=== PATIENT | female | born 2000 | race Caucasian/White ===

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

== ENCOUNTER 2022-07-28 07:23 | Emergency (ER) | payer OTHER, SELFPAY ==
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
--- NOTE | ~2022-07-28 | XR_ITS ---
AP view of the pelvis Clinical history: Pain Findings: No acute fracture or dislocation is seen. Osseous alignment is anatomic. Bilateral hip and SI joint spaces are preserved. Soft tissues are unremarkable. Impression: No significant abnormality is seen. Reviewed, dictated and finalized at location M. Impression: No significant abnormality is seen.
[2022-07-28 07:22] VITALS: BP 127/79; PULSE 95; RESP 14; TEMP 36.4; O2SAT 100
--- NOTE | 2022-07-28 07:40 | PC.NURSE ---
Dr. Melvin at bedside to assess pt.
[2022-07-28] MEDS: KETOROLAC (*BKC) 60 MG/2 ML VIAL IM (07:52)
--- NOTE | 2022-07-28 08:03 | PC.NURSE ---
Patient off unit to radiology.
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
[2022-07-28 10:01] VITALS: BP 131/84; PULSE 68; RESP 18; O2SAT 100
== END 2022-07-28 10:02 | disposition home or self-care (01) ==
PROVIDERS: Emergency Provider Emergency Medicine
DX: S39.012A Strain of muscle, fascia and tendon of lower back, initial encounter (principal); M25.552 Pain in left hip; V47.6XXA Car passenger injured in collision with fixed or stationary object in traffic accident, initial encounter; Y92.488 Other paved roadways as the place of occurrence of the external cause
CPT/HCPCS: 72100; 72170; 96372; 99283; J1885

== ENCOUNTER 2022-08-27 09:13 | Emergency (ER) | payer OTHER, SELFPAY ==
[2022-08-27 09:44] VITALS: BP 137/92; PULSE 88; RESP 18; TEMP 36.8; O2SAT 96
--- NOTE | 2022-08-27 10:41 | ED.URI ---
HPI - URI/Sore Throat General Chief Complaint: Upper Respiratory Infection Stated Complaint: st Time Seen by Provider: 08/27/22 09:49 Source: patient Mode of arrival: ambulatory Limitations: no limitations History of Present Illness HPI Narrative: Patient is a 22 y/o female who presents to the ED with c/o sore throat. Patient reports having a sore throat for the last 1 week. She also reports having some mild congestion, but denies cough, fevers, difficulty breathing or swallowing, nausea, vomiting, abdominal pain. Patient has been around another individual who did test positive for strep throat. She has not tried anything for symptoms. Related Data Home Medications Medication Instructions Recorded Confirmed albuterol sulfate 90 mcg/actuation 2 puff inhalation PRN PRN 09/08/20 11/16/20 aerosol inhaler Shortness Of Breath fluticasone propionate 44 See Rx Instructions .Route .COMPLEX 09/08/20 11/16/20 mcg/actuation HFA aerosol inhaler (Flovent HFA) vits no.130-ferrous fum 1 tablet PO DAILY 09/08/20 11/16/20 27 mg iron-folic acid 800 mcg tablet ( Vitamin) Allergies Allergy/AdvReac Type Severity Reaction Status Date / Time latex Allergy Mild Rash Verified 08/27/22 11:08 Review of Systems Review of Systems: CONSTITUTIONAL: Denies fever, chills, or sweats. ENT: See HPI. CARDIOVASCULAR: Denies chest pain. RESPIRATORY: Denies cough or dyspnea. GASTROINTESTINAL: Denies abdominal pain, nausea, vomiting. All systems reviewed & are unremarkable except as noted in HPI and below PMFSH Past Medical History Medical History Asthma (normal spontaneous vaginal delivery) Surgical History Surgical History No pertinent past surgical history Social History Social History Smoking status: Never smoker Second hand tobacco smoke exposure: No Substance use: never Gender identity (if verbalized by the patient): Female Spiritual care concerns: No Exam Narrative: GENERAL: Well appearing, obese, non-toxic, in no acute distress. HEAD: Normocephalic, atraumatic. ENT: Minimal posterior pharynx erythema, no tonsillar hypertrophy or exudate. No stridor or dysphagia. No trismus. Patient tolerating secretions. NECK: Supple. No significant adenopathy, no masses. RESPIRATORY: Airway patent, respirations nonlabored. Clear to auscultation bilaterally, no rales, rhonchi, wheezing. CARDIOVASCULAR: Regular rate and rhythm without murmurs, rubs, or gallops. Radial pulses 2+ and equal bilaterally. MUSCULOSKELETAL: Moves all extremities. Strength/ROM intact without gross deformities. SKIN: Warm, dry, normal color. No rashes. NEURO: A&O X3. Speech clear. Cranial nerves II-XII grossly intact. Steady gait. No ataxic movements. PSYCHIATRIC: Appropriate mood and affect. Normal interaction. Course Vital Signs Vital signs: Vital Signs Temperature 98.2 F 08/27/22 09:44 Pulse Rate 88 08/27/22 09:44 Respiratory Rate 18 08/27/22 09:44 Blood Pressure 137/92 H 08/27/22 09:44 Pulse Oximetry 96 08/27/22 09:44 Oxygen Delivery Room Air 08/27/22 09:44 Temperature 98.2 F 08/27/22 09:44 Pulse Rate 65 08/27/22 11:46 Respiratory Rate 16 08/27/22 11:46 Blood Pressure 110/86 08/27/22 11:46 Pulse Oximetry 98 08/27/22 11:46 Oxygen Delivery Room Air 08/27/22 11:09 MDM - URI/Sore Throat MDM Narrative Medical decision making narrative: Patient presented to ED with 1 week history of sore throat. Exposure to someone with strep throat. Exam with minimal erythema, no tonsillar hypertrophy or exudate. No concern for [employer]. No concern for airway compromise. Tolerating secretions. Vital stable. Afebrile. COVID, influenza, strep testing negative in the ED. Patient did have recen
[2022-08-27 11:09] VITALS: O2SAT 97
[2022-08-27 11:22] LABS: Strep Group A RT-PCR NOT DETECTED (Negative)
[2022-08-27 11:36] LABS: Influenza A QL RT-PCR Negative (Negative); Influenza B QL RT-PCR Negative (Negative); SARS-CoV-2 RNA PCR Negative (Negative)
[2022-08-27 11:46] VITALS: BP 110/86; PULSE 65; RESP 16; O2SAT 98
== END 2022-08-27 11:52 | disposition home or self-care (01) ==
PROVIDERS: Emergency Provider Physician Assistant
DX: J02.9 Acute pharyngitis, unspecified (principal); Z20.822 Contact with and (suspected) exposure to COVID-19; J45.909 Unspecified asthma, uncomplicated
CPT/HCPCS: 87636; 87651; 99283

== ENCOUNTER 2022-09-08 08:57 | Emergency (ER) | payer OTHER, SELFPAY ==
[2022-09-08] VITALS (19 sets, daily range): BP systolic 87–129; BP diastolic 56–90; PULSE 60–92; RESP 13–20; TEMP 36.2–36.8; O2SAT 92–100
[2022-09-08 09:27] LABS: Basophils Percent Auto 0.6 % (0.2-1.2); Eosinophils Absolute Auto 0.3 K/mm3 (0-0.3); Eosinophils Percent Auto 4.3 % (0-4.4); Hematocrit 42.6 % (37.0-47.0); Hemoglobin 13.5 g/dL (12.0-15.0); Immature Granulocyte Absolute 0.02 K/mm3 (0.00-0.031); Immature Granulocyte Percent A 0.3 % (0-0.5); Lymphocytes Absolute Auto 2.52 K/mm3 (0.9-3.2); Lymphocytes Percent Auto 39.9 % (18.3-44.2); Mean Corpuscular HGB Conc 31.7 g/dl (32-36); Mean Corpuscular Hemoglobin 26.9 pg (26-34); Mean Platelet Volume 10.9 fl (7.4-10.4); Monocytes Absolute Auto 0.5 K/mm3 (0.1-0.6); Monocytes Percent Auto 7.6 % (2.6-8.5); Neutrophils Percent Auto 47.3 % (45.5-73.1); Platelet Count Result 327 k/mm3 (150-375); Red Blood Count 5.01 M/mm3 (4.2-5.4); Red Cell Distribution Width 15.9 % (11.5-14.5); White Blood Count 6.3 K/mm3 (4.5-10.0)
[2022-09-08 09:36] LABS: Alanine Aminotransferase 19 U/L (6-35); Albumin Level 3.9 g/dL (3.5-5.1); Alkaline Phosphatase 83 U/L (38-126); Anion Gap 10 mmol/L (8-16); Aspartate Amino Transferase 21 U/L (14-36); Bilirubin,Total 0.4 mg/dL (0.2-1.3); Blood Urea Nitrogen 18 mg/dL (7-17); Calcium 8.3 mg/dL (8.4-10.2); Carbon Dioxide 20 mmol/L (22-30); Chloride 107 mmol/L (98-107); Estimated CRCL calculation 139 ml/min; Estimated Glomerular Filt Rate > 60; Glucose 98 mg/dL (65-110); Lipase 66 U/L (23-300); Potassium 4.1 mmol/L (3.4-5.0); Sodium 137 mmol/L (137-145)
--- NOTE | 2022-09-08 12:05 | ED.GENADULT ---
HPI - General Adult General Chief complaint: Nausea/Vomiting/Diarrhea Stated complaint: n/v Time Seen by Provider: 09/08/22 11:17 History of Present Illness HPI narrative: 22-year-old female presented emergency department for evaluation of intermittent abdominal cramping and nausea without vomiting. Patient states symptoms started few days ago and have been intermittent. Patient states she was feeling better yesterday but then symptoms worsened again today Related Data Home Medications Medication Instructions Recorded Confirmed albuterol sulfate 90 mcg/actuation 2 puff inhalation PRN PRN 09/08/20 11/16/20 aerosol inhaler Shortness Of Breath fluticasone propionate 44 See Rx Instructions .Route .COMPLEX 09/08/20 11/16/20 mcg/actuation HFA aerosol inhaler (Flovent HFA) vits no.130-ferrous fum 1 tablet PO DAILY 09/08/20 11/16/20 27 mg iron-folic acid 800 mcg tablet ( Vitamin) Allergies Allergy/AdvReac Type Severity Reaction Status Date / Time latex Allergy Mild Rash Verified 08/27/22 11:08 Review of Systems Review of Systems: All systems reviewed & are unremarkable except as noted in HPI and below PMFSH Past Medical History Medical History Asthma (normal spontaneous vaginal delivery) Surgical History Surgical History No pertinent past surgical history Social History Social History Smoking status: Never smoker Second hand tobacco smoke exposure: No Substance use: never Gender identity (if verbalized by the patient): Female Spiritual care concerns: No Exam Narrative: APPEARANCE: Well appearing, no pain, no distress, well-nourished. HEAD: normocephalic, atraumatic. EYES: PERRLA/EOMI, conjunctivae clear. NOSE: Normal no drainage NECK: Supple. No adenopathy, no masses. RESPIRATORY: Airway patent, respirations nonlabored. Clear to auscultation bilaterally, no rales, rhonchi, wheezing. CARDIOVASCULAR: Regular rate and rhythm without murmurs rubs or gallops. ABDOMINAL: Soft, nontender, nondistended, normal bowel sounds MUSCULOSKELETAL: Moves all extremities. Strength/ROM intact, No edema, No calf tenderness. NEURO: Alert. Cranial nerves II through XII intact. Grossly intact SKIN: Warm, dry. Normal Color Course Course Emergency Course: 22-year-old female presented ED for evaluation of nausea and vomiting. Patient is afebrile with no leukocytosis. Patient's chemistries were similar to her baseline. Patient's UA showed no evidence of urinary tract infection. Patient did feel improved with rehydration and nausea control with IV Zofran. Patient was advised to follow a clear liquid diet for the next few days and to take Zofran as needed for nausea control. Patient was encouraged of close follow-up with her primary care physician. Patient was also educated on reasons to return to the emerged department. All questions and concerns were addressed Vital Signs Vital signs: Vital Signs Temperature 97.1 F L 09/08/22 09:11 Pulse Rate 90 09/08/22 09:11 Respiratory Rate 16 09/08/22 09:11 Blood Pressure 116/74 09/08/22 09:11 Pulse Oximetry 97 09/08/22 09:11 Oxygen Delivery Room Air 09/08/22 09:11 Temperature 98.2 F 09/08/22 14:01 Pulse Rate 72 09/08/22 14:01 Respiratory Rate 20 09/08/22 14:01 Blood Pressure 102/62 09/08/22 14:01 Pulse Oximetry 100 09/08/22 14:01 Oxygen Delivery Room Air 09/08/22 11:32 Medical Decision Making Vital Signs Vital Signs: Vital Signs Temperature 97.1 F L 09/08/22 09:11 Pulse Rate 90 09/08/22 09:11 Respiratory Rate 16 09/08/22 09:11 Blood Pressure 116/74 09/08/22 09:11 Pulse Oximetry 97 09/08/22 09:11 Oxygen Delivery Room Air 09/08/22 09:11 Temperature 98.2 F 09/08/22 1
[2022-09-08 12:09] LABS: Add Urine Microscopic? YES; Appearance Urine Clear (Clear); Bacteria Urine None Seen /hpf; Bilirubin Urine Negative (Negative); Blood Urine Negative (Negative); Color Urine Yellow (Yellow); Glucose Urine UA Negative (Negative); Ketones Urine Negative (Negative); Leukocyte Esterase Ur Negative LEU/UL (Negative); Mucus Urine Present /lpf; Nitrate Urine Negative (Negative); Non Pathogenic Casts 0-2; Protein Urine Trace mg/dL (Negative); RBC Urine 0-2 /hpf (0-2); Specific Grav Ur 1.041 (1.001-1.035); Squamous Epithelial Cell Urine Few /hpf (Few); WBC Urine 0-5 /hpf; pH Urine 6.5 (5.0-9.0)
[2022-09-08] MEDS: SODIUM CHLORIDE 0.9% IV 1,000 ML 999 ML IV CONT (12:31)
[2022-09-08] MEDS: ONDANSETRON INJ 4 MG/2 ML VIAL IV PUSH (12:31)
== END 2022-09-08 14:37 | disposition home or self-care (01) ==
PROVIDERS: Emergency Provider Emergency Medicine
DX: R11.2 Nausea with vomiting, unspecified (principal); J45.909 Unspecified asthma, uncomplicated
CPT/HCPCS: 36415; 80053; 81001; 81025; 83690; 85025; 96361; 96374; 99284; J2405; J7030

== ENCOUNTER 2022-10-06 12:41 | Emergency (ER) | payer OTHER, SELFPAY ==
--- NOTE | ~2022-10-06 | CT_ITS ---
EXAMINATION: CT brain wo con DATE: 10/06/2022 13:40 INDICATION: Right temporal headache for a couple of days TECHNIQUE: Computed tomography (CT) of the head was performed without intravenous contrast. The mA wa s adjusted according to patient size. Iterative reconstruction technique was employed. Exam dose: 60 5.33 mGy-cm total exam DLP. COMPARISON: None FINDINGS: No intracranial mass lesion or hemorrhage or cerebrovascular accident is detected. No midli ne shift or mass effect effect. Normal simpson-white matter differentiation. Normal ventricular size. No subdural or epidural hematoma is detected. Posterior mucous retention cyst or polyp of left maxillary sinus. There is some patchy soft tissue th ickening the ethmoid air cells, right greater than left. Included paranasal sinuses and mastoid air c ells are otherwise unremarkable. No fracture or bone destruction of the cranial vault. IMPRESSION: No intracranial abnormality Reviewed, dictated and finalized at [facility]. Reviewed, dictated and finalized at location [] IMPRESSION: No intracranial abnormality
[2022-10-06 12:43] VITALS: BP 127/73; PULSE 142; RESP 18; TEMP 36.8; O2SAT 99
--- NOTE | 2022-10-06 12:52 | PC.NURSE ---
Patient states her friend gave her 100mg of THC gummies about an hour ago. patient had a headache prior to taking the gummies, but states it has gotten worse since.
[2022-10-06] MEDS: KETOROLAC 30 MG/ML VIAL (*BKC) IV PUSH (13:32)
[2022-10-06 13:42] LABS: Basophils Percent Auto 0.3 % (0.2-1.2); Eosinophils Absolute Auto 0.2 K/mm3 (0-0.3); Eosinophils Percent Auto 3.6 % (0-4.4); Hemoglobin 13.2 g/dL (12.0-15.0); Immature Granulocyte Absolute 0.01 K/mm3 (0.00-0.031); Immature Granulocyte Percent A 0.2 % (0-0.5); Lymphocytes Absolute Auto 2.29 K/mm3 (0.9-3.2); Lymphocytes Percent Auto 38.9 % (18.3-44.2); Mean Corpuscular HGB Conc 31.4 g/dl (32-36); Mean Corpuscular Hemoglobin 27.1 pg (26-34); Mean Corpuscular Volume 86.2 fl (80-100); Mean Platelet Volume 11.4 fl (7.4-10.4); Monocytes Absolute Auto 0.3 K/mm3 (0.1-0.6); Monocytes Percent Auto 4.9 % (2.6-8.5); Neutrophils Absolute Auto 3.1 K/mm3 (1.3-6.7); Neutrophils Percent Auto 52.1 % (45.5-73.1); Platelet Count Result 318 k/mm3 (150-375); Red Blood Count 4.87 M/mm3 (4.2-5.4); Red Cell Distribution Width 15.4 % (11.5-14.5); White Blood Count 5.9 K/mm3 (4.5-10.0)
[2022-10-06 13:53] LABS: Alanine Aminotransferase 23 U/L (6-35); Alkaline Phosphatase 81 U/L (38-126); Anion Gap 7 mmol/L (8-16); Aspartate Amino Transferase 30 U/L (14-36); Bilirubin,Total 0.6 mg/dL (0.2-1.3); Blood Urea Nitrogen 11 mg/dL (7-17); Calcium 8.9 mg/dL (8.4-10.2); Carbon Dioxide 24 mmol/L (22-30); Chloride 107 mmol/L (98-107); Estimated CRCL calculation 119 ml/min; Estimated Glomerular Filt Rate > 60; Glucose 125 mg/dL (65-110); Potassium 3.6 mmol/L (3.4-5.0); Sodium 138 mmol/L (137-145)
--- NOTE | 2022-10-06 14:02 | ED.HA ---
HPI - Headache General Chief Complaint: Headache Stated Complaint: headache Time Seen by Provider: 10/06/22 12:56 Source: patient Mode of arrival: ambulatory History of Present Illness HPI Narrative: 22 YEARS OLD WHITE FEMALE PRESENTS WITH INTERMITTENT RIGHT TEMPORAL HEADACHE STARTED 2 DAYS AGO AFTER EATING THE GUMMIES FOR THE 1ST TIME. THE LYMPHOMA, AND 06/09, SHE DENIES ANY FEVER, CHILLS, NAUSEA, VOMITING, DIARRHEA, CONSTIPATION. Related Data Home Medications Medication Instructions Recorded Confirmed albuterol sulfate 90 mcg/actuation 2 puff inhalation PRN PRN 09/08/20 11/16/20 aerosol inhaler Shortness Of Breath fluticasone propionate 44 See Rx Instructions .Route .COMPLEX 09/08/20 11/16/20 mcg/actuation HFA aerosol inhaler (Flovent HFA) vits no.130-ferrous fum 1 tablet PO DAILY 09/08/20 11/16/20 27 mg iron-folic acid 800 mcg tablet ( Vitamin) Allergies Allergy/AdvReac Type Severity Reaction Status Date / Time latex Allergy Mild Rash Verified 08/27/22 11:08 Review of Systems Review of Systems: All systems reviewed & are unremarkable except as noted in HPI and below PMFSH Past Medical History Medical History Asthma (normal spontaneous vaginal delivery) Surgical History Surgical History No pertinent past surgical history Social History Social History Smoking status: Never smoker Second hand tobacco smoke exposure: No Substance use: never Gender identity (if verbalized by the patient): Female Spiritual care concerns: No Exam Narrative: GENERAL APPEARANCE: WELL-DEVELOPED, WELL-NOURISHED SKIN: NORMAL COLOR HEAD: NORMOCEPHALIC, NONTRAUMATIC EYES: CLEAR CONJUNCTIVA ENT: OROPHARYNX NORMAL, EARS NORMAL, NOSE NORMAL NECK: SUPPLE, NONTENDER CHEST AND RESPIRATORY: AIRWAY PATENT, NO RESPIRATORY DISTRESS, NO ACCESSORY MUSCLE USE HEART: REGULAR RATE/RHYTHM ABDOMEN: SOFT, NONTENDER, NO ORGANOMEGALY, QUIET BOWEL SOUNDS VASCULAR: NORMAL PERIPHERAL PULSES, NORMAL CAPILLARY REFILL. MUSCULOSKELETAL: NORMAL RANGE OF MOTION, NONTENDER BACK NEUROLOGIC: ALERT AND ORIENTED ?3, ENAMEL APPLIER IS NORMAL TESTED, NO GROSS MOTOR DEFICIT Course Course Emergency Course: IMPROVED Vital Signs Vital signs: Vital Signs Temperature 36.8 C 10/06/22 12:43 Pulse Rate 142 H 10/06/22 12:43 Respiratory Rate 18 10/06/22 12:43 Blood Pressure 127/73 10/06/22 12:43 Pulse Oximetry 99 10/06/22 12:43 Oxygen Delivery Room Air 10/06/22 12:43 Temperature 36.8 C 10/06/22 12:43 Pulse Rate 142 H 10/06/22 12:43 Respiratory Rate 18 10/06/22 12:43 Blood Pressure 127/73 10/06/22 12:43 Pulse Oximetry 99 10/06/22 12:43 Oxygen Delivery Room Air 10/06/22 12:43 MDM - Headache MDM Narrative Medical decision making narrative: PATIENT PRESENTS WITH INTERMITTENT RIGHT TEMPORAL HEADACHE, AFTER EATING GUMMY IS 2 DAYS AGO. PHYSICAL EXAMINATION IS UNREMARKABLE, DIFFERENTIAL DIAGNOSIS, MARIJUANA RELATED SYMPTOMS, AND ANXIETY/DEPRESSION, WORKUP TODAY INCLUDES CT SCAN OF THE HEAD, CBC AND CMP CAME BACK WITHIN NORMAL LIMITS. PATIENT TO BE DISCHARGED ON TYLENOL, IBUPROFEN NEEDED. AND TO STOP USING GUMMIES Differential Diagnosis Differential diagnosis: Likely migraine, tension headache and headache Lab Data 10/06/22 13:32 10/06/22 13:32 Labs: Lab Results 10/06/22 Range/Units 13:32 WBC 5.9 (4.5-10.0) K/mm3 RBC 4.87 (4.2-5.4) M/mm3 Hgb 13.2 (12.0-15.0) g/dL Hct 42.0 (37.0-47.0)
[2022-10-06 15:28] VITALS: BP 117/78; PULSE 85; RESP 16; O2SAT 96
[2022-10-06 15:58] LABS: Amphetamine Screen Urine Negative (Negative); Barbiturate Screen Urine Negative (Negative); Benzodiazepines Screen Urine Negative (Negative); Cannabinoid Screen Urine Positive (Negative); Cocaine Screen Urine Negative (Negative); Methadone Screen Urine Negative (Negative); Opiate Screen Urine Negative (Negative); Phencyclidine Screen Urine Negative (Negative)
== END 2022-10-06 15:30 | disposition home or self-care (01) ==
PROVIDERS: Emergency Provider Emergency Medicine
DX: R51.9 Headache, unspecified (principal); J45.909 Unspecified asthma, uncomplicated
CPT/HCPCS: 36415; 70450; 80053; 80307; 85025; 96374; 99284; J1885

== ENCOUNTER 2023-01-20 21:05 | Emergency (ER) | payer OTHER, SELFPAY ==
[2023-01-20 21:07] VITALS: BP 123/79; PULSE 84; RESP 20; TEMP 36.6; O2SAT 100
--- NOTE | 2023-01-20 21:37 | ED.EAR ---
HPI - Ear Problem General Chief complaint: Ear Stated complaint: left ear pain Time Seen by Provider: 01/20/23 21:24 Source: patient Mode of arrival: EMS Limitations: no limitations History of Present Illness HPI Narrative: This is a 22-year-old female that presents to the emergency department for ear pain ongoing over the last 1 hour. Reports recently being diagnosed with an ear infection. She finished a round of amoxicillin for this. She started to have pain again an hour ago which prompted her to be seen again. Denies fevers or drainage. Related Data Home Medications Medication Instructions Recorded Confirmed albuterol sulfate 90 mcg/actuation 2 puff inhalation PRN PRN 09/08/20 11/16/20 aerosol inhaler Shortness Of Breath fluticasone propionate 44 See Rx Instructions .Route .COMPLEX 09/08/20 11/16/20 mcg/actuation HFA aerosol inhaler (Flovent HFA) vits no.130-ferrous fum 1 tablet PO DAILY 09/08/20 11/16/20 27 mg iron-folic acid 800 mcg tablet ( Vitamin) Allergies Allergy/AdvReac Type Severity Reaction Status Date / Time latex Allergy Mild Rash Verified 01/20/23 21:06 Review of Systems Review of Systems: CONSTITUTIONAL: Denies fever ENT: Reports otalgia. All systems reviewed & are unremarkable except as noted in HPI and below PMFSH Past Medical History Medical History Asthma (normal spontaneous vaginal delivery) Surgical History Surgical History No pertinent past surgical history Social History Social History Smoking status: Never smoker Second hand tobacco smoke exposure: No Substance use: never Gender identity (if verbalized by the patient): Female Spiritual care concerns: No Exam Narrative: GENERAL: Well-appearing, well-nourished, and in no acute distress. HEAD: Normocephalic, atraumatic. EYES: EOMI. ENT: Bilateral TMs pearly simpson non-bulging. External auditory canals are normal. No mastoid tenderness or erythema NECK: Supple. No adenopathy or masses. CHEST: No respiratory distress HEART: Regular rate EXTREMITIES: Normal range of motion. No edema. SKIN: Warm, dry, no rash. NEURO: No focal deficits. Alert and oriented x3. PSYCH: Normal mood and affect Course Vital Signs Vital signs: Vital Signs Temperature 97.9 F 01/20/23 21:07 Pulse Rate 84 01/20/23 21:07 Respiratory Rate 20 01/20/23 21:07 Blood Pressure 123/79 01/20/23 21:07 Pulse Oximetry 100 01/20/23 21:07 Oxygen Delivery Room Air 01/20/23 21:07 Temperature 97.9 F 01/20/23 21:07 Pulse Rate 84 01/20/23 21:07 Respiratory Rate 20 01/20/23 21:07 Blood Pressure 123/79 01/20/23 21:07 Pulse Oximetry 100 01/20/23 21:07 Oxygen Delivery Room Air 01/20/23 21:07 Medical Decision Making MDM Narrative Medical decision making narrative: Patient presents to the emergency department for left ear pain ongoing over the last hour. Has been evaluated for this complaint previously and has finished a round of amoxicillin. She is afebrile and nontoxic-appearing. Her external auditory canal and TM are normal. There are no signs of infection currently. She was instructed to continue Zyrtec and Flonase if needed. She is to follow-up with ENT. She was given warnings to return to the ER Differential Diagnosis Differential Diagnosis: Serous otitis media, acute otitis media, otitis externa Vital Signs Vital Signs: Vital Signs Temperature 97.9 F 01/20/23 21:07 Pulse Rate 84 01/20/23 21:07 Respiratory Rate 01/20/23 21:07 Blood Pressure 123/79 01/20/23 21:07 Pulse Oximetry 100 01/20/23 21:07 Oxygen Delivery Room Air 01/20/23 21:07 Temperature 97.9 F 01/20/23 21:07 Pulse Rate 84 01/20/23 21:07 Respiratory Rate 01/20/23 21:07 Blood Pressu
== END 2023-01-20 22:24 | disposition home or self-care (01) ==
LOC: ANHED 21:39
PROVIDERS: Emergency Provider Physician Assistant
DX: H92.02 Otalgia, left ear (principal); J45.909 Unspecified asthma, uncomplicated
CPT/HCPCS: 99281

== ENCOUNTER 2023-02-02 13:27 | Emergency (ER) | payer OTHER, SELFPAY ==
[2023-02-02] VITALS (14 sets, daily range): BP systolic 128–153; BP diastolic 78–101; PULSE 58–86; RESP 17–22; TEMP 36.7–36.8; O2SAT 97–100
--- NOTE | ~2023-02-02 | XR_ITS ---
EXAMINATION: XR chest 1V portable DATE: 02/02/2023 15:39 INDICATION: Asthma exacerbation. TECHNIQUE: A single frontal view of the chest was obtained. COMPARISON: None. FINDINGS: There is no pneumonia, pleural effusion, or pneumothorax. The heart size is normal. IMPRESSION: 1. No acute cardiopulmonary disease. Reviewed, dictated and finalized at [facility].
--- NOTE | 2023-02-02 14:59 | ED.ASTHMA ---
HPI - Asthma General Chief Complaint: Asthma Stated Complaint: asthma Time Seen by Provider: 02/02/23 13:53 History of Present Illness HPI Narrative: 22-year-old female with history of asthma reports for evaluation for shortness of breath and wheezing since she woke up this morning. Patient reports unproductive cough that developed this morning along with her symptoms. She states this is how she was presents with an asthma exacerbation. She currently does not have any inhalers or nebulizers at home and has not been medicated for asthma. She does not have a PCP. She states she was hospitalized once when she was between 17 and 19 years old for an asthma exacerbation. Reports she normally comes to the ED when she has difficulty breathing and gets a refill of her inhaler. She denies chest pain, lower extremity edema, calf pain, history of VTE, congestion, sore throat, otalgia, fever, body aches or chills, abdominal pain, nausea or vomiting, diarrhea, dysuria or hematuria. Related Data Home Medications Medication Instructions Recorded Confirmed albuterol sulfate 90 mcg/actuation 2 puff inhalation PRN PRN 09/08/20 11/16/20 aerosol inhaler Shortness Of Breath fluticasone propionate 44 See Rx Instructions .Route .COMPLEX 09/08/20 11/16/20 mcg/actuation HFA aerosol inhaler (Flovent HFA) vits no.130-ferrous fum 1 tablet PO DAILY 09/08/20 11/16/20 27 mg iron-folic acid 800 mcg tablet ( Vitamin) Allergies Allergy/AdvReac Type Severity Reaction Status Date / Time latex Allergy Mild Rash Verified 02/02/23 13:36 Review of Systems Review of Systems: CONSTITUTIONAL: Denies fever, chills EYES: Denies visual changes, redness, or discharge. ENT: Denies rhinorrhea, congestion, sore throat, or otalgia. CARDIOVASCULAR: Denies chest pain, palpitations, or edema. RESPIRATORY: See HPI GASTROINTESTINAL: Denies abdominal pain, nausea, vomiting, or diarrhea. GENITOURINARY: Denies dysuria or hematuria. SKIN: Denies rash or itching. MUSCULOSKELETAL: Denies back pain, joint pain, or myalgia. NEUROLOGIC: Denies headache, numbness, dizziness, or weakness. PSYCHIATRIC: Denies anxiety or depression. [facility] Past Medical History Medical History Asthma (normal spontaneous vaginal delivery) Surgical History Surgical History No pertinent past surgical history Social History Social History Smoking status: Never smoker Second hand tobacco smoke exposure: No Substance use: never Gender identity (if verbalized by the patient): Female Spiritual care concerns: No Exam Narrative: GENERAL: Well-appearing, in no acute distress. Patient resting comfortably in exam bed. HEAD: Normocephalic EYES: PERRLA ENT: Nares clear. Mucous membranes moist. Oropharynx without tonsillar hypertrophy exudate or other lesions. NECK: Supple. CHEST: Inspiratory and expiratory wheezing throughout all lung lynch. Labored breathing. No retractions. Speaking in full sentences without difficulty. HEART: Regular rate and rhythm. No murmur heard. Normal peripheral pulses. ABDOMEN: Soft, nontender, normal active bowel sounds. EXTREMITIES: Normal range of motion. No edema. Negative Homans. SKIN: Warm, dry, no rash. NEURO: No focal deficits. Alert and oriented x3. PSYCH: Normal mood and affect. Course Vital Signs Vital signs: Vital Signs Temperature 98.0 F 02/02/23 13:32 Pulse Rate 77 02/02/23 13:32 Respiratory Rate 22 H 02/02/23 13:32 Blood Pressure 136/90 02/02/23 13:32 Pulse Oximetry 98 02/02/23 13:32 Oxygen Delivery Room Air 02/02/23 13:32 Temperature 98.0 F 02/02/23 13:32 Pulse Rate 72 02/02/23 15:50 Respiratory Rate 18 02/02/23 15:50 Blood Pressure 135/78 02/02/23 15:16 Pulse Oximetry 9
[2023-02-02] MEDS: ALBUTEROL SULFATE NEB 2.5 MG/3 ML INH INHALATION ×2 (15:04→15:50)
[2023-02-02] MEDS: IPRATROPIUM BR 0.02% INH SOLN 0.5 MG/2.5 ML VIAL INHALATION ×2 (15:04→15:50)
[2023-02-02] MEDS: methylPREDNISolone SOD SUCC 125 MG VIAL IV PUSH (15:21)
[2023-02-02] MEDS: MAGNESIUM SULF 2 GM/WATER 50ML 2 GM/50 ML BAG IVPB (15:21)
[2023-02-02 16:07] LABS: Influenza A QL RT-PCR Negative (Negative); Influenza B QL RT-PCR Negative (Negative); SARS-CoV-2 RNA PCR Negative (Negative)
== END 2023-02-02 17:23 | disposition home or self-care (01) ==
PROVIDERS: Emergency Provider Physician Assistant
DX: J45.901 Unspecified asthma with (acute) exacerbation (principal); Z20.822 Contact with and (suspected) exposure to COVID-19
CPT/HCPCS: 71045; 87636; 94640; 96365; 96375; 99284; J2930; J3475

== ENCOUNTER 2023-03-02 12:40 | Emergency (ER) | payer OTHER, SELFPAY ==
[2023-03-02 12:47] VITALS: BP 151/64; PULSE 78; RESP 18; TEMP 36.7; O2SAT 100
--- NOTE | 2023-03-02 14:16 | ED.EAR ---
HPI - Ear Problem General Chief complaint: Ear Stated complaint: left ear pain, MACIAS and nasal drainage Time Seen by Provider: 03/02/23 13:05 Source: patient Mode of arrival: ambulatory Limitations: no limitations History of Present Illness HPI Narrative: Patient is a 22 y/o female who presents to the ED with c/o L ear pain. Patient reports she developed sinus congestion/pressure/drainage yesterday, along with L ear pain. Pain more severe today which prompted her presentation. Has been taking Ibuprofen for pain. Denies any ear drainage, fevers, cough, sore throat, known sick contacts. Related Data Home Medications Medication Instructions Recorded Confirmed albuterol sulfate 90 mcg/actuation 2 puff inhalation PRN PRN 09/08/20 11/16/20 aerosol inhaler Shortness Of Breath fluticasone propionate 44 See Rx Instructions .Route .COMPLEX 09/08/20 11/16/20 mcg/actuation HFA aerosol inhaler (Flovent HFA) vits no.130-ferrous fum 1 tablet PO DAILY 09/08/20 11/16/20 27 mg iron-folic acid 800 mcg tablet ( Vitamin) Allergies Allergy/AdvReac Type Severity Reaction Status Date / Time latex Allergy Mild Rash Verified 03/02/23 12:41 Review of Systems Review of Systems: CONSTITUTIONAL: Denies fever, chills, or sweats. ENT: See HPI. CARDIOVASCULAR: Denies chest pain. RESPIRATORY: Denies cough or dyspnea. GASTROINTESTINAL: Denies abdominal pain, nausea, vomiting. All systems reviewed & are unremarkable except as noted in HPI and below PMFSH Past Medical History Medical History Asthma (normal spontaneous vaginal delivery) Surgical History Surgical History No pertinent past surgical history Social History Social History Smoking status: Never smoker Second hand tobacco smoke exposure: No Substance use: never Gender identity (if verbalized by the patient): Female Spiritual care concerns: No Exam Narrative: GENERAL: Well appearing, obese with BMI of 31.5, non-toxic, in no acute distress. HEAD: Normocephalic, atraumatic. ENT: R TM clear. No evidence of AOM/AOE. L EAC mildly erythematous and swollen, difficult to fully visualize TM due to swelling. Tenderness to palpation with manipulation of pinna and palpation of tragus. The visualized portions of the TM do not appear erythematous or bulging. No drainage. No cerumen impaction. No significant posterior pharynx erythema. No tonsillar hypertrophy or exudate. Moist mucous membranes NECK: Supple. No adenopathy, no masses. RESPIRATORY: Airway patent, respirations nonlabored. CARDIOVASCULAR: Regular rate and rhythm without murmurs, rubs, or gallops. Radial pulses 2+ and equal bilaterally. MUSCULOSKELETAL: Moves all extremities. No gross deformities. SKIN: Warm, dry, normal color. No rashes. NEURO: A&O X3. Speech clear. Cranial nerves II-XII grossly intact. Steady gait. No ataxic movements. PSYCHIATRIC: Appropriate mood and affect. Normal interaction. Course Vital Signs Vital signs: Vital Signs Temperature 98.0 F 03/02/23 12:47 Pulse Rate 78 03/02/23 12:47 Respiratory Rate 18 03/02/23 12:47 Blood Pressure 151/64 H 03/02/23 12:47 Pulse Oximetry 100 03/02/23 12:47 Oxygen Delivery Room Air 03/02/23 12:47 Temperature 98.0 F 03/02/23 12:47 Pulse Rate 78 03/02/23 12:47 Respiratory Rate 18 03/02/23 12:47 Blood Pressure 151/64 H 03/02/23 12:47 Pulse Oximetry 100 03/02/23 12:47 Oxygen Delivery Room Air 03/02/23 12:47 Medical Decision Making [facility] Narrative Medical decision making narrative: 1 day history of left ear pain, viral type symptoms. Vital stable. Afebrile. Exam consistent with otitis externa, swelling noted to EAC however still able to visualize back to TM. No evidence of TM perforat
[2023-03-02] MEDS: NEOMYCIN/POLYMYXIN/HYDROCORT OT SUSP 10 ML BTL (*BKC) 3 DROP LEFT EAR (14:39)
[2023-03-02] MEDS: ACETAMINOPHEN 500 MG TABLET 1000 MG PO (14:40)
== END 2023-03-02 14:44 | disposition home or self-care (01) ==
PROVIDERS: Emergency Provider Physician Assistant
DX: H60.502 Unspecified acute noninfective otitis externa, left ear (principal); J45.909 Unspecified asthma, uncomplicated
CPT/HCPCS: 99283; A9270

== ENCOUNTER 2023-03-17 05:16 | Emergency (ER) | payer OTHER, SELFPAY ==
[2023-03-17 05:19] VITALS: BP 130/70; PULSE 80; RESP 15; TEMP 36.6; O2SAT 100
[2023-03-17 07:07] LABS: Strep Group A RT-PCR NOT DETECTED (Negative)
[2023-03-17 07:15] VITALS: BP 121/74; PULSE 60; RESP 20; O2SAT 100
[2023-03-17 07:18] LABS: Influenza A QL RT-PCR Negative (Negative); Influenza B QL RT-PCR Negative (Negative); SARS-CoV-2 RNA PCR Negative (Negative)
--- NOTE | 2023-03-17 07:44 | ED.GENADULT ---
HPI - General Adult General Chief complaint: Upper Respiratory Infection Stated complaint: sinus infection Time Seen by Provider: 03/17/23 06:59 History of Present Illness HPI narrative: Patient is a 22-year-old female who presents ER with sinus congestion. Ongoing for 2 weeks. Associated with postnasal drip and occasional cough. No fevers or chills. She has not tried any [id number] decongestants. No known sick contacts. She does have some fatigue. Related Data Home Medications Medication Instructions Recorded Confirmed albuterol sulfate 90 mcg/actuation 2 puff inhalation PRN PRN 09/08/20 11/16/20 aerosol inhaler Shortness Of Breath fluticasone propionate 44 See Rx Instructions .Route .COMPLEX 09/08/20 11/16/20 mcg/actuation HFA aerosol inhaler (Flovent HFA) vits no.130-ferrous fum 1 tablet PO DAILY 09/08/20 11/16/20 27 mg iron-folic acid 800 mcg tablet ( Vitamin) Allergies Allergy/AdvReac Type Severity Reaction Status Date / Time latex Allergy Mild Rash Verified 03/17/23 06:28 Review of Systems Review of Systems: All systems reviewed & are unremarkable except as noted in HPI and below Constitutional: Constitutional: Denies chills, Reports fatigue and Denies fever(s) ENT: Reports nasal congestion and Reports sore throat Respiratory: Respiratory: Reports cough, Denies dyspnea and Denies wheezing PMFSH Past Medical History Medical History Asthma (normal spontaneous vaginal delivery) Surgical History Surgical History No pertinent past surgical history Social History Social History Smoking status: Never smoker Second hand tobacco smoke exposure: No Substance use: never Gender identity (if verbalized by the patient): Female Spiritual care concerns: No Exam Narrative: GENERAL: Well-appearing, well-nourished, and in no acute distress. HEAD: Normocephalic, atraumatic. ENT: Mucous membranes moist. Normal-appearing posterior oropharynx. NECK: Supple. CHEST: Clear to auscultation. No respiratory distress. HEART: Regular rate and rhythm. Normal peripheral pulses. NEURO: Alert and oriented x3. PSYCH: Normal mood and affect. Course Course Emergency Course: COVID/flu/strep negative. Discussed supportive care. Discharge home. Vital Signs Vital signs: Vital Signs Temperature 97.9 F 03/17/23 05:19 Pulse Rate 80 03/17/23 05:19 Respiratory Rate 15 03/17/23 05:19 Blood Pressure 130/70 03/17/23 05:19 Pulse Oximetry 100 03/17/23 05:19 Oxygen Delivery Room Air 03/17/23 05:19 Temperature 97.9 F 03/17/23 05:19 Pulse Rate 60 03/17/23 07:15 Respiratory Rate 20 03/17/23 07:15 Blood Pressure 121/74 03/17/23 07:15 Pulse Oximetry 100 03/17/23 07:15 Oxygen Delivery Room Air 03/17/23 05:19 Medical Decision Making Vital Signs Vital Signs: Vital Signs Temperature 97.9 F 03/17/23 05:19 Pulse Rate 80 03/17/23 05:19 Respiratory Rate 15 03/17/23 05:19 Blood Pressure 130/70 03/17/23 05:19 Pulse Oximetry 100 03/17/23 05:19 Oxygen Delivery Room Air 03/17/23 05:19 Temperature 97.9 F 03/17/23 05:19 Pulse Rate 60 03/17/23 07:15 Respiratory Rate 20 03/17/23 07:15 Blood Pressure 121/74 03/17/23 07:15 Pulse Oximetry 100 03/17/23 07:15 Oxygen Delivery Room Air 03/17/23 05:19 Lab Data Labs: Lab Results 03/17/23 03/17/23 Range/Units 06:34 06:35 Influenza A (RT-PCR) Negative (Negative) Influenza B (RT-PCR) Negative (Negative) SARS-CoV-2 RNA (RT-PCR) Negative (Negative) Group A Strep (PCR) Not detected (Negative) Discharge Plan Discharge Clinical Impression: URI (upper respiratory infection) Patient Disposition: Home, Self-Care
== END 2023-03-17 08:01 | disposition home or self-care (01) ==
PROVIDERS: Student in an Organized Health Care Education/Training Program; Emergency Provider Emergency Medicine
DX: J06.9 Acute upper respiratory infection, unspecified (principal); Z20.822 Contact with and (suspected) exposure to COVID-19; J45.909 Unspecified asthma, uncomplicated
CPT/HCPCS: 87636; 87651; 99283

== ENCOUNTER 2023-04-06 17:29 | Emergency (ER) | payer SELFPAY ==
--- NOTE | 2023-04-06 17:46 | PC.NURSE ---
called for triage without answer at [phone]
--- NOTE | 2023-04-06 18:09 | PC.NURSE ---
no answer for triage at [phone]. patient seen walking out at [phone] and hasnt returned.
== END 2023-04-06 20:04 | disposition left against medical advice (07) ==
DX: Z53.21 Procedure and treatment not carried out due to patient leaving prior to being seen by health care provider (principal)
CPT/HCPCS: 99199

== ENCOUNTER 2023-05-03 16:37 | Emergency (ER) | payer MEDICAID, SELFPAY ==
--- NOTE | ~2023-05-03 | US_ITS ---
EXAMINATION: 1. US OB transvaginal 2. US OB <= 14 wk fetus add gest DATE: 05/03/2023 19:51 INDICATION: . Vaginal bleeding. TECHNIQUE: Real-time transvaginal pelvic ultrasound was performed. COMPARISON: None. FINDINGS: The uterus measures 7.2 x 4.5 x 4.9 cm. There are 2 cysts in the endometrial complex with mean diamet ers of 7 mm and 9 mm, respectively. If these findings are gestational sacs, they correlate with estim ated gestational ages of 5 weeks 3 days and 5 weeks 5 days, respectively. No pole or yolk sac i s identified. Right ovary is not identified. The left ovary measures 2.2 x 2.1 x 2.3 cm. There is no free fluid in the pelvis. IMPRESSION: 1. 2 cysts in the endometrial complex, which may be a dichorionic, diamniotic twin gestation. Sponta neous and ectopic are not excluded. Serial beta hCGs are recommended. Reviewed, dictated and finalized at location E. OPERATOR IMPRESSION: 1. 2 cysts in the endometrial complex, which may be a dichorionic, diamniotic twin gestation. Spontaneous and ectopic are not excluded. Se rial beta hCGs are recommended.
[2023-05-03 16:41] VITALS: BP 115/70; PULSE 82; RESP 18; TEMP 36.2; O2SAT 99
--- NOTE | 2023-05-03 17:23 | ED.PREGNANCY ---
HPI - General Chief complaint: Vaginal Bleeding Stated complaint: and bleeding Time Seen by Provider: 05/03/23 16:49 History of Present Illness HPI Narrative: Patient is a 22-year-old female presenting with vaginal bleeding. Patient states that she had a faintly positive test at the beginning of January. States that she had a short period at the beginning of February so she assumed she was not . States that she has not had a cycle since that time and she had a positive test 5 days ago. Today she had blood on the toilet paper when she wiped so she came in for evaluation. Denies any abdominal pain. No chest pain, shortness of breath, lightheadedness. No dysuria or hematuria. No further complaints. Related Data Home Medications Medication Instructions Recorded Confirmed albuterol sulfate 90 mcg/actuation 2 puff inhalation PRN PRN 09/08/20 11/16/20 aerosol inhaler Shortness Of Breath fluticasone propionate 44 See Rx Instructions .Route .COMPLEX 09/08/20 11/16/20 mcg/actuation HFA aerosol inhaler (Flovent HFA) vits no.130-ferrous fum 1 tablet PO DAILY 09/08/20 11/16/20 27 mg iron-folic acid 800 mcg tablet ( Vitamin) Allergies Allergy/AdvReac Type Severity Reaction Status Date / Time latex Allergy Mild Rash Verified 05/03/23 16:50 Review of Systems Review of Systems: All systems reviewed & are unremarkable except as noted in HPI and below PMFSH Past Medical History Medical History Asthma (normal spontaneous vaginal delivery) Surgical History Surgical History No pertinent past surgical history Social History Social History Smoking status: Never smoker Second hand tobacco smoke exposure: No Substance use: never Gender identity (if verbalized by the patient): Female Spiritual care concerns: No Exam Narrative: GENERAL: Well-appearing, well-nourished, and in no acute distress. HEAD: Normocephalic, atraumatic. EYES: PERRLA and EOMI. ENT: Nares clear, no rhinorrhea or epistaxis. Mucous membranes moist. NECK: Supple. CHEST: Clear to auscultation. No respiratory distress. HEART: Regular rate and rhythm ABDOMEN: Soft, nontender, nondistended EXTREMITIES: Normal range of motion. SKIN: Warm, dry, no rash. NEURO: Alert and oriented x3. PSYCH: Normal mood and affect. Course Vital Signs Vital signs: Vital Signs Temperature 97.1 F L 05/03/23 16:41 Pulse Rate 82 05/03/23 16:41 Respiratory Rate 18 05/03/23 16:41 Blood Pressure 115/70 05/03/23 16:41 Pulse Oximetry 99 05/03/23 16:41 Oxygen Delivery Room Air 05/03/23 16:41 Temperature 97.1 F L 05/03/23 16:41 Pulse Rate 78 05/03/23 20:16 Respiratory Rate 15 05/03/23 20:16 Blood Pressure 131/95 H 05/03/23 20:16 Pulse Oximetry 100 05/03/23 20:16 Oxygen Delivery Room Air 05/03/23 16:41 MDM - OB/Uterine Contractions MDM Narrative Medical decision making narrative: 22-year-old female presenting with vaginal bleeding vitals are stable. Exam remarkable for the above. Blood work is unremarkable. Beta hCG is greater than 15,000. Transvaginal ultrasound has been ordered. Ultrasound shows 2 cysts in the endometrial complex, which may be a dichorionic, diamniotic twin gestation. Spontaneous and ectopic are not excluded. Serial beta hCGs are recommended. patient was updated with these results. She has an appointment with her OB next week. Discussed that she needs to have an HCG drawn within 2 days. Patient voices understanding and she is agreeable with this plan. She denies further complaints or questions. Discharged in stable condition. Differential Diagnosis Differential diagnosis: Likely other ( First trimester
[2023-05-03 17:41] LABS: Basophils Percent Auto 0.5 % (0.2-1.2); Eosinophils Absolute Auto 0.1 K/mm3 (0-0.3); Eosinophils Percent Auto 1.7 % (0-4.4); Hematocrit 38.9 % (37.0-47.0); Hemoglobin 12.5 g/dL (12.0-15.0); Immature Granulocyte Absolute 0.03 K/mm3 (0.00-0.031); Immature Granulocyte Percent A 0.4 % (0-0.5); Lymphocytes Absolute Auto 2.25 K/mm3 (0.9-3.2); Lymphocytes Percent Auto 26.6 % (18.3-44.2); Mean Corpuscular HGB Conc 32.1 g/dl (32-36); Mean Corpuscular Hemoglobin 29.3 pg (26-34); Mean Corpuscular Volume 91.1 fl (80-100); Mean Platelet Volume 10.4 fl (7.4-10.4); Monocytes Absolute Auto 0.5 K/mm3 (0.1-0.6); Neutrophils Absolute Auto 5.5 K/mm3 (1.3-6.7); Neutrophils Percent Auto 64.8 % (45.5-73.1); Platelet Count Result 302 k/mm3 (150-375); Red Blood Count 4.27 M/mm3 (4.2-5.4); Red Cell Distribution Width 13.8 % (11.5-14.5); White Blood Count 8.5 K/mm3 (4.5-10.0)
[2023-05-03 17:44] LABS: Appearance Urine Cloudy (Clear); Bacteria Urine 4+ /hpf; Bilirubin Urine Negative (Negative); Blood Urine 3+ (Negative); Color Urine Yellow (Yellow); Glucose Urine UA Negative (Negative); Ketones Urine Trace mg/dL (Negative); Leukocyte Esterase Ur 1+ LEU/UL (Negative); Nitrate Urine Negative (Negative); Non Pathogenic Casts 0-2; Protein Urine Negative (Negative); RBC Urine 0-2 /hpf (0-2); Specific Grav Ur 1.023 (1.001-1.035); Squamous Epithelial Cell Urine Moderate /hpf (Few); Urobilinogen Urine 0.2 mg/dL (<2.0); WBC Urine 21-50 /hpf; pH Urine 6.5 (5.0-9.0)
[2023-05-03 17:48] LABS: Add Urine Microscopic? YES
[2023-05-03 17:51] LABS: Alanine Aminotransferase 13 U/L (6-35); Albumin Level 4.2 g/dL (3.5-5.1); Alkaline Phosphatase 85 U/L (38-126); Anion Gap 9 mmol/L (8-16); Aspartate Amino Transferase 18 U/L (14-36); Bilirubin,Total 0.5 mg/dL (0.2-1.3); Blood Urea Nitrogen 11 mg/dL (7-17); Calcium 9.2 mg/dL (8.4-10.2); Carbon Dioxide 23 mmol/L (22-30); Chloride 104 mmol/L (98-107); Estimated Glomerular Filt Rate > 60; Glucose 85 mg/dL (65-110); Potassium 4.3 mmol/L (3.4-5.0); Sodium 136 mmol/L (137-145)
[2023-05-03 17:54] LABS: Partial Thromboplastin Time 23.6 SECONDS (22.3-36.8); Prothrombin Time 13.4 Seconds (11.1-14.7)
[2023-05-03 20:16] VITALS: BP 131/95; PULSE 78; RESP 15; O2SAT 100
== END 2023-05-03 21:17 | disposition home or self-care (01) ==
PROVIDERS: Emergency Provider Emergency Medicine
DX: O20.9 Hemorrhage in early pregnancy, unspecified (principal); O99.511 Diseases of the respiratory system complicating pregnancy, first trimester; J45.909 Unspecified asthma, uncomplicated; Z3A.01 Less than 8 weeks gestation of pregnancy
CPT/HCPCS: 36415; 76802; 76817; 80053; 81001; 84702; 85025; 85610; 85730; 86850; 86900; 86901; 87077; 87086; 87186; 99284

== ENCOUNTER 2023-05-09 18:22 | Emergency (ER) | payer MEDICAID, SELFPAY ==
--- NOTE | ~2023-05-09 | US_ITS ---
CORRECTED REPORT corrected examination [place] [facility] [place] This report was recreated on 05/11/23. Original report was [facility]IC SUCCESS COORDINATOR EXAMINATION: US OB <= 14 weeks fetus w TV, US OB <= 14 wk fetus add gest INDICATION: Right lower quadrant pain TECHNIQUE: Sonography of the pelvis was performed by transabdominal and transvaginal techniques. COMPARISON: 05/03/2023. RESULT: Uterus: 8.7 x 4.9 x 5.5 cm. Anteverted. Homogenous myometrium. The cervix is long and closed. Intrauterine gestational sac: Multiple present. Fetus A: Mean Sac Diameter: 1.19 cm, corresponding gestational age 6 week 0 days. Yolk sac present, 0.34 cm. Embryo: [place] rump length: 0.31 cm, corresponding gestational age 5 weeks, 6 days. Gestational heart rate: present 113 bpm. Subgestational hematoma: Absent . Fetus B: Mean Sac Diameter: 1.76 cm, corresponding gestational age 6 week 5 days. Yolk sac: Present, 0.34 cm . Embryo: [place] rump length: 0.48 cm, corresponding gestational age 6 weeks, 1 days. Gestational heart rate: present 105 bpm. Subgestational hematoma: Absent . Right ovary: 3.1 x 2.0 x 2.1 cm. Vascular flow is present. No adnexal mass. Small adjacent simple cysts or dominant follicles. Left ovary: 2.6 x 2.4 x 2.1 cm. Vascular flow is present. No adnexal mass. 13 mm complex cyst, likely resolving and/or hemorrhagic corpus luteal cyst. Pelvis free fluid: None. IMPRESSION: Twin, live intrauterine gestations. Fetus A: Estimated Gestational Age: 5 weeks, 6 days by crown rump length. ZENON by ultrasound 01/03/2024. Fetus B: Estimated Gestational Age: 6 weeks, 1 days by crown rump length. ZENON by ultrasound 01/01/2024. Reviewed, dictated and finalized at location K. [facility] SUCCESS COORDINATOR MTDD IMPRESSION: Twin, live intrauterine gestations. Fetus A: Estimated Gestational Age: 5 weeks, 6 days by crown rump length. ZENON by ultras ound 01/03/2024. Fetus B: Estimated Gestational Age: 6 weeks, 1 days by crown rump length. ZENON by ultras ound 01/01/2024.
[2023-05-09 18:58] VITALS: BP 119/68; PULSE 102; RESP 18; TEMP 36.7; O2SAT 100
[2023-05-09 20:52] LABS: Basophils Percent Auto 0.4 % (0.2-1.2); Eosinophils Absolute Auto 0.3 K/mm3 (0-0.3); Eosinophils Percent Auto 4.4 % (0-4.4); Hematocrit 38.2 % (37.0-47.0); Hemoglobin 12.6 g/dL (12.0-15.0); Immature Granulocyte Absolute 0.03 K/mm3 (0.00-0.031); Immature Granulocyte Percent A 0.4 % (0-0.5); Lymphocytes Absolute Auto 1.84 K/mm3 (0.9-3.2); Lymphocytes Percent Auto 24.3 % (18.3-44.2); Mean Corpuscular Hemoglobin 29.8 pg (26-34); Mean Corpuscular Volume 90.3 fl (80-100); Mean Platelet Volume 10.7 fl (7.4-10.4); Monocytes Absolute Auto 0.5 K/mm3 (0.1-0.6); Monocytes Percent Auto 6.9 % (2.6-8.5); Neutrophils Absolute Auto 4.8 K/mm3 (1.3-6.7); Neutrophils Percent Auto 63.6 % (45.5-73.1); Platelet Count Result 264 k/mm3 (150-375); Red Blood Count 4.23 M/mm3 (4.2-5.4); Red Cell Distribution Width 13.7 % (11.5-14.5); White Blood Count 7.6 K/mm3 (4.5-10.0)
[2023-05-09 20:58] LABS: Appearance Urine Clear (Clear); Bacteria Urine 1+ /hpf; Bilirubin Urine Negative (Negative); Blood Urine Negative (Negative); Color Urine Yellow (Yellow); Glucose Urine UA Negative (Negative); Ketones Urine Negative (Negative); Leukocyte Esterase Ur Negative LEU/UL (Negative); Nitrate Urine Negative (Negative); Protein Urine 2+ mg/dL (Negative); RBC Urine 0-2 /hpf (0-2); Specific Grav Ur 1.029 (1.001-1.035); Squamous Epithelial Cell Urine Few /hpf (Few)
[2023-05-09 21:03] LABS: Alanine Aminotransferase 13 U/L (6-35); Albumin Level 4.3 g/dL (3.5-5.1); Alkaline Phosphatase 81 U/L (38-126); Anion Gap 10 mmol/L (8-16); Aspartate Amino Transferase 17 U/L (14-36); Bilirubin,Total 0.5 mg/dL (0.2-1.3); Blood Urea Nitrogen 7 mg/dL (7-17); Calcium 9.1 mg/dL (8.4-10.2); Carbon Dioxide 23 mmol/L (22-30); Chloride 105 mmol/L (98-107); Estimated CRCL calculation 160 ml/min; Estimated Glomerular Filt Rate > 60; Glucose 95 mg/dL (65-110); Lipase 50 U/L (23-300); Potassium 3.2 mmol/L (3.4-5.0); Sodium 138 mmol/L (137-145)
[2023-05-09 21:04] LABS: Add Urine Microscopic? YES
--- NOTE | 2023-05-09 22:00 | ED.GENADULT ---
HPI - General Adult General Chief complaint: Abdominal Pain Stated complaint: 10 weeks preg/abd pain Time Seen by Provider: 05/09/23 20:55 History of Present Illness HPI narrative: Patient 22-year-old female presents emergency department chief complaint of right lower quadrant pain. The patient reports that she was recently diagnosed with a twin but was not completely confirmed to be a intrauterine on ultrasound patient reports that she has been having abdominal discomfort today denies vaginal bleeding the patient was Rh positive on blood work done earlier this month. Related Data Home Medications Medication Instructions Recorded Confirmed albuterol sulfate 90 mcg/actuation 2 puff inhalation PRN PRN 09/08/20 11/16/20 aerosol inhaler Shortness Of Breath fluticasone propionate 44 See Rx Instructions .Route .COMPLEX 09/08/20 11/16/20 mcg/actuation HFA aerosol inhaler (Flovent HFA) vits no.130-ferrous fum 1 tablet PO DAILY 09/08/20 11/16/20 27 mg iron-folic acid 800 mcg tablet ( Vitamin) Allergies Allergy/AdvReac Type Severity Reaction Status Date / Time latex Allergy Mild Rash Verified 05/09/23 20:52 Review of Systems Review of Systems: A 10 system review of systems was completed on the patient and is negative except for what is stated in the HPI. Nursing and ancillary documentation was reviewed. [facility] Past Medical History Medical History Asthma (normal spontaneous vaginal delivery) Surgical History Surgical History No pertinent past surgical history Social History Social History Smoking status: Never smoker Second hand tobacco smoke exposure: No Substance use: never Gender identity (if verbalized by the patient): Female Spiritual care concerns: No Exam Narrative: GENERAL: Well-appearing, well-nourished, and in no acute distress. HEAD: Normocephalic, atraumatic. EYES: PERRLA and EOMI. ENT: Nares clear, no rhinorrhea or epistaxis. Mucous membranes moist. NECK: Supple. CHEST: Clear to auscultation. No respiratory distress. HEART: Regular rate and rhythm. No murmur heard. Normal peripheral pulses. ABDOMEN: Soft, minimal tenderness to palpation in the right lower quadrant, nondistended, normal active bowel sounds. EXTREMITIES: Normal range of motion. No edema. SKIN: Warm, dry, no rash. NEURO: No focal deficits. Alert and oriented x3. PSYCH: Normal mood and affect. Course Vital Signs Vital signs: Vital Signs Temperature 36.7 C 05/09/23 18:58 Pulse Rate 102 H 05/09/23 18:58 Respiratory Rate 18 05/09/23 18:58 Blood Pressure 119/68 05/09/23 18:58 Pulse Oximetry 100 05/09/23 18:58 Oxygen Delivery Room Air 05/09/23 18:58 Temperature 36.7 C 05/09/23 18:58 Pulse Rate 102 H 05/09/23 18:58 Respiratory Rate 18 05/09/23 18:58 Blood Pressure 119/68 05/09/23 18:58 Pulse Oximetry 100 05/09/23 18:58 Oxygen Delivery Room Air 05/09/23 18:58 Medical Decision Making [facility] Narrative Medical decision making narrative: Differential diagnosis includes UTI, appendicitis, ectopic , pain secondary to Laboratory studies were obtained showed normal CBC normal CMP quantitative hCG was greater than 15,000 urinalysis showed 6-10 white blood cells and 1+ bacteria Ultrasound showed a twin IUP no evidence of free fluid no evidence of ectopic Vital Signs Vital Signs: Vital Signs Temperature 36.7 C 05/09/23 18:58 Pulse Rate 102 H 05/09/23 18:58 Respiratory Rate 18 05/09/23 18:58 Blood Pressure 119/68 05/09/23 18:58 Pulse Oximetry 100 05/09/23 18:58 Oxygen Delivery Room Air 05/09/23 18:58 Temperature 36.7 C 05/09/23 18:58 Pulse Rate 102 H 05/09/23 18:58 Resp
[2023-05-09 22:43] VITALS: BP 125/81; PULSE 80; RESP 17; O2SAT 99
== END 2023-05-09 22:45 | disposition home or self-care (01) ==
PROVIDERS: Emergency Provider Emergency Medicine
DX: O23.41 Unspecified infection of urinary tract in pregnancy, first trimester (principal); N39.0 Urinary tract infection, site not specified; Z3A.10 10 weeks gestation of pregnancy; J45.909 Unspecified asthma, uncomplicated
CPT/HCPCS: 36415; 76801; 76802; 76817; 80053; 81001; 83690; 84702; 85025; 87077; 87086; 87088; 87186; 99284

== ENCOUNTER 2023-06-29 21:02 | Emergency (ER) | payer OTHER, SELFPAY ==
[2023-06-29 21:03] VITALS: BP 145/85; PULSE 71; RESP 18; TEMP 36.1; O2SAT 100
--- NOTE | 2023-06-29 21:25 | PC.NURSE ---
After having VS taken pt decided her BP was stable enough to go home. Education and f/u provided and patient aware to come back if needed and f/u with PCP.
== END 2023-06-29 22:42 | disposition left against medical advice (07) ==
LOC: ANHED 22:23
DX: R10.10 Upper abdominal pain, unspecified (principal)
CPT/HCPCS: 99199

== ENCOUNTER 2023-08-09 17:04 | Emergency (ER) | payer OTHER, SELFPAY ==
[2023-08-09 17:36] VITALS: BP 121/71; PULSE 87; RESP 16; TEMP 36.2; O2SAT 100
--- NOTE | 2023-08-09 19:14 | ED.ABDPAIN ---
HPI - Abdominal Pain General Chief Complaint: Abdominal Pain Stated Complaint: 19 weeks , abd pain Time Seen by Provider: 08/09/23 19:02 History of Present Illness HPI narrative: Patient is a 23-year-old female who is 19 weeks that presents to the ER with lower abdominal pain. Pulling pain that feels like it is in her lower abdomen moving her hips and back. She had this in previous pregnancies. She reports she has had some vaginal spotting for last week as well. Her OB is located in [place]. She was supposed to follow-up soon. She is unsure what her blood type is. Related Data Home Medications Medication Instructions Recorded Confirmed albuterol sulfate 90 mcg/actuation 2 puff inhalation PRN PRN 09/08/20 11/16/20 aerosol inhaler Shortness Of Breath fluticasone propionate 44 See Rx Instructions .Route .COMPLEX 09/08/20 11/16/20 mcg/actuation HFA aerosol inhaler (Flovent HFA) vits no.130-ferrous fum 1 tablet PO DAILY 09/08/20 11/16/20 27 mg iron-folic acid 800 mcg tablet ( Vitamin) Allergies Allergy/AdvReac Type Severity Reaction Status Date / Time latex Allergy Mild Rash Verified 05/09/23 20:52 PMFSH Past Medical History Medical History Asthma (normal spontaneous vaginal delivery) Surgical History Surgical History No pertinent past surgical history Social History Social History Smoking status: Never smoker Second hand tobacco smoke exposure: No Substance use: never Gender identity (if verbalized by the patient): Female Spiritual care concerns: No Exam Narrative: GENERAL: Well-appearing, well-nourished, and in no acute distress. HEAD: Normocephalic, atraumatic. ENT: Mucous membranes moist. CHEST: Clear to auscultation. No respiratory distress. HEART: Regular rate and rhythm. Normal peripheral pulses. ABDOMEN: Soft, nontender, Fundus palpated just below the umbilicus. PELVIC: Normal external genitalia. Vaginal vault without bleeding and only physiologic discharge. Normal appearing cervix is closed. EXTREMITIES: Normal range of motion. No edema. SKIN: Warm, dry, no rash. NEURO: Alert and oriented x3. PSYCH: Normal mood and affect. Course Course Emergency Course: Blood type O positive. No bleeding on exam. Positive heart tones patient felt the at home and ligament pain. Recommend Tylenol. Unable to get after hours ultrasound for this issue. Discharge. Vital Signs Vital signs: Vital Signs Temperature 97.2 F L 08/09/23 17:36 Pulse Rate 87 08/09/23 17:36 Respiratory Rate 16 08/09/23 17:36 Blood Pressure 121/71 08/09/23 17:36 Pulse Oximetry 100 08/09/23 17:36 Temperature 97.2 F L 08/09/23 17:36 Pulse Rate 67 08/09/23 20:31 Respiratory Rate 18 08/09/23 20:31 Blood Pressure 116/63 08/09/23 20:31 Pulse Oximetry 100 08/09/23 20:31 MDM - Abdominal Pain Lab Data 08/09/23 20:06 08/09/23 20:06 Labs: Lab Results 08/09/23 Range/Units 20:06 WBC 7.9 (4.5-10.0) K/mm3 RBC 3.69 L (4.2-5.4) M/mm3 Hgb 10.9 L (12.0-15.0) g/dL Hct 33.7 L (37.0-47.0) % MCV 91.3 (80-100) fl MCH 29.5 (26-34) pg MCHC 32.3 (32-36) g/dl RDW 13.7 (11.5-14.5) % Plt Count 272 (150-375) k/mm3 MPV 11.2 H (7.4-10.4) fl Immature Gran % (Auto) 1.9 H (0-0.5) % Neut % (Auto) 56.7 (45.5-73.1) % Lymph % (Auto) 30.8 (18.3-44.2) % [place] % (Auto) 7.6 (2.6-8.5) % Eos % (Auto) 2.5 (0-4.4) % Baso % (Auto) 0.5 (0.2-1.2) % Lymph # (Auto) 2.44 (0.9-3.2) K/mm3 [place] # (Auto) 0.6 (0.1-0.6) K/mm3 Eos # (Auto) 0.2 (0-0.3) K/mm3 Baso # (Auto) 0.0 (0.0-0.1) K/mm3 Abs Immat Gran (auto) 0.15 H (0.00-0.031) K/mm3 Absolute Neuts (auto) 4.5 (1.3-6
[2023-08-09 20:31] VITALS: BP 116/63; PULSE 67; RESP 18; O2SAT 100
[2023-08-09 20:33] LABS: Basophils Percent Auto 0.5 % (0.2-1.2); Eosinophils Absolute Auto 0.2 K/mm3 (0-0.3); Eosinophils Percent Auto 2.5 % (0-4.4); Hematocrit 33.7 % (37.0-47.0); Hemoglobin 10.9 g/dL (12.0-15.0); Immature Granulocyte Absolute 0.15 K/mm3 (0.00-0.031); Immature Granulocyte Percent A 1.9 % (0-0.5); Lymphocytes Absolute Auto 2.44 K/mm3 (0.9-3.2); Lymphocytes Percent Auto 30.8 % (18.3-44.2); Mean Corpuscular HGB Conc 32.3 g/dl (32-36); Mean Corpuscular Hemoglobin 29.5 pg (26-34); Mean Corpuscular Volume 91.3 fl (80-100); Mean Platelet Volume 11.2 fl (7.4-10.4); Monocytes Absolute Auto 0.6 K/mm3 (0.1-0.6); Monocytes Percent Auto 7.6 % (2.6-8.5); Neutrophils Absolute Auto 4.5 K/mm3 (1.3-6.7); Neutrophils Percent Auto 56.7 % (45.5-73.1); Platelet Count Result 272 k/mm3 (150-375); Red Blood Count 3.69 M/mm3 (4.2-5.4); Red Cell Distribution Width 13.7 % (11.5-14.5); White Blood Count 7.9 K/mm3 (4.5-10.0)
[2023-08-09 21:26] LABS: Alanine Aminotransferase 10 U/L (6-35); Albumin Level 3.4 g/dL (3.5-5.1); Alkaline Phosphatase 84 U/L (38-126); Anion Gap 6 mmol/L (4-12); Aspartate Amino Transferase 15 U/L (14-36); Bilirubin,Total 0.4 mg/dL (0.2-1.3); Blood Urea Nitrogen 6 mg/dL (7-17); Calcium 8.8 mg/dL (8.4-10.2); Carbon Dioxide 22 mmol/L (22-30); Chloride 107 mmol/L (98-107); Estimated CRCL calculation 250 ml/min; Estimated Glomerular Filt Rate > 60; Glucose 67 mg/dL (65-110); Potassium 3.8 mmol/L (3.4-5.0); Sodium 135 mmol/L (137-145)
== END 2023-08-09 22:28 | disposition home or self-care (01) ==
PROVIDERS: Emergency Provider Emergency Medicine
DX: O26.892 Other specified pregnancy related conditions, second trimester (principal); R10.2 Pelvic and perineal pain; O99.512 Diseases of the respiratory system complicating pregnancy, second trimester; J45.909 Unspecified asthma, uncomplicated; Z3A.19 19 weeks gestation of pregnancy
CPT/HCPCS: 36415; 80053; 85025; 85461; 86850; 86900; 86901; 99284

== ENCOUNTER 2023-08-26 21:55 | Observation (INO) | payer OTHER, SELFPAY ==
[2023-08-26 22:32] VITALS: BP 111/61; PULSE 72
[2023-08-26 22:45] VITALS: BP 107/62; PULSE 74
[2023-08-26 23:14] LABS: Appearance Urine Clear (Clear); Bilirubin Urine Negative (Negative); Blood Urine Negative (Negative); Color Urine Yellow (Yellow); Glucose Urine UA Negative (Negative); Ketones Urine Negative (Negative); Leukocyte Esterase Ur Negative LEU/UL (Negative); Nitrate Urine Negative (Negative); Protein Urine Negative (Negative); Specific Grav Ur 1.021 (1.001-1.035)
[2023-08-26 23:26] LABS: Add Urine Microscopic? NO
[2023-08-26 23:41] VITALS: BMI 35.1
--- NOTE | 2023-08-26 23:41 | OBADM ---
This patient, Pablo Finney, admitted to the OB room OB Post 117 for observation. Patient/family oriented to hospital policies and general routines including ID bracelet, bed and alarms, visiting hours, pain management, procedures, bathroom and other care routines, personal items, smoking policy, room service/diet, and visiting hours. Patient/Family are encouraged to report perceived risks to care and to ask questions if they do not understand what they are told or what they should do.
--- NOTE | 2023-08-29 07:41 | PM.OBTRLD ---
OB - Triage/Final Diagnosis Visit Information Date of evaluation: 08/26/23 Reason for evaluation: other (abdominal pain) Comments/Additional reasons for admission: I have assessed the risk for this patient, Pablo Finney, and determined that she would benefit from observation care. Evaluation Laboratory results: Laboratory Tests 08/26/23 23:07 Urine Color Yellow Urine Appearance Clear Urine pH 6.0 Ur Specific [place] 1.021 Urine Protein Negative Urine Glucose (UA) Negative Urine Ketones Negative Ur Blood (Man) Negative Urine Nitrate Negative Urine Bilirubin Negative Urine Urobilinogen 1.0 Leukocyte Esterase Rfl Negative Comments: +FHTs x 2, no evidence of PTL or ROM. DC home. To f/up with primary BROADCAST TRAFFIC COORDINATOR
== END 2023-08-26 23:55 ==
PROVIDERS: Advanced Practice Midwife; Admitting Provider Obstetrics & Gynecology Gynecology; Visit Provider Obstetrics & Gynecology Gynecology
DX: O26.892 Other specified pregnancy related conditions, second trimester (principal); R10.9 Unspecified abdominal pain; Z3A.21 21 weeks gestation of pregnancy
CPT/HCPCS: 81003; G0378; G0379

== ENCOUNTER 2023-09-25 15:00 | Observation (INO) | payer OTHER, SELFPAY ==
[2023-09-25] VITALS (7 sets, daily range): BP systolic 88–106; BP diastolic 51–67; PULSE 69–84; TEMP 36.6; BMI 35.2
[2023-09-25 16:53] LABS: Appearance Urine Clear (Clear); Bacteria Urine None Seen /hpf; Bilirubin Urine Negative (Negative); Blood Urine Negative (Negative); Color Urine Yellow (Yellow); Glucose Urine UA Negative (Negative); Ketones Urine Negative (Negative); Leukocyte Esterase Ur Trace LEU/UL (Negative); Need Manual Microscopic Reviewed; Nitrate Urine Negative (Negative); Non Pathogenic Casts 0-2; Protein Urine Negative (Negative); Squamous Epithelial Cell Urine Moderate /hpf (Few); WBC Urine 0-5 /hpf (0-3); pH Urine 6.5 (5.0-9.0)
[2023-09-25 16:57] LABS: Add Urine Microscopic? YES
--- NOTE | 2023-09-26 09:22 | PM.OBTRLD ---
OB - Triage/Final Diagnosis Visit Information Reason for evaluation: threatened labor Comments/Additional reasons for admission: I have assessed the risk for this patient, Pablo Finney, and determined that she would benefit from observation care. Evaluation Laboratory results: Laboratory Tests 09/25/23 16:26 Urine Color Yellow Urine Appearance Clear Urine pH 6.5 Ur Specific [place] 1.020 Urine Protein Negative Urine Glucose (UA) Negative Urine Ketones Negative Ur Blood (Man) Negative Urine Nitrate Negative Urine Bilirubin Negative Urine Urobilinogen 1.0 Add Ur Microanalysis Reviewed Leukocyte Esterase Rfl Trace H Urine RBC 6-10 H Urine WBC 0-5 Ur Squamous Epith Cells Moderate Urine Bacteria None seen Urine Casts 0-2 Vital signs: Vital Signs - 24 hr 09/25/23 15:51 09/25/23 16:03 09/25/23 16:15 Temperature Pulse Rate 77 73 69 Blood Pressure 103/60 88/51 L 96/56 L 09/25/23 16:30 09/25/23 16:45 09/25/23 17:00 Temperature Pulse Rate 84 72 74 Blood Pressure 102/64 101/67 106/61 09/25/23 17:18 Temperature 97.9 F Pulse Rate Blood Pressure
== END 2023-09-25 17:13 | disposition home or self-care (01) ==
PROVIDERS: Admitting Provider Obstetrics & Gynecology; Visit Provider Obstetrics & Gynecology
DX: O47.02 False labor before 37 completed weeks of gestation, second trimester (principal); Z3A.25 25 weeks gestation of pregnancy
CPT/HCPCS: 81001; G0379

== ENCOUNTER 2023-10-13 14:33 | Observation (INO) | payer OTHER, SELFPAY ==
--- NOTE | ~2023-10-13 | US_ITS ---
LIMITED OBSTETRIC ULTRASOUND/BIOPHYSICAL PROFILE Ordering provider: Jeremias Ceja MD History: . twins/unable to get NST . Comparison: None. FINDINGS: Twin . PRESENTATION: A: Breech. B: Vertex. Longitudinal lie PLACENTAL LOCATION: Anterior No previa. HEART RATE: A:134 bpm B: 154 (normal is between 110 to 160 bpm). AMNIOTIC FLUID INDEX: Normal. Largest vertical pocket is A:3.7 cm. B: 2.5 cm normal OTHER: Maternal ovaries not visualized. SCORE: breathing movements: 2 movements: 2 tone: 2 Amniotic fluid volume: 2 Total: 8 IMPRESSION: Normal biophysical profile for both. Reviewed, dictated and finalized at location A.
--- NOTE | ~2023-10-13 | US_ITS ---
LIMITED OBSTETRIC ULTRASOUND/BIOPHYSICAL PROFILE Ordering provider: Jeremias Ceja MD History: . twins/unable to get NST . Comparison: None. FINDINGS: Twin . PRESENTATION: A: Breech. B: Vertex. Longitudinal lie PLACENTAL LOCATION: Anterior No previa. HEART RATE: A:134 bpm B: 154 (normal is between 110 to 160 bpm). AMNIOTIC FLUID INDEX: Normal. Largest vertical pocket is A:3.7 cm. B: 2.5 cm normal OTHER: Maternal ovaries not visualized. SCORE: breathing movements: 2 movements: 2 tone: 2 Amniotic fluid volume: 2 Total: 8 IMPRESSION: Normal biophysical profile for both. Reviewed, dictated and finalized at location A.
[2023-10-13 15:01] VITALS: BP 122/60; PULSE 108
[2023-10-13 15:08] VITALS: BMI 34.8
--- NOTE | 2023-10-13 15:09 | OBADM ---
This patient, Pablo Finney, admitted to the OB room OB Post 116 for observation. Patient/family oriented to hospital policies and general routines including ID bracelet, bed and alarms, visiting hours, pain management, procedures, bathroom and other care routines, personal items, smoking policy, room service/diet, and visiting hours. Patient/Family are encouraged to report perceived risks to care and to ask questions if they do not understand what they are told or what they should do.
[2023-10-13 15:12] LABS: Appearance Urine Clear (Clear); Bacteria Urine Rare /hpf; Bilirubin Urine Negative (Negative); Blood Urine Negative (Negative); Color Urine Dark Yellow (Yellow); Glucose Urine UA Negative (Negative); Ketones Urine Trace mg/dL (Negative); Leukocyte Esterase Ur Trace LEU/UL (Negative); Nitrate Urine Negative (Negative); Non Pathogenic Casts 0-2; Protein Urine 1+ mg/dL (Negative); RBC Urine 0-2 /hpf (0-2); Specific Grav Ur 1.038 (1.001-1.035); Squamous Epithelial Cell Urine Moderate /hpf (Few); pH Urine 6.5 (5.0-9.0)
[2023-10-13 15:13] LABS: Add Urine Microscopic? YES
[2023-10-13 15:15] VITALS: BP 120/69; PULSE 109
[2023-10-13 15:30] VITALS: BP 116/55; PULSE 107
[2023-10-13 15:39] LABS: Hematocrit 29.4 % (37.0-47.0); Mean Corpuscular HGB Conc 30.6 g/dl (32-36); Mean Corpuscular Hemoglobin 26.5 pg (26-34); Mean Corpuscular Volume 86.7 fl (80-100); Mean Platelet Volume 11.5 fl (7.4-10.4); Platelet Count Result 261 k/mm3 (150-375); Red Blood Count 3.39 M/mm3 (4.2-5.4); White Blood Count 10.9 K/mm3 (4.5-10.0)
[2023-10-13 15:51] LABS: Alanine Aminotransferase 13 U/L (6-35); Albumin Level 3.2 g/dL (3.5-5.1); Alkaline Phosphatase 111 U/L (38-126); Anion Gap 7 mmol/L (4-12); Aspartate Amino Transferase 18 U/L (14-36); Bilirubin,Total 0.6 mg/dL (0.2-1.3); Blood Urea Nitrogen 9 mg/dL (7-17); Calcium 8.5 mg/dL (8.4-10.2); Carbon Dioxide 21 mmol/L (22-30); Chloride 108 mmol/L (98-107); Estimated CRCL calculation 168 ml/min; Estimated Glomerular Filt Rate > 60; Glucose 108 mg/dL (65-110); Potassium 3.9 mmol/L (3.4-5.0); Sodium 136 mmol/L (137-145)
--- NOTE | 2023-10-13 15:53 | PC.NURSE ---
1433:Patient arrives on unit visually distressed with no shirt on. Patient states she was at work and within the last hour has had pain across her upper abdomen that caused her to lay on the floor and not get up. Patient is rating her pain an 8 out of 10 and describing the pain as a stabbing and constant pain. Patient states she has twins and has been feeling them move.
[2023-10-13 15:54] LABS: Barbiturate Screen Urine Negative (Negative); Benzodiazepines Screen Urine Negative (Negative)
[2023-10-13 16:03] LABS: Amphetamine Screen Urine Negative (Negative); Cannabinoid Screen Urine Negative (Negative); Methadone Screen Urine Negative (Negative); Opiate Screen Urine Negative (Negative); Phencyclidine Screen Urine Negative (Negative)
--- NOTE | 2023-10-13 16:03 | PC.NURSE ---
1520: RN called walk in doctor, Dr. Cornelio Ceja to inform him of patient's complaints and that RN is unable to obtain NST due to patient trashing in the bed. Orders to get CBC, CMP, UA, Urine drug screens, and get BPP and placenta check. 1600: RN reported UA, CBC and CMP results. Orders to get an amylase and lipase as well. OB aware that patient down in ultrasound at this time.
[2023-10-13 16:15] LABS: Amylase 68 U/L (30-110); Lipase 62 U/L (23-300)
[2023-10-13 16:45] VITALS: BP 126/86; PULSE 94
[2023-10-13 17:00] VITALS: BP 119/97; PULSE 89
[2023-10-13 17:15] VITALS: BP 117/81; PULSE 93
[2023-10-13 17:20] LABS: Cocaine Screen Urine Negative (Negative)
--- NOTE | 2023-10-13 17:28 | PC.NURSE ---
1725: RN phoned Dr. Cornelio Ceja to inform him of patient's lab results and ultrasound report. OB aware patient is still having pain, orders to give 1 g of Tylenol PO an discharge patient home with instructions on when to come back to the hospital and to keep her next appointment with her OB in [place] on 10/17/2023.
[2023-10-13] MEDS: ACETAMINOPHEN 500 MG TABLET 1000 MG PO (17:40)
--- NOTE | 2023-10-13 17:48 | PC.NURSE ---
1742: RN reviewed discharge paper work with patient. Patient aware and agreeable of discharged plan.
--- NOTE | 2023-10-15 11:31 | P.PNOB_ITS ---
OB - Triage/Final Diagnosis Visit Information Reason for evaluation: threatened labor Comments/Additional reasons for admission: I have assessed the risk for this patient, Pablo Finney, and determined that she would benefit from observation care. Evaluation Laboratory results: Laboratory Tests 10/13/23 10/13/23 14:56 15:30 WBC 10.9 H RBC 3.39 L Hgb 9.0 L Hct 29.4 L MCV 86.7 MCH 26.5 MCHC 30.6 L RDW 15.0 H Plt Count 261 MPV 11.5 H Sodium 136 L Potassium 3.9 Chloride 108 H Carbon Dioxide 21 L Anion Gap 7 BUN 9 Creatinine 0.50 L Estim Creat Clear Calc 168 Estimated GFR > 60 Glucose 108 Calcium 8.5 Total Bilirubin 0.6 AST 18 ALT 13 Alkaline Phosphatase 111 Total Protein 6.0 L Albumin 3.2 L Amylase 68 Lipase 62 Urine Color Dark yellow Urine Appearance Clear Urine pH 6.5 Ur Specific [place] 1.038 H Urine Protein 1+ H Urine Glucose (UA) Negative Urine Ketones Trace H Ur Blood (Man) Negative Urine Nitrate Negative Urine Bilirubin Negative Urine Urobilinogen 1.0 Leukocyte Esterase Rfl Trace H Urine RBC 0-2 Urine WBC 6-10 H Ur Squamous Epith Cells Moderate Urine Bacteria Rare Urine Casts 0-2 Urine Opiates Screen Negative Urine Methadone Screen Negative Ur Barbiturates Screen Negative Ur Phencyclidine Scrn Negative Ur Amphetamine Screen Negative U Benzodiazepines Scrn Negative Urine Cocaine Screen Negative U Cannabinoids Screen Negative
== END 2023-10-13 17:44 | disposition home or self-care (01) ==
PROVIDERS: Admitting Provider Obstetrics & Gynecology; Visit Provider Obstetrics & Gynecology
DX: O47.03 False labor before 37 completed weeks of gestation, third trimester (principal); Z3A.28 28 weeks gestation of pregnancy
CPT/HCPCS: 36415; 76815; 76819; 80053; 80307; 81001; 82150; 83690; 85027; 87086; A9270; G0378; G0379

== ENCOUNTER 2024-02-02 17:44 | Emergency (ER) | payer OTHER, SELFPAY ==
--- NOTE | ~2024-02-02 | XR_ITS ---
EXAM: XR foot LT min 3V DATE: 02/02/2024 18:07 HISTORY: injury 2d ago, BRUISING TO TOES AND LATERAL FOOT . COMPARISON: None available. FINDINGS: Normal mineralization. Nondisplaced transverse fracture of the proximal aspect of the left fifth metatarsal. No lytic or blastic lesion. Joint spaces are maintained. No erosion or periosteal change. Soft tissues within normal limits. IMPRESSION: Nondisplaced left fifth metatarsal base avulsion fracture. Reviewed, dictated and finalized at location K.
--- NOTE | ~2024-02-02 | XR_ITS ---
EXAM: XR ankle LT min 3V DATE: 02/02/2024 18:20 HISTORY: injury . COMPARISON: X-ray left foot, same date. FINDINGS: Normal mineralization. No ankle fracture or dislocation. Redemonstration of the nondisplac ed left fifth metatarsal base avulsion fracture No lytic or blastic lesion. Joint spaces are maintain ed. No erosion or periosteal change. Soft tissues within normal limits. IMPRESSION: No acute osseous finding in the left ankle. Reviewed, dictated and finalized at location K.
[2024-02-02 17:46] VITALS: BP 114/74; PULSE 104; RESP 20; TEMP 36.2; O2SAT 99
--- NOTE | 2024-02-02 18:32 | ED.LOWEXIN ---
HPI - Extremity Injury (Lower) General Chief Complaint: Extremity Injury, Lower Stated Complaint: left foot injury Time Seen by Provider: 02/02/24 17:54 History of Present Illness HPI Narrative: Patient missed a step about 2 days ago and has had persistent pain, swelling, bruising to her left foot and ankle. No focal numbness or weakness Related Data Home Medications Medication Instructions Recorded Confirmed albuterol sulfate 90 mcg/actuation 2 puff inhalation PRN PRN 09/08/20 11/16/20 aerosol inhaler Shortness Of Breath fluticasone propionate 44 See Rx Instructions .Route .COMPLEX 09/08/20 11/16/20 mcg/actuation HFA aerosol inhaler (Flovent HFA) Allergies Allergy/AdvReac Type Severity Reaction Status Date / Time latex Allergy Mild Rash Verified 05/09/23 20:52 Review of Systems Review of Systems: All systems reviewed & are unremarkable except as noted in HPI and below PMFSH Past Medical History Medical History Asthma (normal spontaneous vaginal delivery) Surgical History Surgical History No pertinent past surgical history Social History Social History Smoking status: Never smoker Second hand tobacco smoke exposure: No Substance use: never Gender identity (if verbalized by the patient): Female Spiritual care concerns: No Exam Narrative: EXAMINATION OF ORGAN SYSTEMS/BODY AREAS: Constitutional: Vital signs per nursing GENERAL:[No acute distress, non-toxic appearing.] HEAD: Normal with no signs of head trauma. EYES: EOMI, conjunctiva normal ENT: Hearing grossly intact LUNGS: Nonlabored breathing. HEART: [Regular rate and rhythm], normal DP pulse ABD: [Soft], [nontender to palpation] EXT: Normal range of motion, swelling and tenderness to left foot and ankle SKIN: Bruising to left foot and ankle NEURO: [Alert and oriented x 3. No gross focal sensory or strength deficits.] PSYCH: Normal affect Course Vital Signs Vital signs: Vital Signs Temperature 97.2 F L 02/02/24 17:46 Pulse Rate 104 H 02/02/24 17:46 Respiratory Rate 20 02/02/24 17:46 Blood Pressure 114/74 02/02/24 17:46 Pulse Oximetry 99 02/02/24 17:46 Oxygen Delivery Room Air 02/02/24 17:46 Temperature 97.2 F L 02/02/24 17:46 Pulse Rate 104 H 02/02/24 17:46 Respiratory Rate 20 02/02/24 17:46 Blood Pressure 114/74 02/02/24 17:46 Pulse Oximetry 99 02/02/24 17:46 Oxygen Delivery Room Air 02/02/24 17:46 Procedures Orthopedic Splinting/Casting Injury #1: Splinting/Casting Date: 02/02/24 Splinting/Casting Time: 18:41 Side: left Lower Extremity Injury Location: foot Lower Extremity Immobilizer: posterior splint Splint: customized in ED OCL: short leg Pre-Procedure Neuro Vascular Exam: normal Post-Procedure Neuro Vascular Exam: normal Other Orthopedic Equipment: crutches MDM - Extremity Injury (Lower) MDM Narrative Medical decision making narrative: MEDICAL DECISION MAKING AND COURSE IN THE ED WITH INTERPRETATION/REVIEW OF DIAGNOSTIC STUDIES: Electronic medical record was reviewed. This patient was seen by myself. Patient presented to the ED with complaint of [left foot pain after missing a step]. Vitals [were within acceptable limits]. Physical exam revealed tenderness at [left foot and ankle]. Based on the patient's history and physical exam, I am concerned for fracture vs sprain. Patient was given Toradol for pain. Ankle and foot xrays were obtained showing no obvious fracture to the ankle, there is a 5th metatarsal avulsion fracture on the foot x-ray on my independent interpretation. Posterior short-leg splint applied to injured extremity. Patient given strict return precautions if pain is worse or there is poor bloo
[2024-02-02] MEDS: KETOROLAC 30 MG/ML VIAL (*BKC) 15 MG IM (18:46)
== END 2024-02-02 18:50 | disposition home or self-care (01) ==
PROVIDERS: Emergency Provider Emergency Medicine
DX: S92.355A Nondisplaced fracture of fifth metatarsal bone, left foot, initial encounter for closed fracture (principal); J45.909 Unspecified asthma, uncomplicated; W10.9XXA Fall (on) (from) unspecified stairs and steps, initial encounter
CPT/HCPCS: 29515; 73610; 73630; 95864; 96372; 99284; J1885

== ENCOUNTER 2024-06-26 09:52 | Emergency (ER) | payer OTHER, SELFPAY ==
[2024-06-26 10:05] VITALS: BP 126/74; PULSE 61; RESP 18; TEMP 36.4; O2SAT 98
--- NOTE | 2024-06-26 10:08 | ED.ABDPAIN ---
HPI - Abdominal Pain General Chief Complaint: Abdominal Pain Stated Complaint: L abd pain Time Seen by Provider: 06/26/24 10:01 Source: patient Mode of arrival: ambulatory Limitations: no limitations History of Present Illness HPI narrative: This is a 24 year old female that presents to the ER for left flank pain. Ongoing since this morning. Associated with nausea and vomiting. Denies fever, dysuria, hematuria. Related Data Home Medications ?Medication ?Instructions ?Recorded ?Confirmed ?Last Taken ?Type albuterol sulfate 90 mcg/actuation 2 puff inhalation PRN PRN 09/08/20 11/16/20 Unknown History aerosol inhaler Shortness Of Breath fluticasone propionate 44 See Rx Instructions .Route .COMPLEX 09/08/20 11/16/20 09/08/20 09:00 History mcg/actuation HFA aerosol inhaler (Flovent HFA) Allergies Allergy/AdvReac Type Severity Reaction Status Date / Time latex Allergy Mild Rash Verified 06/26/24 09:53 Review of Systems Review of Systems: CONSTITUTIONAL: Denies fever GASTROINTESTINAL: Reports abdominal pain, nausea, vomiting GENITOURINARY: Denies dysuria or hematuria. All systems reviewed & are unremarkable except as noted in HPI and below PMFSH Past Medical History Medical History Asthma (normal spontaneous vaginal delivery) Surgical History Surgical History No pertinent past surgical history Social History Social History Smoking status: Never smoker Second hand tobacco smoke exposure: No Substance use: never Gender identity (if verbalized by the patient): Female Spiritual care concerns: No Exam Narrative: GENERAL: Uncomfortable, well-nourished, and in no acute distress. HEAD: Normocephalic, atraumatic. EYES: EOMI. CHEST: Clear to auscultation. No respiratory distress. No wheezes rales or rhonchi HEART: Regular rate and rhythm. No murmur heard. Normal peripheral pulses. ABDOMEN: Soft, nontender, nondistended, normal active bowel sounds. EXTREMITIES: Normal range of motion. No edema. SKIN: Warm, dry, no rash. NEURO: No focal deficits. Alert and oriented x3. PSYCH: Normal mood and affect Course Course Emergency Course: Patient updated on her workup and agrees with plan of care Vital Signs Vital signs: Vital Signs Temperature 97.5 F L 06/26/24 10:05 Pulse Rate 61 06/26/24 10:05 Respiratory Rate 18 06/26/24 10:05 Blood Pressure 126/74 06/26/24 10:05 Pulse Oximetry 98 06/26/24 10:05 Oxygen Delivery Room Air 06/26/24 10:05 Temperature 97.5 F L 06/26/24 10:05 Pulse Rate 80 06/26/24 14:12 Respiratory Rate 16 06/26/24 14:12 Blood Pressure 114/70 06/26/24 14:12 Pulse Oximetry 100 06/26/24 14:12 Oxygen Delivery Room Air 06/26/24 10:05 MDM - Abdominal Pain MDM Narrative Medical decision making narrative: Patient presents emergency department for left flank pain. She is afebrile and nontoxic appearing. Her vitals are stable. Cbc without leukocytosis. Metabolic panel with normal kidney function. Urine without evidence of infection. Does show red blood cells. CT abdomen and pelvis shows a 4 mm distal left ureteral stone. Patient updated on her workup and agrees with plan of care. Will be started on Flomax and given follow-up with Urology. She was given warnings to return to the ER Differential Diagnosis Differential diagnosis: Likely calculus of kidney and other (UTI) Lab Data Attestation: I reviewed the patient's lab results. 06/26/24 10:19 06/26/24 10:19 Labs: Lab Results 06/26/24 06/26/24 06/26/24 Range/Units 10:07 10:10 10:19 WBC 7.2 (4.5-10.0) K/mm3 RBC 4.75 (4.2-5.4) M/mm3 Hgb 13.9 D (12.0-15.0) g/dL Hct 41.8 (37.0-47.0) % MCV 88.0 (80-100) fl MCH 29.3 (26-34) pg MCHC 33.3 (32-36) g/dl RDW 13.0 (11.5-14.5) % Plt Count 338 (150-375) k/mm3 MPV 10.6 H (7.4-10.4) fl Immature Gran % (Auto) 0.4 (0-0.5) % Neut % (Auto) 60.6 (45.5-73.1) % Lymph % (Auto) 29.0 (18.3-44.2) % [place] % (Auto) 5.4 (2.6-8.5) % Eos % (Auto) 3.9 (0-4.4) % Baso % (Auto) 0.7 (0.2-1.2) % Lymph # (Auto) 2.10 (0.9-3.2) K/mm3 [place] # (Auto) 0.4 (0.1-0.6) K/mm3 Eos # (Auto) 0.3 (0-0.3) K/mm3 Baso # (Auto) 0.1 (0.0-0.1) K/mm3 Abs Immat Gran (auto) 0.03 (0.00-0.031) K/mm3 Absolute Neuts (auto) 4.4 (1.3-6.7) K/mm3 Absolute Nucleated RBC 0.000 (0.0-0.012) K/mm3 Nucleated RBC % 0.0 (0.0-0.2) % Sodium 142 (137-145) mmol/L Potassium 3.6 (3.4-5.0) mmol/L Chloride 110 H (98-107) mmol/L Carbon Dioxide 19 L (22-30) mmol/L Anion Gap 13 H (4-12) mmol/L BUN 8 (7-17) mg/dL Creatinine 0.65 L (0.7-1.0) mg/dL Estim Creat Clear Calc 139 ml/min Estimated GFR > 60 (59 - ) Glucose 128 H (65-110) mg/dL Calcium 9.3 (8.4-10.2) mg/dL Total Bilirubin 0.7 (0.2-1.3) mg/dL AST 20 (14-36) U/L ALT 21 (6-35) U/L Alkaline Phosphatase 88 (38-126) U/L Total Protein 8.0 (6.3-8.2) g/dL Albumin 4.5 (3.5-5.1) g/dL Lipase 48 (23-300) U/L Urine Color Yellow (Yellow) Urine Appearance Turbid H (Clear) Urine pH 5.0 (5.0-9.0) Ur Specific [place] 1.027 (1.001-1.035) Urine Protein 1+ H (Negative) mg/dL Urine Glucose (UA) Negative (Negative) mg/dL Urine Ketones Trace H (Negative) mg/dL Ur Blood (Man) 3+ H (Negative) Urine Nitrate Negative (Negative) Urine Bilirubin Negative (Negative) Urine Urobilinogen 1.0 (<2.0) mg/dL Add Ur Microanalysis Reviewed Leukocyte Esterase Rfl Negative (Negative) NADER/UL Urine RBC 51-100 H (0-2) /hpf Urine WBC 0-5 (0-3) /hpf Ur Squamous Epith Cells Many H (Few) /hpf Urine Bacteria None seen /hpf Urine Casts 6-10 Urine Mucus Present /lpf POC Urine HCG, Qual Negative (Negative) Imaging Data Radiologist's impression: ITS Impressions Abdomen/Pelvis CT 06/26/24 11:00 IMPRESSION: Left-sided hydroureteronephrosis secondary to a 4 mm stone in the distal left ureter at the level of the left ureterovesicular junction. Nonobstructing calculus within the interpolar region of the right kidney. Borderline hepatosplenomegaly. Abdomen X-Ray 06/26/24 12:54 Impression: 1: Left pelvic calcification which may correspond to a distal ureteral stone or phlebolith. 2: Right nephrolithiasis. Critical Care Time Critical Care Time Critical Care Time: No Discharge Plan Discharge Clinical Impression: Kidney stone Patient Disposition: Home, Self-Care Condition: Stable Instructions: Kidney Stones (ED), How to Strain Your Urine (ED) Additional Instructions: Return to the emergency department if you experience fever, chest pain, shortness of breath, abdominal pain with nausea and vomiting, pain or burning with urination, blood in urine, or any other symptoms that are concerning to you. Remain well hydrated. Strain your urine. [id number] pain medication as needed. Prescribed pain medication as needed Follow up with Urology Patient Language: Fijian Prescriptions: New oxycodone-acetaminophen [Percocet] 5-325 mg tablet 1 tablet PO Q6H PRN (Reason: pain) Qty: 14 0RF tamsulosin 0.4 mg capsule 0.4 mg PO DAILY 7 Days Qty: 7 0RF No Action fluticasone propionate [Flovent HFA] 44 mcg/actuation HFA aerosol inhaler See Rx Instructions .ROUTE .COMPLEX Rx Instructions: 1 puff daily albuterol sulfate 90 mcg/actuation HFA aerosol inhaler 2 puff INHALATION PRN PRN (Reason: Shortness Of Breath) albuterol sulfate 90 mcg/actuation HFA aerosol inhaler 1 inh inhalation QID PRN (Reason: shortness of breath or wheezing) Qty: 6.7 0RF acetaminophen [Tylenol Extra Strength] 500 mg tablet 1,000 mg PO Q6H PRN (Reason: pain) Qty: 50 0RF ibuprofen 600 mg tablet 600 mg PO TID PRN (Reason: fever or pain) Qty: 30 0RF fluticasone propionate [Flonase Allergy Relief] 50 mcg/actuation spray,suspension 1 spray intranasal BID Qty: 16 0RF Rx Instructions: administer into each nostril Follow-up/Referrals: PHYSICIAN,HOP FARMER [Non-Staff] - Ted Giles MD [Physician] -
[2024-06-26 10:09] LABS: BEDSIDEPREGUCG Negative (Negative)
[2024-06-26] MEDS: MORPHINE SULFATE (*CRX) 4 MG/ML INJ IV PUSH (10:18)
[2024-06-26] MEDS: SODIUM CHLORIDE 0.9% IV 1,000 ML 999 ML IV CONT ×2 (10:18→11:26)
[2024-06-26] MEDS: ONDANSETRON INJ 4 MG/2 ML VIAL IV PUSH (10:18)
[2024-06-26 10:31] LABS: Basophils Absolute Auto 0.1 K/mm3 (0.0-0.1); Basophils Percent Auto 0.7 % (0.2-1.2); Eosinophils Absolute Auto 0.3 K/mm3 (0-0.3); Eosinophils Percent Auto 3.9 % (0-4.4); Hematocrit 41.8 % (37.0-47.0); Hemoglobin 13.9 g/dL (12.0-15.0); Immature Granulocyte Absolute 0.03 K/mm3 (0.00-0.031); Immature Granulocyte Percent A 0.4 % (0-0.5); Mean Corpuscular HGB Conc 33.3 g/dl (32-36); Mean Corpuscular Hemoglobin 29.3 pg (26-34); Mean Platelet Volume 10.6 fl (7.4-10.4); Monocytes Absolute Auto 0.4 K/mm3 (0.1-0.6); Monocytes Percent Auto 5.4 % (2.6-8.5); Neutrophils Absolute Auto 4.4 K/mm3 (1.3-6.7); Neutrophils Percent Auto 60.6 % (45.5-73.1); Platelet Count Result 338 k/mm3 (150-375); Red Blood Count 4.75 M/mm3 (4.2-5.4); White Blood Count 7.2 K/mm3 (4.5-10.0)
[2024-06-26 10:41] LABS: Alanine Aminotransferase 21 U/L (6-35); Albumin Level 4.5 g/dL (3.5-5.1); Alkaline Phosphatase 88 U/L (38-126); Anion Gap 13 mmol/L (4-12); Aspartate Amino Transferase 20 U/L (14-36); Bilirubin,Total 0.7 mg/dL (0.2-1.3); Blood Urea Nitrogen 8 mg/dL (7-17); Calcium 9.3 mg/dL (8.4-10.2); Carbon Dioxide 19 mmol/L (22-30); Chloride 110 mmol/L (98-107); Estimated CRCL calculation 139 ml/min; Estimated Glomerular Filt Rate > 60; Glucose 128 mg/dL (65-110); Lipase 48 U/L (23-300); Potassium 3.6 mmol/L (3.4-5.0); Sodium 142 mmol/L (137-145)
[2024-06-26 10:44] LABS: Add Urine Microscopic? YES; Appearance Urine Turbid (Clear); Bacteria Urine None Seen /hpf; Bilirubin Urine Negative (Negative); Blood Urine 3+ (Negative); Color Urine Yellow (Yellow); Glucose Urine UA Negative (Negative); Ketones Urine Trace mg/dL (Negative); Leukocyte Esterase Ur Negative LEU/UL (Negative); Mucus Urine Present /lpf; Need Manual Microscopic Reviewed; Nitrate Urine Negative (Negative); Protein Urine 1+ mg/dL (Negative); RBC Urine 51-100 /hpf (0-2); Specific Grav Ur 1.027 (1.001-1.035); Squamous Epithelial Cell Urine Many /hpf (Few); WBC Urine 0-5 /hpf (0-3)
[2024-06-26] MEDS: KETOROLAC 15 MG/ML VIAL (*BKC) IV PUSH (11:26)
[2024-06-26 11:57] VITALS: BP 120/81; PULSE 76; RESP 18; O2SAT 100
[2024-06-26 13:00] VITALS: BP 115/74; PULSE 76; RESP 16; O2SAT 100
[2024-06-26] MEDS: HYDROmorphone HCL INJ (*CRX) 1 MG/ML SYR 0.5 MG IV PUSH (13:15)
[2024-06-26 14:12] VITALS: BP 114/70; PULSE 80; RESP 16; O2SAT 100
[2024-06-26] MEDS: oxyCODONE HCL (*CRX) 5 MG TAB IR PO (15:10)
[2024-06-26 15:30] VITALS: BP 92/80; PULSE 99; RESP 16; TEMP 36.4; O2SAT 100
== END 2024-06-26 15:34 | disposition home or self-care (01) ==
PROVIDERS: Emergency Provider Physician Assistant
DX: N13.2 Hydronephrosis with renal and ureteral calculous obstruction (principal); J45.909 Unspecified asthma, uncomplicated
CPT/HCPCS: 36415; 74018; 74176; 80053; 81001; 81025; 83690; 85025; 96361; 96374; 96375; 99284; A9270; J1171; J1885; J2270; J2405; J7030

== ENCOUNTER 2024-09-11 16:45 | Emergency (ER) | payer OTHER, SELFPAY ==
--- NOTE | ~2024-09-11 | XR_ITS ---
EXAMINATION: XR ankle RT min 3V DATE: 09/11/2024 17:27 INDICATION: Right ankle injury TECHNIQUE: Anteroposterior, oblique, mortise, and lateral views of the right ankle were obtained. COMPARISON: None. FINDINGS: Alignment is normal. No fracture. Joint spaces are normal. Prominent soft tissue swelling about the l ateral malleolus. No ankle joint effusion. IMPRESSION: 1. No right ankle joint effusion or osseous abnormality. Reviewed, dictated and finalized at location A.
--- OUTSIDE RECORDS SUMMARY | 2024-09-11 16:47 | XMS_ITS | Patient Health Record ---
Author Organization [facility] Address [address] [place] [address] Care Team Providers Care Top Taper Machine Name Role Phone Vel Castro Primary Care Provider Lizzeth Simon Unavailable [phone] Areli Bradley Unavailable [phone] Allergies No Known Allergies Results Component Value Reference Range Notes RPR w/reflex to TrepSure Reviewed date:07/22/2024 10:51:06 AM Interpretation: Performing Lab:[facility] [place], [address] [facility], Phone - [phone], Director - Aminta Notes/Report: RPR Non Reactive Non Reactive Treponemal Antibodies, TPPA Reactive Non Reactive Interpretation: Syphilis: Treponemal Antibodies with Reflex to RPR and RPR Titer, Reverse Screening and Diagnosis Algorithm Treponemal Treponemal Ab RPR, Qn Ab, TPPA Final Interpretation -------- Non N/A N/A No laboratory evidence Reactive of syphilis. Retest in 2-4 weeks if recent exposure is suspected. -------- Reactive Non Non Treponemal antibodies Reactive Reactive not confirmed. Inconclusive for syphilis; potential early syphilis, possible false positive. Retest in 2-4 weeks if recent exposure is suspected. -------- Reactive Non Reactive Treponemal antibodies Reactive detected. Consistent with past or current (potential early) syphilis. -------- Reactive >/=1:1 N/A Treponemal and nontreponemal antibodies detected. Consistent with current or past syphilis. This test is intended ONLY for specimens that have tested positive (reactive) or equivocal for Treponema pallidum antibodies prior to submission for testing. For the full CDC-recommended syphilis screening and diagnosis algorithm, [facility] offers test code 537968 RPR, Rfx Qn RPR/Confirm TP or 461563 T pallidum Screening [place]. CMP 14 Comprehensive Metabol ic Panel* Reviewed date:07/22/2024 10:52:18 AM Interpretation: Performing Lab:[facility], [address] [place] [address], Phone - [phone], Director - Aminta Notes/Report: Glucose 80 70-99 mg/dL BUN 10 6-20 mg/dL Creatinine 0.69 0.57-1.00 mg/dL eGFR 125 >59 mL/min/1.73 BUN/Creatinine Ratio 14 9-23 Sodium 141 134-144 mmol/L Potassium 4.4 3.5-5.2 mmol/L Chloride 105 96-106 mmol/L Carbon Dioxide, Total TNP Test not performed. Due to a lack of reproducibility with this patient sample, a valid result could not be obtained. Calcium 9.8 8.7-10.2 mg/dL Protein, Total 7.1 6.0-8.5 g/dL Albumin 4.7 4.0-5.0 g/dL Globulin, Total 2.4 1.5-4.5 g/dL Bilirubin, Total 0.3 0.0-1.2 mg/dL Alkaline Phosphatase 118 44-121 IU/L AST (SGOT) 17 0-40 IU/L ALT (SGPT) 17 0-32 IU/L Lipid Panel* Reviewed date:07/22/2024 10:51:16 AM Interpretation: Performing Lab:[facility] [address] [place] [address], Phone - [phone], Director - [facility] Notes/Report: Cholesterol, Total 152 100-199 mg/dL Triglycerides 102 0-149 mg/dL HDL Cholesterol 46 >39 mg/dL VLDL Cholesterol Riley 19 5-40 mg/dL LDL Chol Calc (NIH) 87 0-99 mg/dL TSH+Free T4* Reviewed date:07/22/2024 10:50:31 AM Interpretation: Performing Lab:[facility] [address] [place] [address], Phone - [phone], Director - [facility] Notes/Report: TSH 2.770 0.450-4.500 uIU/mL T4,Free(Direct) 1.36 0.82-1.77 ng/dL Hepatitis C Virus Antibody w /Rflx to Quantitative Real-time PCR (132073) Reviewed date:07/22/2024 10:51:38 AM Interpretation: Performing Lab:[facility] [address] [place] [address], Phone - [phone], Director - [facility] Notes/Report: HCV Ab Non Reactive Non Reactive Interpretation: Not infected with HCV unless early or acute infection is suspected (which may be delayed in an immunocompromised individual), or other evidence exists to indicate HCV infection. Vitamin D, 25-Hydroxy* Reviewed date:07/22/2024 10:50:15 AM Interpretation: Performing Lab:[facility] [address] [place] [address], Phone - [phone], Director - [facility] Notes/Report: Vitamin D, 25-Hydroxy 21.3 30.0-100.0 ng/mL Vitamin D deficiency has been defined by the [place] of [employer] and an Endocrine Society practice guideline as a level of serum 25-OH vitamin D less than 20 ng/mL (1,2). The Endocrine Society went on to further define vitamin D insufficiency as a level between 21 and 29 ng/mL (2). 1. IOM ([place] of [employer]). 2010. Dietary reference intakes for calcium and D. [place]: The National Academies Press. 2. Sandor MF, Phillip GONZALES, Nikky MACIAS, et al. Evaluation, treatment, and prevention of vitamin D deficiency: an Endocrine Society clinical practice guideline. JCEM. 2010; 96(7):1911-30. Hepatitis B Surface Antigen (HBsAg Screen) Reviewed date:07/22/2024 10:51:49 AM Interpretation: Performing Lab:[facility] [address], Phone - [phone], Director - [facility] Notes/Report: HBsAg Screen Negative Negative CBC With Differential/Platel et* Reviewed date:07/22/2024 10:52:31 AM Interpretation: Performing Lab:[facility] [place], [address] [place] [address], Phone - [phone], Director - [facility] Notes/Report: WBC 6.0 3.4-10.8 x10E3/uL RBC 4.67 3.77-5.28 x10E6/uL Hemoglobin 13.6 11.1-15.9 g/dL Hematocrit 42.6 34.0-46.6 % MCV 91 79-97 fL MCH 29.1 26.6-33.0 pg MCHC 31.9 31.5-35.7 g/dL RDW 13.5 11.7-15.4 % Platelets 319 150-450 x10E3/uL Neutrophils 60 Not Estab. % Lymphs 29 Not Estab. % Monocytes 6 Not Estab. % Eos 4 Not Estab. % Basos 1 Not Estab. % Neutrophils (Absolute) 3.6 1.4-7.0 x10E3/uL Lymphs (Absolute) 1.7 0.7-3.1 x10E3/uL Monocytes(Absolute) 0.4 0.1-0.9 x10E3/uL Eos (Absolute) 0.2 0.0-0.4 x10E3/uL Baso (Absolute) 0.1 0.0-0.2 x10E3/uL Immature Granulocytes 0 Not Estab. % Immature Grans (Abs) 0.0 0.0-0.1 x10E3/uL Folate (Folic Acid), Serum* Reviewed date:07/22/2024 10:52:05 AM Interpretation: Performing Lab:[address], Phone - [phone], Director - [facility] Notes/Report: Folate (Folic Acid), Serum 9.8 >3.0 ng/mL A serum folate concentration of less than 3.1 ng/mL is considered to represent clinical deficiency. Vitamin B12* Reviewed date:07/22/2024 10:50:23 AM Interpretation: Performing Lab:[address], Phone - [phone], Director - [facility] Notes/Report: Vitamin B12 692 220-3897 pg/mL Hemoglobin A1c* Reviewed date:07/22/2024 10:51:57 AM Interpretation: Performing Lab:[address], Phone - [phone], Director - [facility] Notes/Report: Hemoglobin A1c 5.5 4.8-5.6 % . Prediabetes: 5.7 - 6.4 Diabetes: >6.4 Glycemic control for adults with diabetes: <7.0 HIV Screen *HIV 1, 2 Ab, p24 Ag (747250) Reviewed date:07/22/2024 10:51:27 AM Interpretation: Performing Lab:[address], Phone - [phone], Director - [facility] Notes/Report: HIV Ab/p24 Ag Screen Non Reactive Non Reactive HIV-1/HIV-2 antibodies and HIV-1 p24 antigen were NOT detected. There is no laboratory evidence of HIV infection. HIV Negative Comprehensive Drug Analysis, Urine Reviewed date:03/12/2024 04:49:47 PM Interpretation: Performing Lab:[facility], [address] [facility], Phone - [phone], Director - Yosi Notes/Report: ToxAssure, [facility] FLEX or MAT drug testing: Technical Component - Data Analysis performed at [facility], [address] [place] [address], [phone] . Vp Cardiovascular Service Line Marcela Mcmahon MD Summary Report (Summary) FINAL ======== COMPREHENSIVE DRUG ANALYSIS,UR ======== Test Result Flag Units Drug Present Carboxy-THC 22 ng/mg creat Carboxy-THC is a metabolite of tetrahydrocannabinol (THC). Source of THC is most commonly herbal marijuana or marijuana-based products, but THC is also present in a scheduled prescription medication. Trace amounts of THC can be present in hemp and cannabidiol (CBD) products. This test is not intended to distinguish between noein-1-flihlyozywuffqrkqmht, the predominant form of THC in most herbal or marijuana-based products, and cmite-6-uxtnsjdprnwvcyyavrzs. Fluoxetine PRESENT Norfluoxetine PRESENT Norfluoxetine is an expected metabolite of fluoxetine. Acetaminophen PRESENT Doxylamine PRESENT Dextromethorphan PRESENT Dextrorphan/Levorphanol PRESENT Dextrorphan is an expected metabolite of dextromethorphan, an enns-lek-wfyjkvj or prescription cough suppressant. Dextrorphan cannot be distinguished from the scheduled prescription medication levorphanol by the method used for analysis. Guaifenesin PRESENT Guaifenesin may be administered as an xdem-sgt-rlrocvu or prescription drug; it may also be present as a breakdown product of methocarbamol. Propranolol PRESENT ======== Test Result Flag Units Ref Range Creatinine 131 mg/dL >=20 ======== For clinical consultation, please call . ======== PDF . PDF Report Reviewed date:03/12/2024 04:50:06 PM Interpretation: Performing Lab:[facility], [address] [place] [address], Phone - [phone], Director - Yosi Notes/Report: ToxAssure, T[facility]Assure FLEX or MAT drug testing: Technical Component - [facility], [address] [place] [address], [phone] . Vp Cardiovascular Service Line Marcela Mcmahon MD PDF Report1 LS Aripiprazole Reviewed date:07/22/2024 10:49:55 AM Interpretation: Performing Lab[facility], [address] [place] [address], Phone - [phone], Director - Aminta Notes/Report: Aripiprazole 55.6 Expected steady state plasma levels in patients receiving recommended daily dosages: 109.0-585.0 ng/mL This test was developed and its performance characteristics determined by [facility]. It has not been cleared or approved by the Food and Drug Administration. Fluoxetine (Prozac), Serum Reviewed date:07/17/2024 11:56:37 AM Interpretation: Performing Lab: Notes/Report: Reason For Referral No Information Medications Medication SIG (Take, Route, Frequency, Duration) Notes Start Date End Date Status Ergocalciferol 1.25 MG (71655 UT) 1 capsule Orally once weekly for 30 days 07/22/2024 Active Albuterol Sulfate HFA 108 (90 Base) MCG/ACT 1 puff as needed Inhalation every 4 hrs Active Propranolol HCl ER 60 MG 1 capsule Orall y Once a day for 30 days Active ARIPiprazole 10 MG 1 tablet once daily Orally for 30 days Active QUEtiapine Fumarate 25 MG 0.5-1 tablet o nce nightly at bedtime as needed for sleep Orally for 30 days Active hydrOXYzine HCl 50 MG 1 tablet Orally up to 3 times daily for 30 days As needed for anxiety/sleep Active Naltrexone HCl 50 MG 1 tablet Orally Onc e a day Active Advair Diskus 250-50 MCG/ACT 1 puff Inha lation Twice a day Active buPROPion HCl ER (XL) 150 MG 1 tablet in the morning Orally Once a day Active FLUoxetine HCl 40 MG 1 capsule Orally On ce a day for 30 days Active Immunizations Vaccine Route Administration Date Status Comme nts Influenza, virus vaccine, trivalent, preservative free IM Intramuscular 03/28/2024 Administered Senait Platasusan Polk 03/28/2024 09:38:11 AM 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 > Social History Tobacco Use: Social History Observation Description Date Details (start date - stop date) Never Smoker NA - NA Sex Assigned At : Social History Observation Description Sex Assigned At Female Tobacco Control (Standard) Question Answer Notes Tobacco use: Nonsmoker Problems Problem Type SNOMED Code ICD Code Onset Dates Problem Status W/U Status Risk Notes Problem Bipolar II disorder (24007623) Bipolar II disorder (F31.81) Active confirmed Problem Depression (290683155) Depression (F32.9) Active confirmed Problem Anxiety (44238949) Anxiety (F41.9) Active confirmed Problem Vitamin D deficiency (11864781) Vitamin D deficiency (E55.9) Active confirmed Problem Asthma (805542274) Asthma (J45.909) Active confirmed Problem Overweight (607601684) Over weight (E66.3) Active confirmed Problem H/O intravenous drug use in remission (Z87.898) Active confirmed Vital Signs Heart Rate 84 /min 06/20/2024 Temperature 98.2 degrees Fahrenheit 06/20/2024 Respiratory Rate 16 /min 06/20/2024 Blood pressure diastolic 78 mm Hg 06/20/2024 Oximetry 97 % 06/20/2024 Height 65 in 08/22/2024 Blood pressure systolic 124 mm Hg 06/20/2024 Weight 242 lbs 08/22/2024 BMI 40.27 kg/m2 08/22/2024 Encounters Encounter Location Date Provider Diagnosis [address] [place] [address] 12/17/2023 Areli Bradley Therapeutic drug monitoring Z51.[address] [address] 01/28/2024 Vel Castro [address] [address] 07/09/2024 Velолег Castro Bipolar II disorder F31.81 ; Anxiety F41.9 ; Depression F32.9 ; Asthma J45.909 ; H/O intravenous drug use in remission Z87.898 ; Encounter for immunization Z23 ; Nutritional counseling Z71.3 and Therapeutic drug monitoring Z51.[address] [address] 11/14/2023 Arelidarian Bradley Nutritional counseling Z71.3 ; Depression F32.9 and Anxiety F41.[address] [address] 01/09/2024 Arelidarian Bradley Depression F32.9 and Anxiety F41.[address] [address] 02/26/2024 Velолег Castro Anxiety F41.9 ; Bipolar II disorder F31.81 ; Depression F32.9 ; Asthma J45.909 and H/O intravenous drug use in remission Z87.[address] [address] 03/28/2024 Velолег Castro Bipolar II disorder F31.81 ; Anxiety F41.9 ; Depression F32.9 ; Asthma J45.909 ; H/O intravenous drug use in remission Z87.898 ; Encounter for immunization Z23 and Nutritional counseling Z71.[address] [address] 05/16/2024 Velолег Auer Bipolar II disorder F31.81 ; Anxiety F41.9 ; Depression F32.9 ; Asthma J45.909 ; H/O intravenous drug use in remission Z87.898 ; Encounter for immunization Z23 and Nutritional counseling Z71.[address] [address] 06/20/2024 Vel Castro Bipolar II disorder F31.81 ; Anxiety F41.9 ; Depression F32.9 ; Asthma J45.909 ; H/O intravenous drug use in remission Z87.898 ; Encounter for immunization Z23 and Nutritional counseling Z71.[address] [place] [address] 08/22/2024 Vel Castro Bipolar II disorder F31.81 ; Anxiety F41.9 ; Depression F32.9 ; Asthma J45.909 ; H/O intravenous drug use in remission Z87.898 ; Nutritional counseling Z71.3 and Over weight E66.[address] [facility] [facility] [place] [address] 10/08/2023 Areli Kirk [address] [address] 10/25/[address] [place] [address] 11/14/2023 Areli Kirk [address] [address] 12/12/2023 Areli Bradley Therapeutic drug monitoring Z51.81 [facility] [address] [place] [address] 01/18/[address] [facility] [place] [address] 02/19/[address] [place] [address] 02/26/[address] [place] [address] 02/26/[address] [place] [address] 03/29/[address] [facility] [place] [address] 03/31/[address] [place] [address] 03/31/2024 Vel Castro [facility] [address] [place] [address] 06/24/2024 Vel Castro Therapeutic drug monitoring Z51.81 ; Bipolar II disorder F31.81 ; Anxiety F41.9 and Depression F32.[address] [place] [address] 07/17/2024 Vel Castro Vitamin D deficiency E55.[address] [place] [address] 07/22/2024 Vel Castro Vitamin D deficiency E55.[address] [address] 07/25/[address] [place] [address] 08/01/2024 Vel Castro [address] [address] 08/15/2024 Vel Castro [facility] [address] [place] [address] 09/08/[address] [place] [address] 11/07/[address] [place] [address] 11/07/2023 Areli Bradley Depression F32.9 and Anxiety F41.[address] [place] [address] 02/19/2024 Vel Castro Depression F32.9 and Anxiety F41.9 Assessments Encounter Date Diagnosis (ICD Code) Assessment Notes Treatment Notes Treatment Clinical Notes Section Notes 11/07/2023 Depression (ICD-10 - F32.9) 11/14/2023 Nutritional counseling (ICD-10 - Z71.3) 12/12/2023 Therapeutic drug monitoring (ICD-10 - Z51.81) 12/17/2023 Therapeutic drug monitoring (ICD-10 - Z51.81) 01/09/2024 Depression (ICD-10 - F32.9) PHQ-9 score is 14 today, was 1 at last visit; Pt reports that her depression has increased since giving to her twin sons last month. Pt has been tolerating medication well. Pt denies SI/HI at this time. Will cont to monitor moods and monitor for mood disorder. DD: PTSD, Bipolar Disorder. 02/19/2024 Depression (ICD-10 - F32.9) 02/26/2024 Bipolar II disorder (ICD-10 - F31.81) Duration (acute/chronic), stability (controlled/uncontrol led): Chronic, uncontrolled Current medications/efficacy: Somewhat, room for improvement Previous medication trials: sertraline Current/previous therapies: Follows up with therapy regularly Examination as documented - see pertinent aspects of office visit documentation. Pertinent diagnostics: LABS ORDERED TODAY - PATIENT TO FOLLOW UP FOR LAB VISIT Differential diagnoses: RECOMMENDATIONS: START lamotrigine as prescribed to assist with mood/stability - educated patient/guardian on adverse effects, risks and benefits, as well as alternative treatments INCREASE fluoxetine as prescribed - educated patient/guardian on adverse effects, risks and benefits, as well as alternative treatments INCREASE hydroxyzine as prescribed - educated patient/guardian on adverse effects, risks and benefits, as well as alternative treatments Continue/modify other medications as prescribed - educated patient/guardian on adverse effects, risks and benefits, as well as alternative treatments Consume well balanced diet, preferably low in saturated fats (solid at room temperature, such as butter, margarine, Crisco, etc) and low in sodium (<2,000mg per day). Consume plenty of fruits/vegetables, healthy grains/whole grains, unsaturated/healthy fats (liquid at room temperature, such as olive oil, sunflower seed oil, canola, vegetable, etc.). Exercise regularly - Develop an exercise routine. 30 minutes of moderate exercise (walking at a brisk pace) 5 times per week is recommended. You should work hard enough to cause a sweat but still be able to talk with others while exercising. Exercise improves overall health - improves blood pressure and blood sugar, helps control weight, reduces stress, and improves mood. Practice stress reduction techniques, such as guided imagery, journaling, aromatherapy, acupuncture/acupressu re, deep breathing, etc. Practice healthy sleep hygiene - maintain regular routine, no caffeine after 1PM, no exercise 1-2 hours prior to bedtime, keep bedroom dark and cool, no TV or electronics while in bed. Consider melatonin as needed. Consider cognitive behavioral therapy for insomnia (CBT-I). Consider/Continue therapy. Consider/Continue substance cessation therapy as needed - contact office if desiring medication assisted therapy. Manage co-morbid conditions. Continue monitoring symptoms - report persistent or worsening/concerning symptoms to the office or go to the ER. For mental health CRISIS, please reach out to [phone] ([employer] Suicide and Crisis Lifeline), 911, go to the emergency department, or contact the [facility] Crisis Unit/Team. Follow up as scheduled in 4 weeks or sooner if necessary. Follow up with PCP and/or other specialists as advised. NEXT STEP: Consider increasing lamotrigine pending response/tolerability . Consider increasing fluoxetine as needed. Consider increasing hydroxyzine as needed. Review labs. 02/26/2024 Anxiety (ICD-10 - F41.9) See assessment and plan for bipolar II disorder 03/28/2024 Bipolar II disorder (ICD-10 - F31.81) Duration (acute/chronic), stability (controlled/uncontrol led): Chronic, improved with recent medication adjustments, still room for improvement, see HPI Current medications/efficacy: Somewhat, room for improvement Previous medication trials: sertraline Current/previous therapies: Follows up with therapy regularly Examination as documented - see pertinent aspects of office visit documentation. Pertinent diagnostics: LABS ORDERED DURING PREVIOUS VISIT - PATIENT AGREEABLE TO COLLECTION AT NEXT FOLLOW UP APPOINTMENT Differential diagnoses: RECOMMENDATIONS: INCREASE lamotrigine as prescribed to assist with mood/stability, take in the evening to assist with sleep as this medication makes patient sleepy - educated patient/guardian on adverse effects, risks and benefits, as well as alternative treatments START propranolol as prescribed - educated patient/guardian on adverse effects, risks and benefits, as well as alternative treatments CONTINUE hydroxyzine as prescribed, take 50mg at bedtime to assist with sleep - educated patient/guardian on adverse effects, risks and benefits, as well as alternative treatments Continue/modify other medications as prescribed - educated patient/guardian on adverse effects, risks and benefits, as well as alternative treatments Consume well balanced diet, preferably low in saturated fats (solid at room temperature, such as butter, margarine, Crisco, etc) and low in sodium (<2,000mg per day). Consume plenty of fruits/vegetables, healthy grains/whole grains, unsaturated/healthy fats (liquid at room temperature, such as olive oil, sunflower seed oil, canola, vegetable, etc.). Exercise regularly - Develop an exercise routine. 30 minutes of moderate exercise (walking at a brisk pace) 5 times per week is recommended. You should work hard enough to cause a sweat but still be able to talk with others while exercising. Exercise improves overall health - improves blood pressure and blood sugar, helps control weight, reduces stress, and improves mood. Practice stress reduction techniques, such as guided imagery, journaling, aromatherapy, acupuncture/acupressu re, deep breathing, etc. Practice healthy sleep hygiene - maintain regular routine, no caffeine after 1PM, no exercise 1-2 hours prior to bedtime, keep bedroom dark and cool, no TV or electronics while in bed. Consider melatonin as needed. Consider cognitive behavioral therapy for insomnia (CBT-I). Consider/Continue therapy. Consider/Continue substance cessation therapy as needed - contact office if desiring medication assisted therapy. Manage co-morbid conditions. Continue monitoring symptoms - report persistent or worsening/concerning symptoms to the office or go to the ER. For mental health CRISIS, please reach out to [phone] (National Suicide and Crisis Lifeline), 911, go to the emergency department, or contact the [facility] Crisis Unit/Team. Follow up as scheduled in 4 weeks or sooner if necessary. Follow up with PCP and/or other specialists as advised. NEXT STEP: Consider increasing lamotrigine pending response/tolerability . Consider increasing fluoxetine as needed. Consider increasing hydroxyzine as needed. Consider increasing propranolol pending response/tolerability . Review labs. 03/28/2024 Anxiety (ICD-10 - F41.9) See assessment and plan for bipolar II disorder 05/16/2024 Bipolar II disorder (ICD-10 - F31.81) Duration (acute/chronic), stability (controlled/uncontrol led): Chronic, increased irritability with recent increase in lamotrigine, see HPI Current medications/efficacy: Somewhat, room for improvement Previous medication trials: sertraline, lamotrigine (irritability), quetiapine (oversedating) Current/previous therapies: Follows up with therapy regularly Examination as documented - see pertinent aspects of office visit documentation. Pertinent diagnostics: LABS ORDERED AGAIN TODAY - PATIENT AGREEABLE TO FOLLOWING UP FOR LAB VISIT Differential diagnoses: RECOMMENDATIONS: STOP lamotrigine and START aripiprazole as prescribed to assist with mood/stability - educated patient/guardian on adverse effects, risks and benefits, as well as alternative treatments START quetiapine as prescribed to assist with sleep - educated patient/guardian on adverse effects, risks and benefits, as well as alternative treatments Continue/modify other medications as prescribed - educated patient/guardian on adverse effects, risks and benefits, as well as alternative treatments Consume well balanced diet, preferably low in saturated fats (solid at room temperature, such as butter, margarine, Crisco, etc) and low in sodium (<2,000mg per day). Consume plenty of fruits/vegetables, healthy grains/whole grains, unsaturated/healthy fats (liquid at room temperature, such as olive oil, sunflower seed oil, canola, vegetable, etc.). Exercise regularly - Develop an exercise routine. 30 minutes of moderate exercise (walking at a brisk pace) 5 times per week is recommended. You should work hard enough to cause a sweat but still be able to talk with others while exercising. Exercise improves overall health - improves blood pressure and blood sugar, helps control weight, reduces stress, and improves mood. Practice stress reduction techniques, such as guided imagery, journaling, aromatherapy, acupuncture/acupressu re, deep breathing, etc. Practice healthy sleep hygiene - maintain regular routine, no caffeine after 1PM, no exercise 1-2 hours prior to bedtime, keep bedroom dark and cool, no TV or electronics while in bed. Consider melatonin as needed. Consider cognitive behavioral therapy for insomnia (CBT-I). Consider/Continue therapy. Consider/Continue substance cessation therapy as needed - contact office if desiring medication assisted therapy. Manage co-morbid conditions. Continue monitoring symptoms - report persistent or worsening/concerning symptoms to the office or go to the ER. For mental health CRISIS, please reach out to [phone] (National Suicide and Crisis Lifeline), 911, go to the emergency department, or contact the [facility] Crisis Unit/Team. Follow up as scheduled in 4 weeks or sooner if necessary. Follow up with PCP and/or other specialists as advised. NEXT STEP: Consider increasing aripiprazole pending response/tolerability . Consider increasing fluoxetine as needed. Consider increasing hydroxyzine as needed. Consider increasing propranolol pending response/tolerability . Review labs. 05/16/2024 Anxiety (ICD-10 - F41.9) See assessment and plan for bipolar II disorder 06/20/2024 Bipolar II disorder (ICD-10 - F31.81) Duration (acute/chronic), stability (controlled/uncontrol led): Chronic, improvements with recent medication adjustments, still some room for improvement, see HPI Current medications/efficacy: Somewhat, room for improvement Previous medication trials: sertraline, lamotrigine (irritability), quetiapine (oversedating) Current/previous therapies: Follows up with therapy regularly Examination as documented - see pertinent aspects of office visit documentation. Pertinent diagnostics: LABS ORDERED PREVIOUSLY - PATIENT AGREEABLE TO FOLLOWING UP FOR LAB VISIT WHEN ABLE. Differential diagnoses: RECOMMENDATIONS: INCREASE aripiprazole as prescribed to assist with mood/stability - educated patient/guardian on adverse effects, risks and benefits, as well as alternative treatments START quetiapine as prescribed to assist with sleep - educated patient/guardian on adverse effects, risks and benefits, as well as alternative treatments SWITCH propranolol to 60mg ER as prescribed to assist with anxiety - educated patient/guardian on adverse effects, risks and benefits, as well as alternative treatments Continue/modify other medications as prescribed - educated patient/guardian on adverse effects, risks and benefits, as well as alternative treatments Consume well balanced diet, preferably low in saturated fats (solid at room temperature, such as butter, margarine, Crisco, etc) and low in sodium (<2,000mg per day). Consume plenty of fruits/vegetables, healthy grains/whole grains, unsaturated/healthy fats (liquid at room temperature, such as olive oil, sunflower seed oil, canola, vegetable, etc.). Exercise regularly - Develop an exercise routine. 30 minutes of moderate exercise (walking at a brisk pace) 5 times per week is recommended. You should work hard enough to cause a sweat but still be able to talk with others while exercising. Exercise improves overall health - improves blood pressure and blood sugar, helps control weight, reduces stress, and improves mood. Practice stress reduction techniques, such as guided imagery, journaling, aromatherapy, acupuncture/acupressu re, deep breathing, etc. Practice healthy sleep hygiene - maintain regular routine, no caffeine after 1PM, no exercise 1-2 hours prior to bedtime, keep bedroom dark and cool, no TV or electronics while in bed. Consider melatonin as needed. Consider cognitive behavioral therapy for insomnia (CBT-I). Consider/Continue therapy. Consider/Continue substance cessation therapy as needed - contact office if desiring medication assisted therapy. Manage co-morbid conditions. Continue monitoring symptoms - report persistent or worsening/concerning symptoms to the office or go to the ER. For mental health CRISIS, please reach out to [phone] ([employer] [place] Suicide and Crisis Lifeline), 911, go to the emergency department, or contact the [facility] Crisis Unit/Team. Follow up as scheduled in 4 weeks or sooner if necessary. Follow up with PCP and/or other specialists as advised. NEXT STEP: Consider increasing aripiprazole pending response/tolerability . Consider increasing fluoxetine as needed. Consider increasing hydroxyzine as needed. Consider increasing propranolol pending response/tolerability . Review labs. 06/24/2024 Bipolar II disorder (ICD-10 - F31.81) 06/24/2024 Therapeutic drug monitoring (ICD-10 - Z51.81) 07/09/2024 Bipolar II disorder (ICD-10 - F31.81) 07/17/2024 Vitamin D deficiency (ICD-10 - E55.9) 07/22/2024 Vitamin D deficiency (ICD-10 - E55.9) 08/22/2024 Bipolar II disorder (ICD-10 - F31.81) Duration (acute/chronic), stability (controlled/uncontrol led): Chronic, noticeable improvements with recent medication adjustments, see HPI Current medications/efficacy: Somewhat, room for improvement Previous medication trials: sertraline, lamotrigine (irritability), quetiapine (oversedating) Current/previous therapies: Follows up with therapy regularly Examination as documented - see pertinent aspects of office visit documentation. Pertinent diagnostics: LABS COMPLETED IN 06/2024, SEE CHART Differential diagnoses: RECOMMENDATIONS: Continue medications as prescribed - educated patient/guardian on adverse effects, risks and benefits, as well as alternative treatments Consume well balanced diet, preferably low in saturated fats (solid at room temperature, such as butter, margarine, Crisco, etc) and low in sodium (<2,000mg per day). Consume plenty of fruits/vegetables, healthy grains/whole grains, unsaturated/healthy fats (liquid at room temperature, such as olive oil, sunflower seed oil, canola, vegetable, etc.). Exercise regularly - Develop an exercise routine. 30 minutes of moderate exercise (walking at a brisk pace) 5 times per week is recommended. You should work hard enough to cause a sweat but still be able to talk with others while exercising. Exercise improves overall health - improves blood pressure and blood sugar, helps control weight, reduces stress, and improves mood. Practice stress reduction techniques, such as guided imagery, journaling, aromatherapy, acupuncture/acupressu re, deep breathing, etc. Practice healthy sleep hygiene - maintain regular routine, no caffeine after 1PM, no exercise 1-2 hours prior to bedtime, keep bedroom dark and cool, no TV or electronics while in bed. Consider melatonin as needed. Consider cognitive behavioral therapy for insomnia (CBT-I). Consider/Continue therapy. Consider/Continue substance cessation therapy as needed - contact office if desiring medication assisted therapy. Manage co-morbid conditions. Continue monitoring symptoms - report persistent or worsening/concerning symptoms to the office or go to the ER. For mental health CRISIS, please reach out to [phone] (National Suicide and Crisis Lifeline), 911, go to the emergency department, or contact the [facility] Crisis Unit/Team. Follow up as scheduled in 4 weeks or sooner if necessary. Follow up with PCP and/or other specialists as advised. NEXT STEP: Consider increasing aripiprazole pending response/tolerability . Consider increasing fluoxetine as needed. Consider increasing hydroxyzine as needed. Consider increasing propranolol pending response/tolerability . Review labs. 08/22/2024 Anxiety (ICD-10 - F41.9) See assessment and plan for bipolar II disorder 08/22/2024 Depression (ICD-10 - F32.9) See assessment and plan for bipolar II disorder 07/09/2024 Anxiety (ICD-10 - F41.9) 06/24/2024 Anxiety (ICD-10 - F41.9) 06/20/2024 Anxiety (ICD-10 - F41.9) See assessment and plan for bipolar II disorder 05/16/2024 Depression (ICD-10 - F32.9) See assessment and plan for bipolar II disorder 03/28/2024 Depression (ICD-10 - F32.9) See assessment and plan for bipolar II disorder 02/26/2024 Depression (ICD-10 - F32.9) See assessment and plan for bipolar II disorder 02/19/2024 Anxiety (ICD-10 - F41.9) 01/09/2024 Anxiety (ICD-10 - F41.9) Will increase hydroxyzine to 25mg PRN to aid anxiety. Pt has been tolerating medication well. Pt is currently seeing a therapist. Will consider starting patient on BuSpar in the future if anxiety does not improve. 11/07/2023 Anxiety (ICD-10 - F41.9) 11/14/2023 Depression (ICD-10 - F32.9) PHQ-9 score is 1 today, was 20 at last visit; Pt reports that her mood are much improved since lat visit. Pt reports that she found out that she was since her last visit and reports that her OBGYn is ok with her taking meds. Will have nursing staff reach out to OBGYN office to ensure her Dr is ok with her continuing. Pt denies SI/HI at this time. Will cont to monitor moods and monitor for mood disorder. DD: PTSD, Bipolar Disorder. Pt is not neding refills at this time. 11/14/2023 Anxiety (ICD-10 - F41.9) Pt reports that his anxiety is much better since starting Hydroxyzine. Will get verification from OBGYN that it is ok to continue med at this time. Pt is currently seeing a therapist. Will consider starting patient on BuSpar in the future if anxiety does not improve. 02/26/2024 Asthma (ICD-10 - J45.909) Duration (acute/chronic), stability (controlled/uncontrol led): Chronic, uncontrolled on albuterol alone - patient doesn't yet have a PCP, agreeable to getting a PCP for management Current medications/efficacy: No Previous medication trials: albuterol PRN Current/previous therapies: N/A Examination as documented - see pertinent aspects of office visit documentation. Pertinent diagnostics: LABS ORDERED TODAY - PATIENT TO FOLLOW UP FOR LAB VISIT Differential diagnoses: RECOMMENDATIONS: START Advair as prescribed - educated patient/guardian on adverse effects, risks and benefits, as well as alternative treatments Continue/modify other medications as prescribed - educated patient/guardian on adverse effects, risks and benefits, as well as alternative treatments Avoid triggers when possible. Consume well balanced diet, preferably low in saturated fats (solid at room temperature, such as butter, margarine, Crisco, etc) and low in sodium (<2,000mg per day). Consume plenty of fruits/vegetables, healthy grains/whole grains, unsaturated/healthy fats (liquid at room temperature, such as olive oil, sunflower seed oil, canola, vegetable, etc.). Exercise regularly - Develop an exercise routine. 30 minutes of moderate exercise (walking at a brisk pace) 5 times per week is recommended. You should work hard enough to cause a sweat but still be able to talk with others while exercising. Exercise improves overall health - improves blood pressure and blood sugar, helps control weight, reduces stress, and improves mood. Practice stress reduction techniques, such as guided imagery, journaling, aromatherapy, acupuncture/acupressu re, deep breathing, etc. Consider/Continue substance cessation therapy as needed - contact office if desiring medication assisted therapy. Manage co-morbid conditions. Continue monitoring symptoms - report persistent or worsening/concerning symptoms to the office or go to the ER. Follow up as scheduled or sooner if necessary. Follow up with PCP and/or other specialists as advised. NEXT STEP: Consider increasing Advair pending tolerability/response as needed if asthma continues to be uncontrolled. 03/28/2024 Asthma (ICD-10 - J45.909) Duration (acute/chronic), stability (controlled/uncontrol led): Chronic, improved since starting Advair as prescribed by this provider, has only required albuterol once over the last month, previously using albuterol once daily - patient doesn't yet have a PCP, agreeable to getting a PCP for management Current medications/efficacy: Yes Previous medication trials: albuterol PRN Current/previous therapies: N/A Examination as documented - see pertinent aspects of office visit documentation. Pertinent diagnostics: LABS ORDERED TODAY - PATIENT TO FOLLOW UP FOR LAB VISIT Differential diagnoses: RECOMMENDATIONS: CONTINUE Advair as prescribed - educated patient/guardian on adverse effects, risks and benefits, as well as alternative treatments Continue/modify other medications as prescribed - educated patient/guardian on adverse effects, risks and benefits, as well as alternative treatments Avoid triggers when possible. Consume well balanced diet, preferably low in saturated fats (solid at room temperature, such as butter, margarine, Crisco, etc) and low in sodium (<2,000mg per day). Consume plenty of fruits/vegetables, healthy grains/whole grains, unsaturated/healthy fats (liquid at room temperature, such as olive oil, sunflower seed oil, canola, vegetable, etc.). Exercise regularly - Develop an exercise routine. 30 minutes of moderate exercise (walking at a brisk pace) 5 times per week is recommended. You should work hard enough to cause a sweat but still be able to talk with others while exercising. Exercise improves overall health - improves blood pressure and blood sugar, helps control [id number]|2024-09-11 18:00:33|2024-09-11 18:00:33|PC.NURSE||||"1749-[employer]INING DONE BY ROBI FORDE"
[2024-09-11 17:12] VITALS: BP 128/67; PULSE 86; RESP 16; TEMP 36.7; O2SAT 98
--- NOTE | 2024-09-11 17:52 | ED_ITS ---
HPI - Extremity Injury (Lower) General Chief Complaint: Extremity Injury, Lower Stated Complaint: Injury to right -fell down stairs Time Seen by Provider: 09/11/24 17:17 History of Present Illness HPI Narrative: Patient presents here after she twisted her ankle walking down the stairs, she has pain with putting weight on the foot. Related Data Home Medications Medication Instructions Recorded Confirmed Last Taken Type albuterol sulfate 90 mcg/actuation 2 puff inhalation PRN PRN 09/08/20 11/16/20 Unknown History aerosol inhaler Shortness Of Breath fluticasone propionate 44 See Rx Instructions .Route .COMPLEX 09/08/20 11/16/20 09/08/20 09:00 History mcg/actuation HFA aerosol inhaler (Flovent HFA) Allergies Allergy/AdvReac Type Severity Reaction Status Date / Time latex Allergy Mild Rash Verified 06/26/24 09:53 Review of Systems Review of Systems: All systems reviewed & are unremarkable except as noted in HPI and below PMFSH Past Medical History Medical History Asthma (normal spontaneous vaginal delivery) Surgical History Surgical History No pertinent past surgical history Social History Social History Smoking status: Never smoker Second hand tobacco smoke exposure: No Substance use: never Gender identity (if verbalized by the patient): Female Spiritual care concerns: No Exam Narrative: EXAMINATION OF ORGAN SYSTEMS/BODY AREAS: Constitutional: Vital signs per nursing GENERAL:[No acute distress, non-toxic appearing.] HEAD: Normal with no signs of head trauma. EYES: EOMI, conjunctiva normal ENT: Hearing grossly intact LUNGS: Nonlabored breathing. HEART: [Regular rate and rhythm] he, DP pulse intact ABD: [Soft], [nontender to palpation] EXT: Bruising, swelling, tenderness to right ankle SKIN: Bruising to lateral right ankle NEURO: [Alert and oriented x 3. No gross focal sensory or strength deficits.] PSYCH: Normal affect Course Vital Signs Vital signs: Vital Signs Temperature 98.0 F 09/11/24 17:12 Pulse Rate 86 09/11/24 17:12 Respiratory Rate 16 09/11/24 17:12 Blood Pressure 128/67 09/11/24 17:12 Pulse Oximetry 98 09/11/24 17:12 Oxygen Delivery Room Air 09/11/24 17:12 Temperature 97.6 F 09/11/24 17:56 Pulse Rate 77 09/11/24 17:56 Respiratory Rate 18 09/11/24 17:56 Blood Pressure 113/69 09/11/24 17:56 Pulse Oximetry 99 09/11/24 17:56 Oxygen Delivery Room Air 09/11/24 17:12 MDM - Extremity Injury (Lower) MDM Narrative Medical decision making narrative: MEDICAL DECISION MAKING AND COURSE IN THE ED WITH INTERPRETATION/REVIEW OF DIAGNOSTIC STUDIES: Electronic medical record was reviewed. This patient was seen by myself. Patient presented to the ED with complaint of right ankle pain after tripping on stairs. Vitals [were within acceptable limits]. Physical exam revealed tenderness at right lateral malleolus with bruising, neurovascularly intact. Based on the patient's history and physical exam, I am concerned for fracture vs sprain. Ankle xrays were obtained showing thankfully no fracture. KERWIN wrap applied to injured extremity. Patient given strict return precautions if pain is worse, and advised to rest the limb and to followup with orthopedics as needed. Discharge Plan Discharge Clinical Impression: Ankle sprain Patient Disposition: Home Condition: Stable Instructions: Ankle Sprain (ED) Additional Instructions: Take ibuprofen and Tylenol for pain, try to keep the ankle elevated and use ice and try not to put weight on it. If you are still having issues walking in a week, follow up with the Foot and Ankle surgeon. Patient Language: [place] Prescriptions: No Action fluticasone propionate [Flovent HFA] 44 mcg/actuation HFA aerosol inhaler See Rx Instructions .ROUTE .COMPLEX Rx Instructions: 1 puff daily albuterol sulfate 90 mcg/actuation HFA aerosol inhaler 2 puff INHALATION PRN PRN (Reason: Shortness Of Breath) albuterol sulfate 90 mcg/actuation HFA aerosol inhaler 1 inh inhalation QID PRN (Reason: shortness of breath or wheezing) Qty: 6.7 0RF acetaminophen [Tylenol Extra Strength] 500 mg tablet 1,000 mg PO Q6H PRN (Reason: pain) Qty: 50 0RF ibuprofen 600 mg tablet 600 mg PO TID PRN (Reason: fever or pain) Qty: 30 0RF fluticasone propionate [Flonase Allergy Relief] 50 mcg/actuation spray,suspension 1 spray intranasal BID Qty: 16 0RF Rx Instructions: administer into each nostril oxycodone-acetaminophen [Percocet] 5-325 mg tablet 1 tablet PO Q6H PRN (Reason: pain) Qty: 14 0RF tamsulosin 0.4 mg capsule 0.4 mg PO DAILY 7 Days Qty: 7 0RF Follow-up/Referrals: Claudy Zavala Jr., DPM [Physician] - 2 Days UNKNOWN,DOCTOR [Primary Care Provider] -
[2024-09-11 17:56] VITALS: BP 113/69; PULSE 77; RESP 18; TEMP 36.4; O2SAT 99
== END 2024-09-11 18:00 | disposition home or self-care (01) ==
PROVIDERS: Emergency Provider Emergency Medicine
DX: S93.401A Sprain of unspecified ligament of right ankle, initial encounter (principal); X50.1XXA Overexertion from prolonged static or awkward postures, initial encounter; J45.909 Unspecified asthma, uncomplicated
CPT/HCPCS: 73610; 99283

== ENCOUNTER 2025-01-22 13:08 | Emergency (ER) | payer OTHER, SELFPAY ==
--- OUTSIDE RECORDS SUMMARY | 2024-09-30 04:40 | XMS_ITS ---
Author Organization [facility] Address [address] [place] [address] Care Team Providers Care Concrete Technician Name Role Phone Vel Castro Primary Care Provider REASON FOR VISIT 4 week F/U Social History Sex Assigned At : Social History Observation Description Sex Assigned At Female Encounters Encounter Location Date Provider Diagnosis [address] [place] [address] 09/30/2024 Vel Castro Plan Of Treatment No Information Progress Notes * Isabela REDDOB:2000 (24 yo F)Acc No.[id number]:09/30/2024 UNLOCKED PROGRESS NOTE Patient: Pablo HANSEN Provider: Shayne Castro APN :2000 A ge:24 Y S ex:Female Date:09/30/2024 Address:[address] [place], [place] [id number] Subjective: * Chief Complaints: * 1 . 4 week F/U. * Medical History: Objective: * Vitals: Assessment: Plan: * Treatment: * * Electronic signature of Vel Castro on 01/22/2025 at 03:55 PM CDT Sign off status: Pending * Provider: Shayne Castro APN Date: 09/30/2024 Generated for Printi ng/Faxing/eTransmitting on: 01/22/2025 03:55 PM CDT
--- OUTSIDE RECORDS SUMMARY | 2025-01-05 05:20 | XMS_ITS ---
Author Organization [facility] Address [address] [place] [address] Care Team Providers Care Orthopedic Nurse Practitioner Name Role Phone Vel Castro Primary Care Provider [phone] Debi Mendiola [phone] REASON FOR VISIT 4 week F/U Social History Sex Assigned At : Social History Observation Description Sex Assigned At Female Encounters Encounter Location Date Provider Diagnosis [address] [place] [address] 01/05/2025 Debi Mendiola Plan Of Treatment No Information Progress Notes * Isabela REDDOB:2000 (24 yo F)Acc No.[id number]:01/05/2025 UNLOCKED PROGRESS NOTE Patient: Pablo HANSEN Provider: KIRSTEN May :2000 A ge:24 Y S ex:Female Date:01/05/2025 Address:[address] [place], [place] [id number] Pcp:Vel Castro Subjective: * Chief Complaints: * 1 . 4 week F/U. * Medical History: Objective: * Vitals: Assessment: Plan: * Treatment: * * Electronic signature of Radha Mendiola on 01/22/2025 at 03:55 PM CDT Sign off status: Pending * Provider: KIRSTEN May Date: 0 01/05/2025 Generated for Rafaeli ng/Faadalbertog/eTransmitting on: 0 01/22/2025 03:55 PM CDT
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
[2025-01-22 13:27] VITALS: BP 135/81; PULSE 82; RESP 16; TEMP 36.3; O2SAT 99
[2025-01-22] MEDS: diphenhydrAMINE HCl CAP 25 MG CAPSULE 50 MG PO (14:21)
--- NOTE | 2025-01-22 15:10 | ED_ITS ---
HPI - General Adult General Chief complaint: Allergic Reaction Stated complaint: allergic reaction Time Seen by Provider: 01/22/25 14:01 History of Present Illness HPI narrative: Pablo Pro is a 24-year-old female who presents today with reports of having a possible allergic reaction. She states that she took some diet pills and she got really red and felt hot and felt like she was breaking out into a rash but it is definitely resolving since she has been here. She denies any shortness of breath denies swelling to her airway. She states that she took this medication before and felt like she had allergic reaction. Related Data Home Medications ?Medication ?Instructions ?Recorded ?Confirmed ?Last Taken ?Type albuterol sulfate 90 mcg/actuation 2 puff inhalation P RN PRN 09/08/20 11/16/20 Unknown History aerosol inhaler Shortness Of Breath fluticasone propionate 44 See Rx Instructions .Route . COMPLEX 09/08/20 11/16/20 09/08/20 09:00 History mcg/actuation HFA aerosol inhaler (Flovent HFA) Allergies Allergy/AdvReac Type Severity Reaction Status Date / Time latex Allergy Mild Rash Verified 06/26/24 09:53 lipozene Allergy shortness Uncoded 01/22/25 14:27 of breath zantrex Allergy shortness Uncoded 01/22/25 14:27 of breath Review of Systems Review of Systems: All systems reviewed & are unremarkable except as noted in HPI and below PMFSH Past Medical History Medical History (normal spontaneous vaginal delivery) Asthma Surgical History Surgical History No pertinent past surgical history Social History Social History Smoking status: Never smoker Second hand tobacco smoke exposure: No Substance use: never Gender identity (if verbalized by the patient): Female Spiritual care concerns: No Exam Narrative: GENERAL: Well-appearing, well-nourished, and in no acute distress. HEAD: Normocephalic, atraumatic. EYES: PERRLA and EOMI. ENT: Nares clear, no rhinorrhea or epistaxis. Mucous membranes moist. Oropharynx without tonsillar hypertrophy exudate or other lesions. NECK: Supple. No adenopathy or masses. No carotid bruits or JVD CHEST: Clear to auscultation. No respiratory distress. No wheezes rales or rhonchi HEART: Regular rate and rhythm. No murmur heard. Normal peripheral pulses. ABDOMEN: Soft, nontender, nondistended, normal active bowel sounds. EXTREMITIES: Normal range of motion. No edema. SKIN: Warm, dry, no rash. NEURO: No focal deficits. Alert and oriented x3. PSYCH: Normal mood and affect. Course Vital Signs Vital signs: Vital Signs Temperature 36.3 C L 01/22/25 13:27 Pulse Rate 82 01/22/25 13:27 Respiratory Rate 16 01/22/25 13:27 Blood Pressure 135/81 01/22/25 13:27 Pulse Oximetry 99 01/22/25 13:27 Oxygen Delivery Room Air 01/22/25 13:27 Temperature 36.4 C 01/22/25 15:23 Pulse Rate 64 01/22/25 15:23 Respiratory Rate 16 01/22/25 15:23 Blood Pressure 140/79 01/22/25 15:23 Pulse Oximetry 100 01/22/25 15:23 Oxygen Delivery Room Air 01/22/25 14:25 Medical Decision Making MDM Narrative Medical decision making narrative: [age] female who comes in with complaints of having allergic reaction to some [id number] diet medication that she tried to take. She states that after she took it she started to feel red hot she felt like she is getting a rash to her arms. She says that since she has been here she feels like the rash has gotten better and the redness has gone away. She states this is 2nd time that she has had this reaction and that this [id number] medication. Exam is not evident of any airway compromise no airway edema, or sounds are clear throughout. Patient given Benadryl and prednisone here and improving patient with no new or worsening symptoms. Patient is encouraged to stop taking the medication that she is obviously allergic to this. She seems to believe it was how she took it and a because with the medication however I told her she has had 2 reactions to this medication after taking than she is likely allergic to it. Patient discharged home continuation of cetirizine steroids and famotidine close follow-up with her primary care doctor encouraged return precautions discussed Medical Records Medical records reviewed: Yes I reviewed the external patient's medical records. Vital Signs Vital Signs: Vital Signs Temperature 36.3 C L 01/22/25 13:27 Pulse Rate 82 01/22/25 13:27 Respiratory Rate 16 01/22/25 13:27 Blood Pressure 135/81 01/22/25 13:27 Pulse Oximetry 99 01/22/25 13:27 Oxygen Delivery Room Air 01/22/25 13:27 Temperature 36.4 C 01/22/25 15:23 Pulse Rate 64 01/22/25 15:23 Respiratory Rate 16 01/22/25 15:23 Blood Pressure 140/79 01/22/25 15:23 Pulse Oximetry 100 01/22/25 15:23 Oxygen Delivery Room Air 01/22/25 14:25 Vital signs reviewed Discharge Plan Discharge Clinical Impression: Adverse effect of herbal medication Patient Disposition: Home Condition: Stable Instructions: Antibiotic Form Additional Instructions: Please continue to take the cetirizine once daily continues to take the steroids for the next 5 days start taking the Pepcid once daily the next 10 days stop using the medication that was causing this reaction. Follow-up with your primary care doctor next week if he develops any new worsening symptoms of fluids return to the emergency department Patient Language: Cypriot Prescriptions: New cetirizine 10 mg tablet 10 mg PO DAILY PRN (Reason: allergy symptoms) Qty: 30 0RF prednisone 20 mg tablet 40 mg PO DAILY Qty: 10 0RF famotidine [Pepcid] 20 mg tablet 20 mg PO DAILY Qty: 10 0RF No Action fluticasone propionate [Flovent HFA] 44 mcg/actuation HFA aerosol inhaler See Rx Instructions .ROUTE .COMPLEX Rx Instructions: 1 puff daily albuterol sulfate 90 mcg/actuation HFA aerosol inhaler 2 puff INHALATION PRN PRN (Reason: Shortness Of Breath) albuterol sulfate 90 mcg/actuation HFA aerosol inhaler 1 inh inhalation QID PRN (Reason: shortness of breath or wheezing) Qty: 6.7 0RF acetaminophen [Tylenol Extra Strength] 500 mg tablet 1,000 mg PO Q6H PRN (Reason: pain) Qty: 50 0RF ibuprofen 600 mg tablet 600 mg PO TID PRN (Reason: fever or pain) Qty: 30 0RF fluticasone propionate [Flonase Allergy Relief] 50 mcg/actuation spray,suspension 1 spray intranasal BID Qty: 16 0RF Rx Instructions: administer into each nostril oxycodone-acetaminophen [Percocet] 5-325 mg tablet 1 tablet PO Q6H PRN (Reason: pain) Qty: 14 0RF tamsulosin 0.4 mg capsule 0.4 mg PO DAILY 7 Days Qty: 7 0RF Follow-up/Referrals: UNKNOWN,DOCTOR [Primary Care Provider] Stand Alone Forms: Work/School Release IP Time of Disposition: 15:14
[2025-01-22 15:23] VITALS: BP 140/79; PULSE 64; RESP 16; TEMP 36.4; O2SAT 100
--- OUTSIDE RECORDS SUMMARY | 2025-01-22 15:55 | XMS_ITS | Patient Health Record ---
Author Organization [facility] Address [address] [place] [address] Care Team Providers Care Saw Offbearer Name Role Phone CastroVel slater Primary Care Provider Debi Mendiola Unavailable [phone] Allergies No Known Allergies Results Component Value Reference Range Notes Fluoxetine (Prozac), Serum Reviewed date:07/17/2024 11:56:37 AM Interpretation: Performing Lab: Notes/Report: HIV Screen *HIV 1, 2 Ab, p24 Ag (904640) Reviewed date:07/22/2024 10:51:27 AM Interpretation: Performing Lab:[facility], [facility] [facility], Phone - [phone], Director - Aminta Notes/Report: HIV Ab/p24 Ag Screen Non Reactive Non Reactive HIV-1/HIV-2 antibodies and HIV-1 p24 antigen were NOT detected. There is no laboratory evidence of HIV infection. HIV Negative Hemoglobin A1c* Reviewed date:07/22/2024 10:51:57 AM Interpretation: Performing Lab:[facility], [facility], Phone - [phone], Director - Aminta Notes/Report: Hemoglobin A1c 5.5 4.8-5.6 % . Prediabetes: 5.7 - 6.4 Diabetes: >6.4 Glycemic control for adults with diabetes: <7.0 Vitamin B12* Reviewed date:07/22/2024 10:50:23 AM Interpretation: Performing Lab:[facility], Phone - [phone], Director - Aminta Notes/Report: Vitamin B12 [phone] pg/mL Folate (Folic Acid), Serum* Reviewed date:07/22/2024 10:52:05 AM Interpretation: Performing Lab:[facility] [place], [address] [place] [address], Phone - [phone], Director - [facility] Notes/Report: Folate (Folic Acid), Serum 9.8 >3.0 ng/mL A serum folate concentration of less than 3.1 ng/mL is considered to represent clinical deficiency. CBC With Differential/Platel et* Reviewed date:07/22/2024 10:52:31 AM Interpretation: Performing Lab:[facility] [place], [address] [facility], Phone - [phone], Director - [facility] Notes/Report: WBC 6.0 3.4-10.8 x10E3/uL RBC 4.67 [...] % Immature Grans (Abs) 0.0 0.0-0.1 x10E3/uL Hepatitis B Surface Antigen (HBsAg Screen) Reviewed date:07/22/2024 10:51:49 AM Interpretation: Performing Lab:[facility] [employer] [place], [address] [facility], Phone - [phone], Director - [facility] Notes/Report: HBsAg Screen Negative Negative Vitamin D, 25-Hydroxy* Reviewed date:07/22/2024 10:50:15 AM Interpretation: Performing Lab:[facility] [address] [place] [address], Phone - [phone], Director - [facility] Notes/Report: Vitamin D, 25-Hydroxy 21.3 30.0-100.0 ng/mL Vitamin D deficiency has been defined by the [place] of [employer] and an Endocrine Society practice guideline as a level of serum 25-OH vitamin D less than 20 ng/mL (1,2). The Endocrine Society went on to further define vitamin D insufficiency as a level between 21 and 29 ng/mL (2). 1. IOM ([place] of Medicine). 2010. Dietary reference intakes for calcium and D. [place]: The National Academies Press. 2. Sandor MF, Phillip GONZALES, Nikky MACIAS, et al. Evaluation, treatment, and prevention of vitamin D deficiency: an Endocrine Society clinical practice guideline. JCEM. 2010; 96(7):1911-30. Hepatitis C Virus Antibody w /Rflx to Quantitative Real-time PCR ([id number]) Reviewed date:07/22/2024 10:51:38 AM Interpretation: Performing Lab:[facility] [address], Phone - [phone], Director - [facility] Notes/Report: HCV Ab Non Reactive Non Reactive Interpretation: Not infected with HCV unless early or acute infection is suspected (which may be delayed in an immunocompromised individual), or other evidence exists to indicate HCV infection. TSH+Free T4* Reviewed date:07/22/2024 10:50:31 AM Interpretation: Performing Lab:[facility] [address] [facility], Phone - [phone], Director - [facility] Notes/Report: TSH 2.770 0.450-4.500 uIU/mL T4,Free(Direct) 1.36 0.82-1.77 ng/dL Lipid Panel* Reviewed date:07/22/2024 10:51:16 AM Interpretation: Performing Lab:[facility] [address] [facility], Phone - [phone], Director - [facility] Notes/Report: Cholesterol, Total 152 100-199 mg/dL Triglycerides 102 0-149 mg/dL HDL Cholesterol 46 >39 mg/dL VLDL Cholesterol Riley 19 5-40 mg/dL LDL Chol Calc ([facility]) 87 0-99 mg/dL CMP 14 Comprehensive Metabol ic Panel* Reviewed date:07/22/2024 10:52:18 AM Interpretation: Performing Lab:[facility] [address] [place] [address], Phone - [phone], Director - [facility] Notes/Report: Glucose 80 70-99 mg/dL BUN 10 [...] 0-40 IU/L ALT (SGPT) 17 0-32 IU/L Aripiprazole Reviewed date:07/22/2024 10:49:55 AM Interpretation: Performing Lab:[facility] [place] [address] [facility], Phone - [phone], Director - [facility] Notes/Report: Aripiprazole 55.6 Expected steady state plasma levels in patients receiving recommended daily dosages: 109.0-585.0 ng/mL This test was developed and its performance characteristics determined by [facility]. It has not been cleared or approved by the Food and Drug Administration. RPR w/reflex to TrepSure Reviewed date:07/22/2024 10:51:06 AM Interpretation: Performing Lab:[facility] [place], [address] [facility], Phone - [phone], Director - [facility] Notes/Report: RPR Non Reactive Non Reactive Treponemal [...] full CDC-recommended syphilis screening and diagnosis algorithm, [facility] offers test code 845581 RPR, Rfx Qn RPR/Confirm TP or 181651 T pallidum Screening [place]. PDF Report Reviewed date:03/12/2024 04:50:06 PM Interpretation: Performing Lab:[facility], [address] [place] [address], Phone - [phone], Director - Yosi Notes/Report: ToxAssure, ToxAssure FLEX or MAT drug testing: Technical Component - Data Analysis performed at [address], [address] . Air Brakes Inspector Marcela Mcmahon MD PDF Report1 LS Comprehensive Drug Analysis, Urine Reviewed date:03/12/2024 04:49:47 PM Interpretation: Performing Lab:[facility], [address] [place] [address], Phone - [phone], Director - Yosi Notes/Report: ToxAssure, ToxAssure FLEX or MAT drug testing: Technical Component - Data Analysis performed at [address], [address] . Air Brakes Inspector Marcela Mcmahon MD Summary Report (Summary) FINAL [...] test is not intended to distinguish between ivjmz-1-lqguvmgjuvsrkzfwxvjl, the predominant form of THC in most herbal or marijuana-based products, and yirxe-2-nfyyzcpbyqickxljhfim. Fluoxetine PRESENT Norfluoxetine PRESENT Norfluoxetine is an expected metabolite of fluoxetine. Acetaminophen PRESENT Doxylamine PRESENT Dextromethorphan PRESENT Dextrorphan/Levorphanol PRESENT Dextrorphan is an expected metabolite of dextromethorphan, an urws-xwm-vunejie or prescription cough suppressant. Dextrorphan cannot be distinguished from the scheduled prescription medication levorphanol by the method used for analysis. Guaifenesin PRESENT Guaifenesin may be administered as an ktrk-ika-qjmdnhx or prescription drug; it may also be present as a breakdown product of methocarbamol. Propranolol PRESENT ======== Test Result Flag Units Ref Range Creatinine 131 mg/dL >=20 ======== For clinical consultation, please call . ======== PDF . Reason For Referral No Information Medications Medication SIG (Take, Route, Frequency, Duration) Notes Start Date End Date Status Propranolol HCl ER 60 MG 1 capsule Orall y Once a day; Duration: 30 days Active Albuterol Sulfate HFA 108 (90 Base) MCG/ACT 1 puff as needed Inhalation every 4 hrs Active QUEtiapine Fumarate 25 MG 3 TABLETS BY M OUTH AT BEDTIME; Duration: 30 days Active Ergocalciferol 1.25 MG (99222 UT) 1 capsule Orally once weekly; Duration: 30 days 07/22/2024 Active buPROPion HCl ER (XL) 150 MG [...] tablet Orally Onc e a day Active ARIPiprazole 15 MG 1 tablet once daily Orally Once a day; Duration: 30 days Active Advair Diskus 250-50 MCG/ACT 1 puff Inha lation Twice a day Active Immunizations Vaccine Route Administration Date Status Comme nts Influenza, virus vaccine, trivalent, preservative free IM Intramuscular 03/28/2024 Administered Daniella Plata karina Polk 03/28/2024 09:38:11 AM 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 > Social History Sex Assigned At : Social History Observation Description Sex Assigned At Female Problems Problem Type SNOMED Code ICD Code Onset Dates Problem Status W/U Status Risk Notes Problem Bipolar II disorder (29357488) Bipolar II disorder (F31.81) Active confirmed Problem Depression (122553836) Depression (F32.9) Active confirmed Problem Anxiety (84430574) Anxiety (F41.9) Active confirmed Problem Vitamin D deficiency (29256014) Vitamin D deficiency (E55.9) Active confirmed Problem Asthma (609789972) Asthma (J45.909) Active confirmed Problem Overweight (947610325) Over weight (E66.3) Active confirmed Problem H/O intravenous drug use in remission (Z87.898) Active confirmed Vital Signs Heart Rate 84 /min 06/20/2024 Temperature 98.2 degrees Fahrenheit 06/20/2024 Respiratory Rate 16 /min 06/20/2024 Blood pressure diastolic 78 mm Hg 06/20/2024 Oximetry 97 % 06/20/2024 Height 65 in 11/12/2024 Blood pressure systolic 124 mm Hg 06/20/2024 Weight 210 lbs 11/12/2024 BMI 34.94 kg/m2 11/12/2024 Encounters Encounter Location Date Provider Diagnosis [address] [place] [address] 01/28/2024 Vel Castro [address] [place] [address] 07/09/2024 Vel Castro Bipolar II disorder F31.81 ; Anxiety F41.9 ; Depression F32.9 ; Asthma J45.909 ; H/O intravenous drug use in remission Z87.898 ; Encounter for immunization Z23 ; Nutritional counseling Z71.3 and Therapeutic drug monitoring Z51.[address] [address] 02/26/2024 Velолег Auer Anxiety F41.9 ; Bipolar II disorder F31.81 ; Depression F32.9 ; Asthma J45.909 and H/O intravenous drug use in remission Z87.[address] [address] 03/28/2024 Vel Castro Bipolar II disorder F31.81 ; Anxiety F41.9 ; Depression F32.9 ; Asthma J45.909 ; H/O intravenous drug use in remission Z87.898 ; Encounter for immunization Z23 and Nutritional counseling Z71.[address] [address] 05/16/2024 Vel Castro Bipolar II disorder F31.81 ; Anxiety F41.9 ; Depression F32.9 ; Asthma J45.909 ; H/O intravenous drug use in remission Z87.898 ; Encounter for immunization Z23 and Nutritional counseling Z71.[address] [address] 06/20/2024 Vel Castro Bipolar II disorder F31.81 ; Anxiety F41.9 ; Depression F32.9 ; Asthma J45.909 ; H/O intravenous drug use in remission Z87.898 ; Encounter for immunization Z23 and Nutritional counseling Z71.[address] [address] 08/22/2024 Vel Castro Bipolar II disorder F31.81 ; Anxiety F41.9 ; Depression F32.9 ; Asthma J45.909 ; H/O intravenous drug use in remission Z87.898 ; Nutritional counseling Z71.3 and Over weight E66.[address] [address] 10/09/2024 Vel Castro Bipolar II disorder F31.81 ; Anxiety F41.9 ; Depression F32.9 ; Asthma J45.909 ; H/O intravenous drug use in remission Z87.898 ; Nutritional counseling Z71.3 and Over weight E66.[address] [place] [address] 11/12/2024 Debi Mendiola Over weight E66.3 ; Bipolar II disorder F31.81 ; Anxiety F41.9 ; Depression F32.9 ; H/O intravenous drug use in remission Z87.898 and Nutritional counseling Z71.[address] [address] 01/21/2025 Debi Mendiola Bipolar II disorder F31.81 ; Depression F32.9 and Anxiety F41.[address] [address] 02/19/2024 Vel Castro [address] [address] 02/26/2024 Vel Castro [address] [address] 02/26/2024 Vel Castro [address] [address] 03/29/2024 Vel Castro [address] [address] 03/31/2024 Vel Castro [address] [address] 03/31/2024 Vel Castro [facility] [address] [place] [address] 06/24/2024 Vel Castro Therapeutic drug monitoring Z51.81 ; Bipolar II disorder F31.81 ; Anxiety F41.9 and Depression F32.[address] [address] 07/17/2024 Velолег Castro Vitamin D deficiency E55.[address] [facility] [place] [address] 07/22/2024 Vel Castro Vitamin D deficiency E55.[address] [address] 07/25/2024 Vel Castro [address] [address] 08/01/2024 Vel Castro [address] [address] 08/15/2024 Vel Castro [facility] [address] [place] [address] 09/08/2024 Vel Castro [address] [address] 01/20/2025 Debi Mendiola Asthma J45.[address] [address] 02/19/2024 Vel Castro Depression F32.9 and Anxiety F41.9 Assessments Encounter Date Diagnosis (ICD Code) Assessment Notes Treatment Notes Treatment Clinical Notes Section Notes 02/26/2024 Bipolar II disorder (ICD-10 - F31.81) Duration (acute/chronic), stability (controlled/unco ntrolled): Chronic, uncontrolled Current medications/effi cacy: Somewhat, room for improvement Previous medication trials: [...] sodium (<2,000mg per day). Consume plenty of fruits/vegetable s, healthy grains/whole grains, unsaturated/heal thy fats (liquid at room temperature, such as [...] techniques, such as guided imagery, journaling, aromatherapy, acupuncture/acup ressure, deep breathing, etc. Practice healthy sleep hygiene - maintain regular routine, no caffeine after 1PM, no exercise 1-2 hours prior to bedtime, keep bedroom dark and cool, no TV or electronics while in bed. Consider melatonin as needed. Consider cognitive behavioral therapy for insomnia (CBT-I). Consider/Continu e therapy. Consider/Continu e substance cessation therapy as needed - contact office if desiring medication assisted therapy. Manage co-morbid conditions. Continue monitoring symptoms - report persistent or worsening/concer harmony symptoms to the office or go to the ER. For mental health CRISIS, please reach out to [phone] (National Suicide and Crisis Lifeline), 911, go to the emergency department, or contact the [facility] Crisis Unit/Team. Follow up as scheduled in 4 weeks or sooner if necessary. Follow up with PCP and/or other specialists as advised. NEXT STEP: Consider increasing lamotrigine pending response/tolerab ility. Consider increasing fluoxetine as needed. Consider increasing hydroxyzine as needed. Review labs. 02/26/2024 Anxiety (ICD-10 - F41.9) See assessment and plan for bipolar II disorder 05/16/2024 Bipolar II disorder (ICD-10 - F31.81) Duration (acute/chronic), stability (controlled/unco ntrolled): Chronic, increased irritability with recent increase in lamotrigine, see HPI Current medications/effi cacy: Somewhat, room for improvement Previous medication trials: [...] sodium (<2,000mg per day). Consume plenty of fruits/vegetable s, healthy grains/whole grains, unsaturated/heal thy fats (liquid at room temperature, such as [...] techniques, such as guided imagery, journaling, aromatherapy, acupuncture/acup ressure, deep breathing, etc. Practice healthy sleep hygiene - maintain regular routine, no caffeine after 1PM, no exercise 1-2 hours prior to bedtime, keep bedroom dark and cool, no TV or electronics while in bed. Consider melatonin as needed. Consider cognitive behavioral therapy for insomnia (CBT-I). Consider/Continu e therapy. Consider/Continu e substance cessation therapy as needed - contact office if desiring medication assisted therapy. Manage co-morbid conditions. Continue monitoring symptoms - report persistent or worsening/concer harmony symptoms to the office or go to the ER. For mental health CRISIS, please reach out to [phone] (National Suicide and Crisis Lifeline), 911, go to the emergency department, or contact the [facility] Crisis Unit/Team. Follow up as scheduled in 4 weeks or sooner if necessary. Follow up with PCP and/or other specialists as advised. NEXT STEP: Consider increasing aripiprazole pending response/tolerab ility. Consider increasing fluoxetine as needed. Consider increasing hydroxyzine as needed. Consider increasing propranolol pending response/tolerab ility. Review labs. 05/16/2024 Anxiety (ICD-10 - F41.9) See assessment and plan for bipolar II disorder 06/20/2024 Bipolar II disorder (ICD-10 - F31.81) Duration (acute/chronic), stability (controlled/unco ntrolled): Chronic, improvements with recent medication adjustments, still some room for improvement, see HPI Current medications/effi cacy: Somewhat, room for improvement Previous medication trials: [...] sodium (<2,000mg per day). Consume plenty of fruits/vegetable s, healthy grains/whole grains, unsaturated/heal thy fats (liquid at room temperature, such as [...] techniques, such as guided imagery, journaling, aromatherapy, acupuncture/acup ressure, deep breathing, etc. Practice healthy sleep hygiene - maintain regular routine, no caffeine after 1PM, no exercise 1-2 hours prior to bedtime, keep bedroom dark and cool, no TV or electronics while in bed. Consider melatonin as needed. Consider cognitive behavioral therapy for insomnia (CBT-I). Consider/Continu e therapy. Consider/Continu e substance cessation therapy as needed - contact office if desiring medication assisted therapy. Manage co-morbid conditions. Continue monitoring symptoms - report persistent or worsening/concer harmony symptoms to the office or go to the ER. For mental health CRISIS, please reach out to [phone] ([facility] Suicide and Crisis Lifeline), 911, go to the emergency department, or contact the [facility] Crisis Unit/Team. Follow up as scheduled in 4 weeks or sooner if necessary. Follow up with PCP and/or other specialists as advised. NEXT STEP: Consider increasing aripiprazole pending response/tolerab ility. Consider increasing fluoxetine as needed. Consider increasing hydroxyzine as needed. Consider increasing propranolol pending response/tolerab ility. Review labs. 06/24/2024 Bipolar II disorder (ICD-10 - F31.81) 06/24/2024 Therapeutic drug monitoring (ICD-10 - Z51.81) 07/17/2024 Vitamin D deficiency (ICD-10 - E55.9) 07/22/2024 Vitamin D deficiency (ICD-10 - E55.9) 08/22/2024 Bipolar II disorder (ICD-10 - F31.81) Duration (acute/chronic), stability (controlled/unco ntrolled): Chronic, noticeable improvements with recent medication adjustments, see HPI Current medications/effi cacy: Somewhat, room for improvement Previous medication trials: [...] sodium (<2,000mg per day). Consume plenty of fruits/vegetable s, healthy grains/whole grains, unsaturated/heal thy fats (liquid at room temperature, such as [...] techniques, such as guided imagery, journaling, aromatherapy, acupuncture/acup ressure, deep breathing, etc. Practice healthy sleep hygiene - maintain regular routine, no caffeine after 1PM, no exercise 1-2 hours prior to bedtime, keep bedroom dark and cool, no TV or electronics while in bed. Consider melatonin as needed. Consider cognitive behavioral therapy for insomnia (CBT-I). Consider/Continu e therapy. Consider/Continu e substance cessation therapy as needed - contact office if desiring medication assisted therapy. Manage co-morbid conditions. Continue monitoring symptoms - report persistent or worsening/concer harmony symptoms to the office or go to the ER. For mental health CRISIS, please reach out to [phone] (National Suicide and Crisis Lifeline), 911, go to the emergency department, or contact the [facility] Crisis Unit/Team. Follow up as scheduled in 4 weeks or sooner if necessary. Follow up with PCP and/or other specialists as advised. NEXT STEP: Consider increasing aripiprazole pending response/tolerab ility. Consider increasing fluoxetine as needed. Consider increasing hydroxyzine as needed. Consider increasing propranolol pending response/tolerab ility. Review labs. 08/22/2024 Anxiety (ICD-10 - F41.9) See assessment and plan for bipolar II disorder 01/20/2025 Asthma (ICD-10 - J45.909) 01/21/2025 Bipolar II disorder (ICD-10 - F31.81) 01/21/2025 Depression (ICD-10 - F32.9) See assessment and plan for bipolar II disorder 11/12/2024 Over weight (ICD-10 - E66.3) 10/09/2024 Bipolar II disorder (ICD-10 - F31.81) Duration (acute/chronic), stability (controlled/unco ntrolled): Chronic, somewhat controlled, room for improvement, see HPI Current medications/effi cacy: Somewhat, room for improvement Previous medication trials: sertraline, lamotrigine (irritability), quetiapine (oversedating) Current/previous therapies: Follows up with therapy regularly Examination as documented - see pertinent aspects of office visit documentation. Pertinent diagnostics: LABS COMPLETED IN 06/2024, SEE CHART Differential diagnoses: RECOMMENDATIONS: INCREASE fluoxetine as prescribed to assist with anxiety/depressi on - educated patient/guardian on adverse effects, risks and benefits, as well as alternative treatments Continue other medications as prescribed - educated patient/guardian on adverse effects, risks and benefits, as well as alternative treatments Consume well balanced diet, preferably low in saturated fats (solid at room temperature, such as butter, margarine, Crisco, etc) and low in sodium (<2,000mg per day). Consume plenty of fruits/vegetable s, healthy grains/whole grains, unsaturated/heal thy fats (liquid at room temperature, such as [...] techniques, such as guided imagery, journaling, aromatherapy, acupuncture/acup ressure, deep breathing, etc. Practice healthy sleep hygiene - maintain regular routine, no caffeine after 1PM, no exercise 1-2 hours prior to bedtime, keep bedroom dark and cool, no TV or electronics while in bed. Consider melatonin as needed. Consider cognitive behavioral therapy for insomnia (CBT-I). Consider/Continu e therapy. Consider/Continu e substance cessation therapy as needed - contact office if desiring medication assisted therapy. Manage co-morbid conditions. Continue monitoring symptoms - report persistent or worsening/concer harmony symptoms to the office or go to the ER. For mental health CRISIS, please reach out to [phone] (National Suicide and Crisis Lifeline), 911, go to the emergency department, or contact the [facility] Crisis Unit/Team. Follow up as scheduled in 4 weeks or sooner if necessary. Follow up with PCP and/or other specialists as advised. NEXT STEP: Consider increasing aripiprazole pending response/tolerab ility. Consider increasing fluoxetine as needed. Consider increasing hydroxyzine as needed. Consider increasing propranolol pending response/tolerab ility. Review labs. 07/09/2024 Bipolar II disorder (ICD-10 - F31.81) 03/28/2024 Bipolar II disorder (ICD-10 - F31.81) Duration (acute/chronic), stability (controlled/unco ntrolled): Chronic, improved with recent medication adjustments, still room for improvement, see HPI Current medications/effi cacy: Somewhat, room for improvement Previous medication trials: [...] sodium (<2,000mg per day). Consume plenty of fruits/vegetable s, healthy grains/whole grains, unsaturated/heal thy fats (liquid at room temperature, such as [...] techniques, such as guided imagery, journaling, aromatherapy, acupuncture/acup ressure, deep breathing, etc. Practice healthy sleep hygiene - maintain regular routine, no caffeine after 1PM, no exercise 1-2 hours prior to bedtime, keep bedroom dark and cool, no TV or electronics while in bed. Consider melatonin as needed. Consider cognitive behavioral therapy for insomnia (CBT-I). Consider/Continu e therapy. Consider/Continu e substance cessation therapy as needed - contact office if desiring medication assisted therapy. Manage co-morbid conditions. Continue monitoring symptoms - report persistent or worsening/concer harmony symptoms to the office or go to the ER. For mental health CRISIS, please reach out to [phone] ([facility]icide and Crisis Lif[facility]), 911, go to the emergency department, or contact the [facility] Crisis Unit/Team. Follow up as scheduled in 4 weeks or sooner if necessary. Follow up with PCP and/or other specialists as advised. NEXT STEP: Consider increasing lamotrigine pending response/tolerab ility. Consider increasing fluoxetine as needed. Consider increasing hydroxyzine as needed. Consider increasing propranolol pending response/tolerab ility. Review labs. 03/28/2024 Anxiety (ICD-10 - F41.9) See assessment and plan for bipolar II disorder 02/19/2024 Depression (ICD-10 - F32.9) 02/19/2024 Anxiety (ICD-10 - F41.9) 03/28/2024 Depression (ICD-10 - F32.9) See assessment and plan for bipolar II disorder 07/09/2024 Anxiety (ICD-10 - F41.9) 10/09/2024 Anxiety (ICD-10 - F41.9) See assessment and plan for bipolar II disorder 01/21/2025 Anxiety (ICD-10 - F41.9) See assessment and plan for bipolar II disorder 11/12/2024 Bipolar II disorder (ICD-10 - F31.81) Duration (acute/chronic), stability (controlled/unco ntrolled): Chronic, somewhat controlled, room for improvement, see HPI Current medications/effi cacy: Somewhat, room for improvement Previous medication trials: sertraline, lamotrigine (irritability), quetiapine (oversedating) Current/previous therapies: Follows up with therapy regularly Examination as documented - see pertinent aspects of office visit documentation. Pertinent diagnostics: LABS COMPLETED IN 06/2024, SEE CHART Differential diagnoses: RECOMMENDATIONS: INCREASE fluoxetine as prescribed to assist with anxiety/depressi on - educated patient/guardian on adverse effects, risks and benefits, as well as alternative treatments Continue other medications as prescribed - educated patient/guardian on adverse effects, risks and benefits, as well as alternative treatments Consume well balanced diet, preferably low in saturated fats (solid at room temperature, such as butter, margarine, Crisco, etc) and low in sodium (<2,000mg per day). Consume plenty of fruits/vegetable s, healthy grains/whole grains, unsaturated/heal thy fats (liquid at room temperature, such as [...] techniques, such as guided imagery, journaling, aromatherapy, acupuncture/acup ressure, deep breathing, etc. Practice healthy sleep hygiene - maintain regular routine, no caffeine after 1PM, no exercise 1-2 hours prior to bedtime, keep bedroom dark and cool, no TV or electronics while in bed. Consider melatonin as needed. Consider cognitive behavioral therapy for insomnia (CBT-I). Consider/Continu e therapy. Consider/Continu e substance cessation therapy as needed - contact office if desiring medication assisted therapy. Manage co-morbid conditions. Continue monitoring symptoms - report persistent or worsening/concer harmony symptoms to the office or go to the ER. For mental health CRISIS, please reach out to [phone] (National Suicide and Crisis Lifeline), 911, go to the emergency department, or contact the [facility] Crisis Unit/Team. Follow up as scheduled in 4 weeks or sooner if necessary. Follow up with PCP and/or other specialists as advised. NEXT STEP: Consider increasing aripiprazole pending response/tolerab ility. Consider increasing fluoxetine as needed. Consider increasing hydroxyzine as needed. Consider increasing propranolol pending response/tolerab ility. Review labs. 06/24/2024 Anxiety (ICD-10 - F41.9) 08/22/2024 Depression (ICD-10 - F32.9) See assessment and plan for bipolar II disorder 06/20/2024 Anxiety (ICD-10 - F41.9) See assessment and plan for bipolar II disorder 05/16/2024 Depression (ICD-10 - F32.9) See assessment and plan for bipolar II disorder 02/26/2024 Depression (ICD-10 - F32.9) See assessment and plan for bipolar II disorder 05/16/2024 Asthma (ICD-10 - J45.909) Duration (acute/chronic), stability (controlled/unco ntrolled): Chronic, improved since starting Advair as prescribed by this provider, still some room for improvement - patient doesn't yet have a PCP, agreeable to getting a PCP for management Current medications/effi cacy: Somewhat, room for improvement Previous medication trials: albuterol PRN Current/previous therapies: N/A Examination as documented - see pertinent aspects of office visit documentation. Pertinent diagnostics: LABS ORDERED TODAY - PATIENT TO FOLLOW UP FOR LAB VISIT Differential diagnoses: RECOMMENDATIONS: INCREASE Advair as prescribed - educated patient/guardian on [...] sodium (<2,000mg per day). Consume plenty of fruits/vegetable s, healthy grains/whole grains, unsaturated/heal thy fats (liquid at room temperature, such as [...] techniques, such as guided imagery, journaling, aromatherapy, acupuncture/acup ressure, deep breathing, etc. Consider/Continu e substance cessation therapy as needed - contact office if desiring medication assisted therapy. Manage co-morbid conditions. Continue monitoring symptoms - report persistent or worsening/concer harmony symptoms to the office or go to the ER. Follow up as scheduled or sooner if necessary. Follow up with PCP and/or other specialists as advised. NEXT STEP: Consider increasing Advair pending tolerability/res ponse as needed if asthma continues to be uncontrolled. 02/26/2024 Asthma (ICD-10 - J45.909) Duration (acute/chronic), stability (controlled/unco ntrolled): Chronic, uncontrolled on albuterol alone - patient doesn't yet have a PCP, agreeable to getting a PCP for management Current medications/effi cacy: No Previous medication trials: albuterol PRN Current/previous [...] sodium (<2,000mg per day). Consume plenty of fruits/vegetable s, healthy grains/whole grains, unsaturated/heal thy fats (liquid at room temperature, such as [...] techniques, such as guided imagery, journaling, aromatherapy, acupuncture/acup ressure, deep breathing, etc. Consider/Continu e substance cessation therapy as needed - contact office if desiring medication assisted therapy. Manage co-morbid conditions. Continue monitoring symptoms - report persistent or worsening/concer harmony symptoms to the office or go to the ER. Follow up as scheduled or sooner if necessary. Follow up with PCP and/or other specialists as advised. NEXT STEP: Consider increasing Advair pending tolerability/res ponse as needed if asthma continues to be uncontrolled. 06/24/2024 Depression (ICD-10 - F32.9) 06/20/2024 Depression (ICD-10 - F32.9) See assessment and plan for bipolar II disorder 08/22/2024 Asthma (ICD-10 - J45.909) Duration (acute/chronic), stability (controlled/unco ntrolled): Chronic, well controlled with Advair as prescribed by this provider - patient doesn't yet have a PCP, agreeable to getting a PCP for management Current medications/effi cacy: Yes Previous medication trials: albuterol PRN Current/previous therapies: N/A Examination as documented - see pertinent aspects of office visit documentation. Pertinent diagnostics: LABS COMPLETED IN 06/2024, SEE CHART Differential diagnoses: RECOMMENDATIONS: CONTINUE Advair as prescribed [...] sodium (<2,000mg per day). Consume plenty of fruits/vegetable s, healthy grains/whole grains, unsaturated/heal thy fats (liquid at room temperature, such as [...] techniques, such as guided imagery, journaling, aromatherapy, acupuncture/acup ressure, deep breathing, etc. Consider/Continu e substance cessation therapy as needed - contact office if desiring medication assisted therapy. Manage co-morbid conditions. Continue monitoring symptoms - report persistent or worsening/concer harmony symptoms to the office or go to the ER. Follow up as scheduled or sooner if necessary. Follow up with PCP and/or other specialists as advised. NEXT STEP: Consider increasing Advair pending tolerability/res ponse as needed if asthma continues to be uncontrolled. 11/12/2024 Anxiety (ICD-10 - F41.9) See assessment and plan for bipolar II disorder 10/09/2024 Depression (ICD-10 - F32.9) See assessment and plan for bipolar II disorder 07/09/2024 Depression (ICD-10 - F32.9) 03/28/2024 Asthma (ICD-10 - J45.909) Duration (acute/chronic), stability (controlled/unco ntrolled): Chronic, improved since starting Advair as prescribed by this provider, has only required albuterol once over the last month, previously using albuterol once daily - patient doesn't yet have a PCP, agreeable to getting a PCP for management Current medications/effi cacy: Yes Previous medication trials: albuterol PRN Current/previous [...] sodium (<2,000mg per day). Consume plenty of fruits/vegetable s, healthy grains/whole grains, unsaturated/heal thy fats (liquid at room temperature, such as [...] techniques, such as guided imagery, journaling, aromatherapy, acupuncture/acup ressure, deep breathing, etc. Consider/Continu e substance cessation therapy as needed - contact office if desiring medication assisted therapy. Manage co-morbid conditions. Continue monitoring symptoms - report persistent or worsening/concer harmony symptoms to the office or go to the ER. Follow up as scheduled or sooner if necessary. Follow up with PCP and/or other specialists as advised. NEXT STEP: Consider increasing Advair pending tolerability/res ponse as needed if asthma continues to be uncontrolled. 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 Pertinent diagnostics: LABS ORDERED DURING PREVIOUS APPOINTMENT - PATIENT AGREEABLE TO LAB COLLECTION AT NEXT FOLLOW UP Differential diagnoses: RECOMMENDATIONS: Manage co-morbid conditions. Continue monitoring symptoms - report persistent or worsening/concer harmony symptoms to the office or go to the ER. For mental health CRISIS, please reach out to [phone] ([facility] Suicide and Crisis Lifeline), 911, go to the emergency department, or contact the [facility] Crisis Unit/Team. Follow up as scheduled or sooner if necessary. Follow up with PCP and/or other specialists as advised. NEXT STEP: Review lab results. 07/09/2024 Asthma (ICD-10 - J45.909) 10/09/2024 Asthma (ICD-10 - J45.909) Duration (acute/chronic), stability (controlled/unco ntrolled): Chronic, well controlled with Advair as prescribed by this provider - patient doesn't yet have a PCP, agreeable to getting a PCP for management Current medications/effi cacy: Yes Previous medication trials: albuterol PRN Current/previous therapies: N/A Examination as documented - see pertinent aspects of office visit documentation. Pertinent diagnostics: LABS COMPLETED IN 06/2024, SEE CHART Differential diagnoses: RECOMMENDATIONS: CONTINUE Advair as prescribed [...] sodium (<2,000mg per day). Consume plenty of fruits/vegetable s, healthy grains/whole grains, unsaturated/heal thy fats (liquid at room temperature, such as [...] techniques, such as guided imagery, journaling, aromatherapy, acupuncture/acup ressure, deep breathing, etc. Consider/Continu e substance cessation therapy as needed - contact office if desiring medication assisted therapy. Manage co-morbid conditions. Continue monitoring symptoms - report persistent or worsening/concer harmony symptoms to the office or go to the ER. Follow up as scheduled or sooner if necessary. Follow up with PCP and/or other specialists as advised. NEXT STEP: Consider increasing Advair pending tolerability/res ponse as needed if asthma continues to be uncontrolled. 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 Pertinent diagnostics: LABS COMPLETED IN 06/2024, SEE CHART Differential diagnoses: RECOMMENDATIONS: Manage co-morbid conditions. Continue monitoring symptoms - report persistent or worsening/concer harmony symptoms to the office or go to the ER. For mental health CRISIS, please reach out to [phone] (National Suicide and Crisis Lifeline), 911, go to the emergency department, or contact the [facility] Crisis Unit/Team. Follow up as scheduled or sooner if necessary. Follow up with PCP and/or other specialists as advised. NEXT STEP: Repeat labs as needed. 11/12/2024 Depression (ICD-10 - F32.9) See assessment and plan for bipolar II disorder 06/20/2024 Asthma (ICD-10 - J45.909) Duration (acute/chronic), stability (controlled/unco ntrolled): Chronic, much improved with recent increase in Advair - patient doesn't yet have a PCP, agreeable to getting a PCP for management Current medications/effi cacy: Yes Previous medication trials: albuterol PRN Current/previous [...] sodium (<2,000mg per day). Consume plenty of fruits/vegetable s, healthy grains/whole grains, unsaturated/heal thy fats (liquid at room temperature, such as [...] techniques, such as guided imagery, journaling, aromatherapy, acupuncture/acup ressure, deep breathing, etc. Consider/Continu e substance cessation therapy as needed - contact office if desiring medication assisted therapy. Manage co-morbid conditions. Continue monitoring symptoms - report persistent or worsening/concer harmony symptoms to the office or go to the ER. Follow up as scheduled or sooner if necessary. Follow up with PCP and/or other specialists as advised. NEXT STEP: Consider increasing Advair pending tolerability/res ponse as needed if asthma continues to be uncontrolled. 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 Pertinent diagnostics: LABS ORDERED TODAY - PATIENT TO FOLLOW UP FOR LAB VISIT Differential diagnoses: RECOMMENDATIONS: Manage co-morbid conditions. Continue monitoring symptoms - report persistent or worsening/concer harmony symptoms to the office or go to the ER. For mental health CRISIS, please reach out to [phone] ([place] Suicide and Crisis Lifeline), 911, go to the emergency department, or contact the [facility] Crisis Unit/Team. Follow up as scheduled or sooner if necessary. Follow up with PCP and/or other specialists as advised. NEXT STEP: Review lab results. 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 Pertinent diagnostics: LABS ORDERED AGAIN TODAY - PATIENT TO FOLLOW UP FOR LAB VISIT Differential diagnoses: RECOMMENDATIONS: Manage co-morbid conditions. Continue monitoring symptoms - report persistent or worsening/concer harmony symptoms to the office or go to the ER. For mental health CRISIS, please reach out to [phone] ([facility] [place] [facility]), 911, go to the emergency department, or contact the [facility] Crisis Unit/Team. Follow up as scheduled or sooner if necessary. Follow up with PCP and/or other specialists as advised. NEXT STEP: Review lab results. 05/16/2024 Encounter for immunization (ICD-10 - Z23) Ordered per standing orders for administering influenza vaccine to adults. 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 Pertinent diagnostics: LABS ORDERED PREVIOUSLY - PATIENT AGREEABLE TO FOLLOWING UP FOR LAB VISIT WHEN ABLE. Differential diagnoses: RECOMMENDATIONS: Manage co-morbid conditions. Continue monitoring symptoms - report persistent or worsening/concer harmony symptoms to the office or go to the ER. For mental health CRISIS, please reach out to [phone] ([facility] [place] [facility]), 911, go to the emergency department, or contact the [facility] Crisis Unit/Team. Follow up as scheduled or sooner if necessary. Follow up with PCP and/or other specialists as advised. NEXT STEP: Review lab results. 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 Pertinent diagnostics: LABS COMPLETED IN 06/2024, SEE CHART Differential diagnoses: RECOMMENDATIONS: Manage co-morbid conditions. Continue monitoring symptoms - report persistent or worsening/concer harmony symptoms to the office or go to the ER. For mental health CRISIS, please reach out to [phone] ([facility] [place] [facility]), 911, go to the emergency department, or contact the [facility] Crisis Unit/Team. Follow up as scheduled or sooner if necessary. Follow up with PCP and/or other specialists as advised. NEXT STEP: Repeat labs as needed. 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 Pertinent diagnostics: LABS COMPLETED IN 06/2024, SEE CHART Differential diagnoses: RECOMMENDATIONS: Manage co-morbid conditions. Continue monitoring symptoms - report persistent or worsening/concer harmony symptoms to the office or go to the ER. For mental health CRISIS, please reach out to [phone] ([facility] [place]), 911, go to the emergency department, or contact the [facility] Crisis Unit/Team. Follow up as scheduled or sooner if necessary. Follow up with PCP and/or other specialists as advised. NEXT STEP: Repeat labs as needed. 03/28/2024 Encounter for immunization (ICD-10 - Z23) Ordered per standing orders for administering influenza vaccine to adults. 07/09/2024 Encounter for immunization (ICD-10 - Z23) 10/09/2024 Nutritional counseling (ICD-10 - Z71.3) 11/12/2024 Nutritional counseling (ICD-10 - Z71.3) 06/20/2024 Encounter for immunization (ICD-10 - Z23) Ordered per standing orders for administering influenza vaccine to adults. 05/16/2024 Nutritional counseling (ICD-10 - Z71.3) 06/20/2024 Nutritional counseling (ICD-10 - Z71.3) 08/22/2024 Over weight (ICD-10 - E66.3) 10/09/2024 Over weight (ICD-10 - E66.3) 07/09/2024 Nutritional counseling (ICD-10 - Z71.3) 03/28/2024 Nutritional counseling (ICD-10 - Z71.3) 07/09/2024 Therapeutic drug monitoring (ICD-10 - Z51.81) Plan Of Treatment Pending Test Test Name Order Date Comprehensive Drug Analysis, Urine 12/16 Insurance Providers Payer Name Payer Address Payer Phone Subscriber Number Group Number Insured Name Patient Relationship to Insured Coverage Start Date Coverage End Date [facility] Attn Claims Department [address] [place] [address] [phone] [id number] Palbo Sorensen Self - patient is the insured 4 [facility] Attn Claims Department [address] [place] [address] [phone] Pablo Sorensen Self - patient is the insured 4 Medical (General) History Medical History History ICD Code depression bipolar disorder Surgical History Surgery Date(Month/Year) dilatation and curettage 2021 Hospitalization History Reason Date(Month/Year) childbirth 12/19/2023
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
--- OUTSIDE RECORDS SUMMARY | 2025-01-22 15:55 | XMS_ITS | Clinical Summary ---
Author Organization [facility] Address [address] [place] [address] Phone Care Team Providers Care Silk Screen Etcher Name Role Phone Provider, None Primary Care Provider Unavailabl e Allergies No known active allergies Medications albuterol 108 (90 Base) MCG/ACT Aerosol Solution take 2 Puffs by inhalation 4 times daily as needed. 2 Active famotidine (Pepcid) 20 MG Tablet Take 1 Tablet by mouth 2 times daily. 60 Tablet 3 Active ondansetron (ZOFRAN-ODT) 4 MG TABLET DISPERSIBLE Take 1 Tablet by mouth every 6 hours as needed for Nausea - 1st line. 10 Tablet 3 Active fluticasone (FLONASE) 50 MCG/ACT Suspension 1-2 Sprays by Nasal route daily. Use in each nostril as directed. 9.9 mL 3 Active ketorolac (TORADOL) 10 MG Tablet Take 1 Tablet by mouth every 6 hours as needed for Moderate or more severe pain. 20 Tablet 3 Active dicyclomine (BENTYL) 20 MG Tablet Take 1 Tablet by mouth every 6 hours. 30 Tablet 3 Active HYDROcodone-acet aminophen (NORCO) 5-325 MG TabletIndication s:Pain due to dental caries Take 1 Tablet by mouth every 4 hours as needed for Severe pain. 20 Tablet 3 Active metoclopramide (REGLAN) 10 MG Tablet Take 1 Tablet by mouth 4 times daily as needed for Nausea - 1st line. 15 Tablet 4 Active predniSONE (DELTASONE) 20 MG TabletIndication s:Contact Dermatitis Take 1 Tablet by mouth daily. Indications: Contact Dermatitis 30 Tablet 5 Active ondansetron (ZOFRAN) 4 MG Tablet Take 1 Tablet by mouth every 8 hours as needed for Nausea - 1st line. 10 Tablet 5 Active amoxicillin (AMOXIL) 875 MG Tablet Take 1 Tablet by mouth 2 times daily for 14 days. 28 Tablet 5 01/03/20 25 Active Problems Problem Noted Date Diagnosed Date Pneumonia complicating in first trimes ter 04/29/2022 Anemia 04/29/2022 Sinusitis 04/29/2022 Incomplete miscarriage 04/28/2022 Encounters Date Type Department Care Team Description 12/27/2024 5:32 PM CDT - 12/27/2024 7:37 PM CDT Emergency [facility] Emergency [address] [place] [address] Malcolm Tavares, MAKAYLA Sinusitis Discharge Disposition: Discharged to home or Selfcare 12/27/2024 Travel 12/19/2024 7:58 AM CDT - 12/19/2024 11:21 AM CDT Emergency [facility] Emergency [address] [place] [address] Ga Naranjo MD Near syncope Discharge Disposition: Discharged to home or Selfcare 12/19/2024 Travel from Last 3 Months Social History Tobacco Use Types Packs/Day Years Used Date Smoking Tobacco: Never Smokeless Tobacco: Never Tobacco Cessation:Counseling Given: Not Answered Alcohol Use Standard Drinks/Week Comments Not Currently 0 (1 standard drink = 0.6 oz pur e alcohol) occasionally Comments Unknown Sex and Gender Information Value Date Recorded Sex Assigned at Female 07/27/2023 11:41 PM CDT 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 Gender Identity Female 07/27/2023 11:41 PM CDT Sexual Orientation Not on file Last Filed Vital Signs Vital Sign Reading Time Taken Comments Blood Pressure 120/89 12/27/2024 7:15 PM CDT Pulse 67 12/27/2024 7:15 PM CDT Temperature 36.5 C (97.7 F) 12/27/2024 5:38 PM CDT Respiratory Rate 15 12/27/2024 7:15 PM CDT Oxygen Saturation 100% 12/27/2024 7:15 PM CDT Inhaled Oxygen Concentration - - Weight 108.9 kg (240 lb) 12/19/2024 8:03 AM CDT Height 165.1 cm (5' 5) 12/19/2024 8:03 AM CDT Body Mass Index 39.94 12/19/2024 8:03 AM CDT Plan of Treatment Health Maintenance Due Date Last Done Comments Hepatitis C Virus (HCV) Screening 2001 Meningococcal B Immunization (2 of 2 - Bexsero SCDM 2-dose series) 08/11/2021 02/10/2021 Pap Smear 2022 Influenza Immunization (#1) 12/29/202403/01, 01/22/2024, 09/20/2023, Additional history exists SARS-COV-2 Immunization (2 - season) 2024 02/10/2021 Respiratory Syncytial Virus (RSV) Immunization (Adult) (1 - 1-dose 75+ series) 2076 Pneumococcal Immunization Combined Aged Out 01/08/2006, 2001, 2001 No longer eligible based on patient's age to complete this topic Hepatitis B Immunization Completed 007, 03/04/2002, 2001, Additional history exists Human Papillomavirus (HPV) Immunization Completed 01/06/2016, 10/20/2013, 10/30/2012 Meningococcal Immunization (ACWY) Completed 01/20/2019, 10/30/2012 DTaP/Tdap/Td Immunization Discontinued 2021, 08/31/2020, 10/30/2012, Additional history exists TdaP Immunization Completed 09/12/2021, , 10/30/2012 Rotavirus Immunization Aged Out No lo nger eligible based on patient's age to complete this topic Procedures Procedure Name Priority Date/Time Associated Diagnosis Comments URINALYSIS REFLEX IF INDICATED BY ABNORMAL RESULTS STAT 12/27/2024 7:00 PM CDT POCT URINE HCG () STAT 12/27/2024 6:00 PM CDT GROUP A STREP BY PCR STAT 12/27/2024 5:43 PM CDT RSV,SARS-COV-2,INFLUE NZA A&B BY PCR STAT 12/27/2024 5:43 PM CDT RSV,SARS-COV-2,INFLUE NZA A&B BY PCR STAT 12/19/2024 8:22 AM CDT GOLD TOP TUBE STAT 12/19/2024 8:15 AM CDT BLUE TOP TUBE STAT 12/19/2024 8:15 AM CDT CBC WITH AUTO DIFFERENTIAL STAT 12/19/2024 8:15 AM CDT EXTRA TUBES STAT 12/19/2024 8:15 AM CDT LIPASE STAT 12/19/2024 8:15 AM CDT TROPONIN I, HIGH SENSITIVITY (HSTRP) STAT 12/19/2024 8:15 AM CDT CMP (COMPREHENSIVE METABOLIC PANEL) STAT 12/19/2024 8:15 AM CDT COMPLETE BLOOD COUNT (CBC) WITH DIFF STAT 12/19/2024 8:15 AM CDT POCT GLUCOSE STAT 12/19/2024 8:05 AM CDT EKG 12 LEAD STAT 12/19/2024 8:00 AM CDT EKG SCAN 12/19/2024 12:00 AM CDT from Last 3 Months Results * (ABNORMAL) Urinalysis w/ Reflex (12/27/2024 7:00 PM CDT) SPECIFIC GRAVITY 1.020 1.003 - 1.030 12/27/2024 7:16 PM CDT [facility] URINE PH 6.0 5.0 - 9.0 12/27/2024 7:16 PM CDT [facility] WBC ESTERASE Negative Negative 12/27/2024 7:16 PM CDT [facility] NITRITE Negative Negative 12/27/2024 7:16 PM CDT [facility] PROTEIN, RANDOM URINE 15 mg/dL(A) Negative 12/27/2024 7:16 PM CDT [facility] URINE GLUCOSE, QUAL Negative Negative 12/27/2024 7:16 PM CDT [facility] URINE KETONES Negative Negative 12/27/2024 7:16 PM CDT [facility] UROBILINOGEN Normal Normal mg/dL 12/27/2024 7:16 PM CDT [facility] URINE BLOOD 50 /uL(A) Negative marine/ul 12/27/2024 7:16 PM CDT [facility] URINALYSIS COLOR Yellow 12/28/19 7:16 PM CDT [facility] URINALYSIS CLARITY Clear 12/27/2024 7:16 PM CDT [facility] WBC (Urine) 0-5 Negative, 0-5 /hpf 12/27/2024 7:16 PM CDT [facility] URINE RBC'S 3-5(A) Negative, 0-2 /hpf 12/27/2024 7:16 PM CDT [facility] EPITHELIAL CELLS Large amount squamous /lpf 12/27/2024 7:16 PM CDT [facility] BACTERIA, URINE Few(A) Negative /hpf 12/27/2024 7:16 PM CDT [facility] URINE MUCOUS Few 12/27/2024 7:16 PM CDT [facility] Urine URINE SPECIMEN / Unknown Non-Phlebotomy Collection / Unknown 12/27/2024 7:00 PM CDT 12/27/2024 7:00 PM CDT us Malcolm Tavares PAC URINE ORDERABLES Fin al Result [facility] [address] [place] [address] * POCT Urine HCG () (12/27/2024 6:00 PM CDT) [facility] POC URINE Negative POC URINE CONTROL [place] [facility] Urine 12/27/2024 6:00 PM CDT Malcolm Tavares [facility] POINT OF CARE TESTIN G (MANUAL) Final Result * GROUP A STREP BY PCR (12/27/2024 5:43 PM CDT) [facility] GROUP A STREP BY PCR NOT DETECTED NOT DETECTED 12/27/2024 6:18 PM CDT [facility] Swab STRUCTURE OF ANTERIOR REGION OF NECK / Unknown Non-Phlebotomy Collection / Unknown 12/27/2024 5:43 PM CDT 12/27/2024 5:49 PM CDT Malcolm Tavares [facility] MICROBIOLOGY - GENER AL ORDERABLES Final Result [facility] [address] [place] [address] * RSV,SARS-COV-2,INFLUENZA A&B BY PCR (12/27/2024 5:43 PM CDT) Only the most recent of2 resultswithin the time period is included. [facility] FLU A Negative Negative, Error 12/27/2024 6:30 PM CDT [facility] FLU B Negative Negative 12/27/2024 6:30 PM CDT [facility] RESP SYNC VIRUS Negative Negative 6:30 PM CDT [facility] SARSCOV2 NOT DETECTED (Reference Range for this test is Not Detected) 12/27/2024 6:30 PM CDT [facility] Comment:This test was perfor med by a Reverse Rn Clinical PCR Method. Nasal NASOPHARYNGEAL SWAB / Unknown Non-Phlebotomy Collection / Unknown 12/27/2024 5:43 PM CDT 12/27/2024 5:50 PM CDT Malcolm BENAVIDES MICROBIOLOGY - GENER AL ORDERABLES Final Result Performing Organization Address City/[facility] Co de Phone Number [facility] [address] [place] [address] * TROPONIN I, HIGH SENSITIVITY (HSTRP) (12/19/2024 8:15 AM CDT) [facility] TROPONIN I, HIGH SENSITIVITY- [place] <2.7 <=14.0 ng/L 12/19/2024 8:51 AM CDT [facility] Comment: High-sensitivity troponin I results are reported in ng/L making the result appear to be 1,000 times higher than the contemporary troponin I value which is reported in ng/ml. Results from [place]. Blood Venipuncture / Unknown 12/19/2024 8:15 AM CDT 12/19/2024 8:22 AM CDT Ga Naranjo MD CHEMISTRY ORDERABLES Fin al Result Performing Organization Address City/[facility] Co de Phone Number [facility] [address] [place] [address] * Gold Top Tube (12/19/2024 8:15 AM CDT) Blood No Phlebotomy Charged / Unknown 12/19/2024 8:15 AM CDT 12/19/2024 8:24 AM CDT Ga Naranjo MD CHEMISTRY ORDERABLES Fin al Result [facility] [address] [place] [address] * Blue Top Tube (12/19/2024 8:15 AM CDT) Blood No Phlebotomy Charged / Unknown 12/19/2024 8:15 AM CDT 12/19/2024 8:24 AM CDT us Ga Naranjo MD HEMATOLOGY ORDERABLES Fi nal Result [facility] [address] [place] [address] * (ABNORMAL) CBC with Auto Differential (12/19/2024 8:15 AM CDT) WBC 7.10 4.00 - 12.00 10(3)/mcL 12/19/2024 8:30 AM CDT [facility] RBC 4.11 3.80 - 5.30 10(6)/mcL 12/19/2024 8:30 AM CDT [facility] HEMOGLOBIN (HGB) 12.3 12.0 - 15.8 g/dL 12/19/2024 8:30 AM CDT [facility] HEMATOCRIT (HCT) 37.6 36.0 - 47.0 % 12/19/2024 8:30 AM CDT [facility] MCV 91.5 82.0 - 96.0 fL 12/19/2024 8:30 AM CDT [facility] MCH 29.9 26.0 - 34.0 pg 12/19/2024 8:30 AM CDT [facility] MCHC 32.7 31.0 - 36.0 g/dL 12/19/2024 8:30 AM CDT [facility] PLATELET COUNT 327 140 - 440 10(3)/mcL 12/19/2024 8:30 AM CDT [facility] RDW 12.9 11.8 - 15.5 % 12/19/2024 8:30 AM CDT [facility] MPV 10.7 9.7 - 12.4 fL 12/19/2024 8:30 AM CDT [facility] NEUTROPHILS 45.2(L) 47.0 - 73.0 % 12/19/2024 8:30 AM CDT [facility] LYMPHOCYTES 40.4 18.0 - 42.0 % 12/19/2024 8:30 AM CDT [facility] MONOCYTES 7.6 4.0 - 12.0 % 12/19/2024 8:30 AM CDT [facility] EOSINOPHILS 5.4(H) 0.0 - 5.0 % 12/19/2024 8:30 AM CDT [facility] BASOPHILS 0.8 0.0 - 1.0 % 12/19/2024 8:30 AM CDT [facility] IMMATURE GRANULOCYTE 0.6(H) 0.0 - 0.4 % 12/19/2024 8:30 AM CDT [facility] Comment:Immature Granulocyte s includes Metamyelocytes, Myelocytes, and Promyelocytes. ABSOLUTE NEUTROPHILS 3.21 1.60 - 7.70 10(3)/mcL 12/19/2024 8:30 AM CDT [facility] ABSOLUTE LYMPHOCYTES 2.87 1.30 - 3.20 10(3)/mcL 12/19/2024 8:30 AM CDT [facility] ABSOLUTE MONOCYTES 0.54 0.20 - 1.00 10(3)/mcL 12/19/2024 8:30 AM CDT [facility] ABSOLUTE EOSINOPHIL 0.38 0.00 - 0.40 10(3)/mcL 12/19/2024 8:30 AM CDT [facility] ABSOLUTE BASOPHILS 0.06 0.00 - 0.10 10(3)/[facility] 12/19/2024 8:30 AM CDT [facility] ABSOLUTE IMMATURE GRANULOCYTE 0.04(H) 0.00 - 0.03 10 (3) mcL. 12/19/2024 8:30 AM CDT [facility] NRBC PER 100 WBC 0 12/20/19 8:30 AM CDT [facility] Blood Venipuncture / Unknown 12/19/2024 8:15 AM CDT 12/19/2024 8:22 AM CDT Ga Naranjo MD HEMATOLOGY ORDERABLES Fi nal Result Performing Organization Address City/[facility]/ZIP Co de Phone Number [facility] [address] [place] [address] * Lipase [id number] (12/19/2024 8:15 AM CDT) LIPASE 34 8 - 78 U/L 12/19/2024 8:46 AM CDT [facility] Blood Venipuncture / Unknown 12/19/2024 8:15 AM CDT 12/19/2024 8:22 AM CDT Ga Naranjo MD CHEMISTRY ORDERABLES Fin al Result Performing Organization Address [facility] Co de Phone Number [facility] [address] [place] [address] * (ABNORMAL) Comprehensive Metabolic Panel (Cmp) [id number] (12/19/2024 8:15 AM CDT) SODIUM 139 136 - 145 mmol/L 12/19/2024 8:46 AM CDT [facility] POTASSIUM 4.0 3.5 - 5.1 mmol/L 12/19/2024 8:46 AM CDT [facility] CHLORIDE 110(H) 98 - 107 mmol/L 12/19/2024 8:46 AM CDT [facility] CO2, VENOUS 22 22 - 30 mmol/L 12/19/2024 8:46 AM CDT [facility] ANION GAP 11.0 <18.0 mmol/L 12/19/2024 8:46 AM CDT [facility] GLUCOSE 103(H) 70 - 99 mg/dL 12/19/2024 8:46 AM CDT [facility] BUN 13 5 - 18 mg/dL 12/19/2024 8:46 AM CDT [facility] CREATININE, BLOOD 0.65 0.60 - 1.00 mg/dL 12/19/2024 8:46 AM CDT [facility] BUN/CREATININE RATIO 20 12 - 20 ratio 12/19/2024 8:46 AM CDT [facility] TOTAL PROTEIN 6.6 6.0 - 8.0 g/dL 12/19/2024 8:46 AM [facility] ALBUMIN 4.2 3.5 - 5.0 g/dL 12/19/2024 8:46 AM T [facility] A/G RATIO 1.8 1.0 - 2.2 12/19/2024 8:46 AM [facility] CALCIUM 8.6(L) 8.7 - 10.5 mg/dL 12/19/2024 8:46 AM T [facility] T BILI 0.2 0.2 - 1.2 mg/dL 12/19/2024 8:46 AM [facility] SGOT (AST) 15 <43 U/L 12/19/2024 8:46 AM [facility] SGPT (ALT) 18 <56 U/L 12/19/2024 8:46 AM [facility] ALKALINE PHOSPHATASE 114 40 - 150 U/L 12/19/2024 8:46 AM [facility] GFR, ESTIMATED >60 >=60 12/19/2024 8:46 AM [facility] Comment: Creatinine Clearance is the preferred criteria for selecting drug dose adjustments in renally impaired patients. The GFR is provided as additional pertinent clinical information. GFR is reported in mL/min/1.73 sq m. Calculation based on the 2020 Chronic Kidney Disease Epidemiology Collaboration (CKD-EPI) equation refit without adjustment for race. GFR, EST. >60 >=60 025 8:46 AM [facility] Comment: Creatinine Clearance is the preferred criteria for selecting drug dose adjustments in renally impaired patients. The GFR is provided as additional pertinent clinical information. GFR is reported in mL/min/1.73 sq m. Calculation based on the 2009 Chronic Kidney Disease Epidemiology Collaboration (CKD-EPI). GFR, EST. NONAFRICAN >60 >=60 12/19/2024 8:46 AM CDT [facility] Comment: Creatinine Clearance is the preferred criteria for selecting drug dose adjustments in renally impaired patients. The GFR is provided as additional pertinent clinical information. GFR is reported in mL/min/1.73 sq m. Calculation based on the 2009 Chronic Kidney Disease Epidemiology Collaboration (CKD-EPI). Blood Venipuncture / Unknown 12/19/2024 8:15 AM CDT 12/19/2024 8:22 AM CDT us Ga Naranjo MD CHEMISTRY ORDERABLES Fin al Result Performing Organization Address [facility] Co de Phone Number [facility] [address] [place] [address] * (ABNORMAL) POCT Glucose (12/19/2024 8:05 AM CDT) GLUCOSE,BEDSID E POCT 111(H) 70 - 99 mg/dL 12/19/2024 8:05 AM CDT [facility] Blood 12/19/2024 8:05 AM CDT 12/19/2024 8:05 AM CDT us None Provider POINT OF CARE TESTING Final Resu lt Performing Organization Address [facility] Co de Phone Number [facility] [address] [place] [address] * EKG 12 LEAD (12/19/2024 8:00 AM CDT) Ventricular Rate 57 BPM EXTERNAL EKG Atrial Rate 57 BPM EXTERNAL EKG P-R Interval 138 ms EXTERNAL EKG QRS Duration 86 ms EXTERNAL EKG Q-T Duration 432 ms EXTERNAL EKG QTC CALCULATION 420 ms EXTERNAL EKG P [place] 50 degrees EXTERNAL EKG R [place] 66 degrees EXTERNAL EKG T [place] 53 degrees EXTERNAL EKG 12/19/2024 8:00 AM CDT Impressions EXTERNAL EKG - 12/20/2024 3:57 PM CDT Sinus bradycardia with sinus arrhythmia Otherwise normal ECG No previous ECGs available Confirmed by Justyn Conley ([id number]) on 12/20/2024 3:57:37 PM Narrative Procedure Note Justyn Conley MD - 12/20/2024 IMPRESSION: Sinus bradycardia with sinus arrhythmia Otherwise normal ECG No previous ECGs available Confirmed by Justyn Conley ([id number]) on 12/20/2024 3:57:37 PM us Ga Naranjo MD IMG ECG ORDERABLES Final Result EXTERNAL EKG * EKG SCAN (12/19/2024 12:00 AM CDT) 12/19/2024 us Provider Scan IMG ECG ORDERABLES Final Result Performing Organization Address City/[facility]/ZIP Co de Phone Number RESULTING AGENCY from Last 3 Months Insurance MEDICAID [employer] Advance Directives * Full Code (Latest Code Status on File) Date Activated Date Inactivated Comments 04/29/2022 2:52 AM 04/29/2022 4:48 PM CPR-Full T reatment: FULL ARREST: Attempt Resuscitation/CPR wit intubation and mechanical ventilation. PRE-ARREST: Use entire range of life support measures to stabilize the patient. Care Teams Silk Screen Etcher Relationship Specialty Start Date End Date Provider, None [place] PCP - General 03/31/21
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
--- OUTSIDE RECORDS SUMMARY | 2025-01-22 16:52 | XMS_ITS | Clinical Summary ---
Author Organization [facility] Address [address] [place] [address] Phone Care Team Providers Care Rubber Splicer Name Role Phone Provider, None Primary Care [...] 12/27/2024 7:37 PM CDT Emergency [facility] Emergency [address] [place] [address] Malcolm Tavares, MAKAYLA Sinusitis Discharge Disposition: Discharged to home or Selfcare 12/27/2024 Travel 12/19/2024 7:58 AM CDT - 12/19/2024 11:21 AM CDT Emergency [facility] Emergency [address] [place] [address] Ga Naranjo MD Near syncope Discharge Disposition: [...] PM CDT 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 WBC ESTERASE Negative Negative 12/27/2024 7:[address] [facility] NITRITE Negative Negative 12/27/2024 7:[address] [facility] PROTEIN, RANDOM URINE 15 mg/dL(A) Negative 12/27/2024 7:[address] [facility] URINE GLUCOSE, QUAL Negative Negative 12/27/2024 7:[address] [facility] URINE KETONES Negative Negative 12/27/2024 7:[address] [facility] UROBILINOGEN Normal Normal mg/dL 12/27/2024 7:[address] [facility] URINE BLOOD 50 /uL(A) Negative marine/ul 12/27/2024 7:[address] [facility] URINALYSIS COLOR Yellow 12/28/19 7:[address] [facility] URINALYSIS CLARITY Clear 12/27/2024 7:[address] [facility] WBC (Urine) 0-5 Negative, 0-5 /hpf 12/27/2024 7:[address] [facility] URINE RBC'S 3-5(A) Negative, 0-2 /hpf 12/27/2024 7:[address] [facility] EPITHELIAL CELLS Large amount squamous /lpf 12/27/2024 7:[address] [facility] BACTERIA, URINE Few(A) Negative /hpf 12/27/2024 7:[address] [facility] URINE MUCOUS Few 12/27/2024 7:[address] [facility] Urine URINE SPECIMEN / Unknown Non-Phlebotomy Collection / Unknown 12/27/2024 7:00 PM CDT 12/27/2024 7:00 PM CDT us Malcolm Tavares PAC URINE ORDERABLES Fin al Result [facility] [address] [place] [address] * POCT Urine HCG () (12/27/2024 6:00 PM CDT) [facility] POC URINE Negative POC URINE CONTROL Sourcing Manager Pass Urine 12/27/2024 6:[address] [facility] POINT OF CARE TESTIN G (MANUAL) Final Result * GROUP A STREP BY PCR (12/27/2024 5:43 PM CDT) [facility] GROUP A STREP BY PCR NOT DETECTED NOT DETECTED 12/27/2024 6:[address] [facility] Swab STRUCTURE OF ANTERIOR REGION OF NECK / Unknown Non-Phlebotomy Collection / Unknown 12/27/2024 5:43 PM CDT 12/27/2024 5:49 PM [address] Tavares [facility] MICROBIOLOGY - GENER AL ORDERABLES Final Result [facility] [address] [place] [address] * RSV,SARS-COV-2,INFLUENZA A&B BY PCR (12/27/2024 5:43 PM CDT) Only the most recent of2 resultswithin the time period is included. [facility] FLU A Negative Negative, Error 12/27/2024 6:[address] [facility] FLU B Negative Negative 12/27/2024 6:[address] [facility] RESP SYNC VIRUS Negative Negative 6:[address] [facility] SARSCOV2 NOT DETECTED (Reference Range for this test is Not Detected) 12/27/2024 6:[address] [facility] Comment:This test was perfor med by a Reverse Social Services Technician PCR Method. Nasal NASOPHARYNGEAL SWAB / Unknown Non-Phlebotomy Collection / Unknown 12/27/2024 5:43 PM CDT 12/27/2024 5:50 PM CDT Malcolm BENAVIDES MICROBIOLOGY - GENER AL ORDERABLES Final Result Performing Organization Address City/[facility] Co de Phone Number [facility] [address] [place] [address] * TROPONIN I, HIGH SENSITIVITY (HSTRP) (12/19/2024 8:15 AM CDT) [facility] TROPONIN I, HIGH SENSITIVITY- [place] <2.7 <=14.0 ng/L 12/19/2024 8:[address] [facility] Comment: High-sensitivity troponin I results are reported in ng/L making the result appear to be 1,000 times higher than the contemporary troponin I value which is reported in ng/ml. Results from [place]. Blood Venipuncture / Unknown 12/19/2024 8:15 AM CDT 12/19/2024 8:22 AM CDT Ga Naranjo MD CHEMISTRY ORDERABLES Fin al Result Performing Organization Address City/[facility] Co de Phone Number [facility] [address] [place] [address] * Gold Top Tube (12/19/2024 8:15 AM CDT) Blood No Phlebotomy Charged / Unknown 12/19/2024 8:15 AM CDT 12/19/2024 8:24 AM CDT Ga Naranjo MD CHEMISTRY ORDERABLES Fin al Result [facility] [address] [place] [address] * Blue Top Tube (12/19/2024 8:15 AM CDT) Blood No Phlebotomy Charged / Unknown 12/19/2024 8:15 AM CDT 12/19/2024 8:24 AM CDT us Ga Naranjo MD HEMATOLOGY ORDERABLES Fi nal Result [facility] [address] [place] [address] * (ABNORMAL) CBC with Auto Differential (12/19/2024 8:15 AM CDT) WBC 7.10 4.00 - 12.00 10(3)/mcL 12/19/2024 8:[address] [facility] RBC 4.11 3.80 - 5.30 10(6)/mcL 12/19/2024 8:[address] [facility] HEMOGLOBIN (HGB) 12.3 12.0 - 15.8 g/dL 12/19/2024 8:[address] [facility] HEMATOCRIT (HCT) 37.6 36.0 - 47.0 % 12/19/2024 8:[address] [facility] MCV 91.5 82.0 - 96.0 fL 12/19/2024 8:[address] [facility] MCH 29.9 26.0 - 34.0 pg 12/19/2024 8:[address] [facility] MCHC 32.7 31.0 - 36.0 g/dL 12/19/2024 8:[address] [facility] PLATELET COUNT 327 140 - 440 10(3)/mcL 12/19/2024 8:[address] [facility] RDW 12.9 11.8 - 15.5 % 12/19/2024 8:[address] [facility] MPV 10.7 9.7 - 12.4 fL 12/19/2024 8:[address] [facility] NEUTROPHILS 45.2(L) 47.0 - 73.0 % 12/19/2024 8:[address] [facility] LYMPHOCYTES 40.4 18.0 - 42.0 % 12/19/2024 8:[address] [facility] MONOCYTES 7.6 4.0 - 12.0 % 12/19/2024 8:[address] [facility] EOSINOPHILS 5.4(H) 0.0 - 5.0 % 12/19/2024 8:[address] [facility] BASOPHILS 0.8 0.0 - 1.0 % 12/19/2024 8:[address] [facility] IMMATURE GRANULOCYTE 0.6(H) 0.0 - 0.4 % 12/19/2024 8:[address] [facility] Comment:Immature Granulocyte s includes Metamyelocytes, Myelocytes, and Promyelocytes. ABSOLUTE NEUTROPHILS 3.21 1.60 - 7.70 10(3)/mcL 12/19/2024 8:[address] [facility] ABSOLUTE LYMPHOCYTES 2.87 1.30 - 3.20 10(3)/mcL 12/19/2024 8:[address] [facility] ABSOLUTE MONOCYTES 0.54 0.20 - 1.00 10(3)/mcL 12/19/2024 8:[address] [facility] ABSOLUTE EOSINOPHIL 0.38 0.00 - 0.40 10(3)/mcL 12/19/2024 8:[address] [facility] ABSOLUTE BASOPHILS 0.06 0.00 - 0.10 10(3)/[facility] 12/19/2024 8:[address] [facility] ABSOLUTE IMMATURE GRANULOCYTE 0.04(H) 0.00 - 0.03 10 (3) mcL. 12/19/2024 8:[address] [facility] NRBC PER 100 WBC 0 12/20/19 8:[address] [facility] Blood Venipuncture / Unknown 12/19/2024 8:15 AM CDT 12/19/2024 8:22 AM CDT Ga Naranjo MD HEMATOLOGY ORDERABLES Fi nal Result Performing Organization Address City/[facility]/ZIP Co de Phone Number [facility] [address] [place] [address] * Lipase [id number] (12/19/2024 8:15 AM CDT) LIPASE 34 8 - 78 U/L 12/19/2024 8:[address] [facility] Blood Venipuncture / Unknown 12/19/2024 8:15 AM CDT 12/19/2024 8:22 AM CDT Ga Naranjo MD CHEMISTRY ORDERABLES Fin al Result Performing Organization Address [facility] Co de Phone Number [facility] [address] [place] [address] * (ABNORMAL) Comprehensive Metabolic Panel (Cmp) [id number] (12/19/2024 8:15 AM CDT) SODIUM 139 136 - 145 mmol/L 12/19/2024 8:[address] [facility] POTASSIUM 4.0 3.5 - 5.1 mmol/L 12/19/2024 8:[address] [facility] CHLORIDE 110(H) 98 - 107 mmol/L 12/19/2024 8:[address] [facility] CO2, VENOUS 22 22 - 30 mmol/L 12/19/2024 8:[address] [facility] ANION GAP 11.0 <18.0 mmol/L 12/19/2024 8:[address] [facility] GLUCOSE 103(H) 70 - 99 mg/dL 12/19/2024 8:[address] [facility] BUN 13 5 - 18 mg/dL 12/19/2024 8:[address] [facility] CREATININE, BLOOD 0.65 0.60 - 1.00 mg/dL 12/19/2024 8:[address] [facility] BUN/CREATININE RATIO 20 12 - 20 ratio 12/19/2024 8:[address] [facility] TOTAL PROTEIN 6.6 6.0 - 8.0 g/dL 12/19/2024 8:46 AM [facility] ALBUMIN 4.2 3.5 - 5.0 g/dL 12/19/2024 8:[address] [facility] A/G RATIO 1.8 1.0 - 2.2 12/19/2024 8:46 AM [facility] CALCIUM 8.6(L) 8.7 - 10.5 mg/dL 12/19/2024 8:[address] [facility] T BILI 0.2 0.2 - 1.2 mg/dL 12/19/2024 8:46 AM [facility] SGOT (AST) 15 <43 U/L 12/19/2024 8:46 AM [facility] SGPT (ALT) 18 <56 U/L 12/19/2024 8:46 AM [facility] ALKALINE PHOSPHATASE 114 40 - 150 U/L 12/19/2024 8:46 AM [facility] GFR, ESTIMATED >60 >=60 12/19/2024 8:46 AM [facility] Comment: Creatinine Clearance is the preferred criteria for selecting drug dose adjustments in renally impaired patients. The GFR is provided as additional pertinent clinical information. GFR is reported in mL/min/1.73 sq m. Calculation based on the 2020 Chronic Kidney Disease Epidemiology Collaboration (CKD-EPI) equation refit without adjustment for race. GFR, EST. >60 >=60 025 8:46 AM [facility] Comment: Creatinine Clearance is the preferred criteria for selecting drug dose adjustments in renally impaired patients. The GFR is provided as additional pertinent clinical information. GFR is reported in mL/min/1.73 sq m. Calculation based on the 2009 Chronic Kidney Disease Epidemiology Collaboration (CKD-EPI). GFR, EST. NONAFRICAN >60 >=60 12/19/2024 8:[address] [facility] Comment: Creatinine Clearance is [...] ORDERABLES Fin al Result Performing Organization Address [facility] Co de Phone Number [facility] [address] [place] [address] * (ABNORMAL) POCT Glucose (12/19/2024 8:05 AM CDT) GLUCOSE,BEDSID E POCT 111(H) 70 - 99 mg/dL 12/19/2024 8:[address] [facility] Blood 12/19/2024 8:05 AM CDT 12/19/2024 8:05 AM CDT us None Provider POINT OF CARE TESTING Final Resu lt Performing Organization Address [facility] Co de Phone Number [facility] [address] [place] [address] * EKG 12 LEAD (12/19/2024 8:00 AM CDT) Ventricular Rate 57 BPM EXTERNAL EKG Atrial Rate 57 BPM EXTERNAL EKG P-R Interval 138 ms EXTERNAL EKG QRS Duration 86 ms EXTERNAL EKG Q-T Duration 432 ms EXTERNAL EKG QTC CALCULATION 420 ms EXTERNAL EKG P [place] 50 degrees EXTERNAL EKG R [place] 66 degrees EXTERNAL EKG T [place] 53 degrees EXTERNAL EKG 12/19/2024 8:00 AM CDT Impressions EXTERNAL EKG - 12/20/2024 3:57 PM CDT Sinus bradycardia with sinus arrhythmia Otherwise normal ECG No previous ECGs available Confirmed by Justyn Conley ([id number]) on 12/20/2024 3:57:37 PM Narrative Procedure Note Justyn Conley MD - 12/20/2024 IMPRESSION: Sinus bradycardia with sinus arrhythmia Otherwise normal ECG No previous ECGs available Confirmed by Justyn Conley ([id number]) on 12/20/2024 3:57:37 PM us Ga Naranjo MD IMG ECG ORDERABLES Final Result EXTERNAL EKG * EKG SCAN (12/19/2024 12:00 AM CDT) 12/19/2024 us Provider Scan IMG ECG ORDERABLES Final Result Performing Organization Address City/[facility]/ZIP Co de Phone Number RESULTING AGENCY from Last 3 Months Insurance MEDICAID [employer] Advance Directives * Full Code (Latest Code Status on File) Date Activated Date Inactivated Comments 04/29/2022 2:52 AM 04/29/2022 4:48 PM CPR-Full T reatment: FULL ARREST: Attempt Resuscitation/CPR wit intubation and mechanical ventilation. PRE-ARREST: Use entire range of life support measures to stabilize the patient. Care Teams Rubber Splicer Relationship Specialty Start Date End Date Provider, None [place] PCP - General 03/31/21
== END 2025-01-22 15:24 | disposition home or self-care (01) ==
PROVIDERS: Emergency Provider Nurse Practitioner Family
DX: T50.905A Adverse effect of unspecified drugs, medicaments and biological substances, initial encounter (principal)
CPT/HCPCS: 99283; A9270; J7512